=== PATIENT | female | born 1965 | race Caucasian/White ===

== ENCOUNTER → 2023-10-13 | Emergency (ER) | payer OTHER ==
[~2023-10-13] MED LIST: CEFTRIAXONE 2000 MG/VIAL ONE; FENTANYL CITR 100 MCG/2 ML ONE; KETOROLAC 30 MG/ML INJ ONE; LIDOCAINE 2% W/EPI 1:200,000 MPF 20 ML VIAL IM ONE; SMZ./TMP. 800/160 MG TABLET ONE
--- OUTSIDE RECORDS SUMMARY | 2023-10-13 13:58 | XMS REPORT | Continuity of Care Document ---
Author Name Unknown Address [address] [facility] [address] [place] [address] [facility] thconnect Address [address] [facility] [address] [place] [address] Care Team Providers Care Deli Cutter Slicer Name Role Phone Rios Cueto Primary Care Physician [phone] Doctor Unassigned, [place] Attending Clinician U José Miguel Hendricks Attending Clinician Unavailable CAROLA MEYERS Attending Clinician Unavailable Carola Meyers MD Attending Clinician [phone] Lisa Croft NP Attending Clinician + [phone] LISA CROFT Attending Clinician Unavaila ble GC_TFCLLC_Giles_M Attending Clinician UnavailAria Garcia Attending Clinician [phone] FANI HILLIARD Attending Clinician Unavailable SHAHLA COLON Attending Clinician Unavail able YESSENIA CARTWRIGHT Attending Clinician Unavailable SHAHLA COLON Attending Clinician Unavail able José Miguel Padilla Admitting Clinician Unavailable CAROLA MEYERS Admitting Clinician Unavailable Aria Olson Admitting Clinician Unavailabl e GC_TFCLLC_Giles_M Admitting Clinician UnavailFANI Lowery Admitting Clinician Unavailable SHAHLA COLON Admitting Clinician Unavail YESSENIA Elizondo Admitting Clinician Unavailable Payers Payer Name Policy Type Policy Number Effective Date Expirati on Date Source [facility] [place] [place]MED[place]PLAC[place] - [place]) [id number] 1959 00:00:00 Problems Condition Name Condition Details Condition Category Status Onset Date Resolution Date Last Treatment Date Treating Clinician Comments Source Severe obesity Severe Obesity Problem Active 4-18 00:00: 00 [facility] Lymphocyto sis Lymphocyto sis Problem Active 418 00:00: 00 [facility] Allergic rhinitis Allergic Rhinitis Problem Active 4-18 00:00: 00 [facility] Acute dermatitis Acute Dermatitis Problem Active 418 00:00: 00 [facility] Medication monitoring Medication Monitoring Problem Active 18 00:00: 00 [facility] Screening for cardiovasc ular system disease Screening for Cardiovasc ular System Disease Problem Active 18 00:00: 00 [facility] 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 angelita Problem Active 418 00:00: 00 [facility] Closed fracture of left wrist Closed fracture of left wrist Problem Active 3-12 00:00: [address] [facility] (LUF/LI V/SA) Systemic lupus erythemato angelita Systemic lupus erythemato angelita Problem Active [facility] (LUF/LI V/SA) No known active problems No known active problems Disease [facility] History of Past Illness Condition Name Condition Details Condition Category Status Onset Date Resolution Date Last Treatment Date Treating Clinician Comments Source Low back pain Low back pain Problem Active 02-19 00:00: 00 2019-02-19 00:00:[address] [facility] (LUF/LI V/SA) Allergies, Adverse Reactions, Alerts Allergy Name Allergy Type Status Severity Reaction(s) Onset Date Inactive Date Treating Clinician Comments Source No Known Allergie s DA Active U 12-20 00:00: 00 [facility] No Known Drug Allergie s DA Active [facility] (LUF/LI V/SA) NO KNOWN ALLERGIE S Drug Class Active [facility] Social History Social Habit Start Date Stop Date Quantity Comments Source Gender identity [facility] of tobacco use Cigarette Smoker [facility] History SDOH Alcohol Frequency [facility] History SDOH Alcohol Std Drinks [facility] History SDOH Alcohol Binge [facility] Exposure to SARS-CoV-2 (event) 2022-04-10 00:00:00 2022-04-20 11:51:00 Not sure [facility] History of Social function 2022-04-20 00:00:00 2022-04-20 00:00:00 [facility] Cigarettes smoked current (pack per day) - Reported 2022-04-20 00:00:00 2022-04-20 00:00:00 [facility] Cigarette pack-years 2022-04-20 00:00:00 2022-04-20 00:00:00 [facility] Tobacco use and exposure 2022-04-20 00:00:00 2022-04-20 00:00:00 Smokeless tobacco non-user [facility] Alcohol intake 2022-04-20 00:00:00 2022-04-20 00:00:00 Current drinker of alcohol (finding) [facility] Alcohol Comment 2022-04-20 00:00:00 2022-04-20 00:00:00 occasionally [facility] Sex Assigned At 1965 00:00:00 1965 00:00:00 [facility] Smoking Status Start Date Stop Date Source Smokes tobacco daily 2022-04-20 00:00:00 [facility] Medications Ordered Medication Name Filled Medication Name Start Date Stop Date Current Medication? Ordering Clinician Indication Dosage Frequency Signature (SIG) Comments Components Source POTASSIUM-9 9 ORAL 04-21 12:01: 50 Yes Take by mouth. [facility] POTASSIUM-9 9 ORAL 04-21 12:01: 50 Yes Take by mouth. [facility] POTASSIUM-9 9 ORAL 04-21 12:01: 50 Yes Take by mouth. [facility] furosemide 20 mg tablet 04-19 00:00: 00 Yes [facility] furosemide 20 mg tablet 04-19 00:00: 00 Yes [facility] furosemide 20 mg tablet 04-19 00:00: 00 Yes [facility] furosemide 20 mg tablet 04-19 00:00: 00 Yes [facility] PROAIR HFA 90 mcg/actuati on inhaler 04-01 00:00: 00 Yes 2{puff} Inhale 2 Puffs every 4 (four) hours. [facility] ergocalcife rol, vitamin d2, 1,250 mcg (50,000 unit) capsule 04-01 00:00: 00 Yes TAKE 1 CAPSULE BY MOUTH EVERY WEEK [facility] gabapentin 800 mg tablet 04-01 00:00: 00 Yes 800mg Take 800 mg by mouth in the morning and 800 mg at noon and 800 mg in the evening. [facility] methocarbam oL 500 mg tablet 04-01 00:00: 00 Yes 500mg Take 500 mg by mouth in the morning and 500 mg at noon and 500 mg in the evening. [facility] levothyroxi ne 200 mcg tablet 04-01 00:00: 00 Yes 200ug Take 200 mcg by mouth. [facility] DULoxetine 60 mg capsule 04-01 00:00: 00 Yes 60mg Take 60 mg by mouth in the morning. [facility] PROAIR HFA 90 mcg/actuati on inhaler 04-01 00:00: 00 Yes 2{puff} Inhale 2 Puffs every 4 (four) hours. [facility] ergocalcife rol, vitamin d2, 1,250 mcg (50,000 unit) capsule 04-01 00:00: 00 Yes TAKE 1 CAPSULE BY MOUTH EVERY WEEK [facility] gabapentin 800 mg tablet 04-01 00:00: 00 Yes 800mg Take 800 mg by mouth in the morning and 800 mg at noon and 800 mg in the evening. [facility] methocarbam oL 500 mg tablet 04-01 00:00: 00 Yes 500mg Take 500 mg by mouth in the morning and 500 mg at noon and 500 mg in the evening. [facility] levothyroxi ne 200 mcg tablet 04-01 00:00: 00 Yes 200ug Take 200 mcg by mouth. [facility] DULoxetine 60 mg capsule 04-01 00:00: 00 Yes 60mg Take 60 mg by mouth in the morning. [facility] PROAIR HFA 90 mcg/actuati on inhaler 04-01 00:00: 00 Yes 2{puff} Inhale 2 Puffs every 4 (four) hours. [facility] ergocalcife rol, vitamin d2, 1,250 mcg (50,000 unit) capsule 04-01 00:00: 00 Yes TAKE 1 CAPSULE BY MOUTH EVERY WEEK [facility] gabapentin 800 mg tablet 04-01 00:00: 00 Yes 800mg Take 800 mg by mouth in the morning and 800 mg at noon and 800 mg in the evening. [facility] methocarbam oL 500 mg tablet 04-01 00:00: 00 Yes 500mg Take 500 mg by mouth in the morning and 500 mg at noon and 500 mg in the evening. [facility] levothyroxi ne 200 mcg tablet 04-01 00:00: 00 Yes 200ug Take 200 mcg by mouth. [facility] DULoxetine 60 mg capsule 04-01 00:00: 00 Yes 60mg Take 60 mg by mouth in the morning. [facility] PROAIR HFA 90 mcg/actuati on inhaler 04-01 00:00: 00 Yes 2{puff} Inhale 2 Puffs every 4 (four) hours. [facility] ergocalcife rol, vitamin d2, 1,250 mcg (50,000 unit) capsule 04-01 00:00: 00 Yes TAKE 1 CAPSULE BY MOUTH EVERY WEEK [facility] gabapentin 800 mg tablet 04-01 00:00: 00 Yes 800mg Take 800 mg by mouth in the morning and 800 mg at noon and 800 mg in the evening. [facility] methocarbam oL 500 mg tablet 04-01 00:00: 00 Yes 500mg Take 500 mg by mouth in the morning and 500 mg at noon and 500 mg in the evening. [facility] levothyroxi ne 200 mcg tablet 04-01 00:00: 00 Yes 200ug Take 200 mcg by mouth. [facility] DULoxetine 60 mg capsule 04-01 00:00: 00 Yes 60mg Take 60 mg by mouth in the morning. [facility] triamcinolo ne acetonide 0.1 % cream 03-22 00:00: 00 Yes APPLY THIN LAYER TOPICALLY TO THE AFFECTED AREA TWICE DAILY [facility] triamcinolo ne acetonide 0.1 % cream 03-22 00:00: 00 Yes APPLY THIN LAYER TOPICALLY TO THE AFFECTED AREA TWICE DAILY [facility] triamcinolo ne acetonide 0.1 % cream 03-22 00:00: 00 Yes APPLY THIN LAYER TOPICALLY TO THE AFFECTED AREA TWICE DAILY [facility] triamcinolo ne acetonide 0.1 % cream 03-22 00:00: 00 Yes APPLY THIN LAYER TOPICALLY TO THE AFFECTED AREA TWICE DAILY [facility] Saxenda 3 mg/0.5 mL (18 mg/3 mL) subcutaneou s pen injector 0.6 mg everyday for the first week, 1.2 mg everyday for the second week, 1.8 mg everyday for the third week, and 2.4 mg everyday for the fourth week Saxenda 3 mg/0.5 mL (18 mg/3 mL) subcutaneou s pen injector 0.6 mg everyday for the first week, 1.2 mg everyday for the second week, 1.8 mg everyday for the third week, and 2.4 mg everyday for the fourth week No Saxenda 3 mg/0.5 mL (18 mg/3 mL) subcutaneo us pen injector 0.6 mg everyday for the first week, 1.2 mg everyday for the second week, 1.8 mg everyday for the third week, and 2.4 mg everyday for the fourth week [facility] Ibuprofen 800 MG Oral Tablet Ibuprofen 800 MG Oral Tablet Yes 800mg Q7.00H orally 3 to 4 times per day as needed. (as needed for pain) [facility] (LUF/LI V/SA) triamcinolo ne acetonide 0.1 % topical cream APPLY THIN LAYER TOPICALLY TO THE AFFECTED AREA TWICE DAILY triamcinolo ne acetonide 0.1 % topical cream APPLY THIN LAYER TOPICALLY TO THE AFFECTED AREA TWICE DAILY No triamcinol one acetonide 0.1 % topical cream APPLY THIN LAYER TOPICALLY TO THE AFFECTED AREA TWICE DAILY [facility] Vital Signs Vital Name Observation Time Observation Value Comments S atul Systolic blood pressure 2022-04-20 16:52:00 108 mm[Hg] [facility] Diastolic blood pressure 2022-04-20 16:52:00 75 mm[Hg] [facility] Heart rate 2022-04-20 16:52:00 59 /min [facility] Body temperature 2022-04-20 16:52:00 36.56 April [facility] Respiratory rate 2022-04-20 16:52:00 18 /min [facility] Body height 2022-04-20 16:52:00 157.5 cm [facility] Oxygen saturation in Arterial blood by Pulse oximetry 2022-04-20 16:52:00 95 /min [facility] BP Diastolic 2021-11-29 00:00:00 70 mm[Hg] [facility] Height 2021-11-29 00:00:00 64 [in_i] [facility] BMI (Body Mass Index) 2021-11-29 00:00:00 53.9 kg/m2 [facility] BP Systolic 2021-11-29 00:00:00 112 mm[Hg] [facility] Body Weight 2021-11-29 00:00:00 5024 [oz_av] [facility] Height 2019-10-31 18:26:00 154.94 CM Weight 2019-10-31 18:26:00 137.8 KG Weight 2019-10-27 07:29:00 134 KG Body Temperature 2019-10-31 18:26:00 98.4 [degF] [facility] (LUF/ROSEMARIE/SA) Pulse Rate 2019-10-31 18:26:00 84 /min [facility] (LUF/[facility]/SA) Respiratory Rate 2019-10-31 18:26:00 18 /min [facility] (LUF/ROSEMARIE/SA) O2% BldC Oximetry 2019-10-31 18:26:00 95 % [facility] (LUF/ROSEMARIE/SA) BP Systolic 2019-10-31 18:26:00 175 mm[Hg] [facility] (LUF/ROSEMARIE/SA) BP Diastolic 2019-10-31 18:26:00 101 mm[Hg] [facility] (LUF/ROSEMARIE/SA) Height 2019-10-31 18:26:00 61 [in_i] [facility] (LUF/ROSEMARIE/SA) Weight 2019-10-31 18:26:00 137.8 kg [facility] (LUF/ROSEMARIE/SA) BMI (Body Mass Index) 2019-10-31 18:26:00 58.1 kg/m2 [facility] (LUF/ROSEMARIE/SA) Body Temperature 2019-02-19 21:35:00 98.9 F [facility] (LUF/ROSEMARIE/SA) Pulse Rate 2019-02-19 21:35:00 86 /min [facility] (LUF/ROSEMARIE/SA) Respiratory Rate 2019-02-19 21:35:00 18 /min [facility] (LUF/ROSEMARIE/SA) O2% BldC Oximetry 2019-02-19 21:35:00 97 % [facility] (LUF/ROSEMARIE/SA) BP Systolic 2019-02-19 21:35:00 125 mm[Hg] [facility] (LUF/ROSEMARIE/SA) BP Diastolic 2019-02-19 21:35:00 80 mm[Hg] [facility] (LUF/ROSEMARIE/SA) Height 2019-02-19 21:31:00 62 in [facility] (LUF/ROSEMARIE/SA) Weight Measured 2019-02-19 21:31:00 288.14 lbs [facility] (LUF/ROSEMARIE/SA) BMI (Body Mass Index) 2019-02-19 21:31:00 53 kg/m2 [facility] (LUF/ROSEMARIE/SA) Procedures Procedure Date / Time Performed Performing Clinician Source REFERRAL- REQUEST/RESPONSE 2023-02-28 05:01:00 D filemonor Unassigned, [place] [facility] [id number] 2022-09-19 00:00:00 [facility] [id number] 2022-09-16 00:00:00 [facility] [id number] 2022-09-16 00:00:00 [facility] [id number] 2022-09-16 00:00:00 [facility] US PELVIS COMPLETE WITH TRANSVAGINAL 2022-05-09 20:36:00 AdumCarola [facility] POCT URINALYSIS 2022-04-20 17:07:00 [facility] Encounters Start Date/Time End Date/Time Encounter Type Admission Type Attending Clinicians Care Facility Care Department Encounter ID Source 2023-02-28 00:00:00 2023-02-28 00:00:00 Orders Only Doctor Unassigned, [place] [facility] [id number] [facility] 2022-10-24 08:49:00 2022-10-24 08:49:00 Outpatient José Miguel Grove RADI [id number] [facility] 2022-09-29 11:28:00 2022-09-29 11:28:00 Outpatient José Miguel Grove CPUL [id number] [facility] 2022-09-16 16:26:00 2022-09-22 16:57:00 Inpatient José Miguel Grove MED [id number] [facility] 2022-07-18 10:28:00 2022-07-18 10:28:00 Outpatient José Miguel Grove DIAB [id number] [facility] 2022-07-18 09:16:00 2022-07-18 09:16:00 Outpatient VALENTINA Padilla José Miguel [facility] RADI [id number] [facility] 2022-06-17 12:44:00 2022-06-17 12:44:00 Outpatient VALENTINA Padilla José Miguel [facility] DIAB [id number] [facility] 2022-05-09 14:10:44 2022-05-09 23:59:00 Outpatient R CAROLA MEYERS [facility] [id number] [facility] 2022-05-09 14:10:44 2022-05-09 23:59:00 Hospital Encounter Carola Meyers [facility] [id number] [id number] [facility] 2022-04-20 11:00:00 2022-04-20 12:24:36 Office Visit Carola Meyers [facility] [id number] [id number] [id number] [id number] [facility] 2022-04-20 11:00:00 2022-04-20 12:24:36 Outpatient R LISA CROFT [facility] [id number] [facility] 2022-04-20 11:00:00 2022-04-20 12:24:36 Outpatient R LISA CROFT [facility] [id number] [facility] 2022-04-20 00:00:00 2022-04-20 00:00:00 Orders Only Doctor Unassigned, [place] [facility] [id number] [id number] [id number] [id number] [facility] 2022-04-20 00:00:00 2022-04-20 00:00:00 Telephone AdCarola hung [facility] [id number] [id number] [id number] [facility] 2021-12-24 06:43:00 2021-12-24 06:43:00 Outpatient José Miguel Grove [facility] DAYS [id number] [facility] 2021-11-30 03:38:00 2021-11-30 03:38:00 Outpatient GC_TFCLLC_G iles_M [facility] PRIV [id number] [facility] 2021-11-29 04:52:00 2021-11-29 04:52:00 Outpatient GC_TFCLLC_G iles_M [facility] [id number] [facility] 2021-11-29 00:00:00 2021-11-29 00:00:00 Aria Olson MD: [address] [place], [place] [address]y, [facility] [address], [place] [address] , Ph. Critical access hospital - GC_TFCLLC_P [facility] Office* [id number] [facility] 2021-11-29 00:00:00 2021-11-29 00:00:00 Outpatient Aria Olson [facility] [id number] 2021-11-22 04:08:00 2021-11-22 04:08:00 Outpatient GC_TFCLLC_G iles_M [facility] [id number] [facility] 2019-10-31 18:20:00 2019-10-31 20:06:00 UNS PHYSL FX LOW RAD LT SUB FX RTN [address] EMD [id number] [facility] (LUF/LI V/SA) 2019-02-19 21:24:00 2019-02-19 23:06:00 LOW BACK PAIN SHAHLA SULTANA [facility], [address] [place] [address] [facility] [id number] [facility] (LUF/LI V/SA) Results Test Description Test Time Test Comments Results Resul t Comments Source - XR UGI DBL CONTRAST 2022-10-24 10:31:00 [facility]Name: BUTCH ROCHA : 1965 Sex: F FAX: José Miguel Smith MD [phone] [place]: B St: REG Name: BUTCH ROCHA [facility] : 1965 Age/S: 57/F [address] [facility] Unit #: [id number] Loc: [place] [address] Phys: José Miguel Padilla MD Acct: [id number] Dis Date: Status: REG CLI PHONE #: [phone] Exam Date: 10/24/202257 FAX #: [phone] Reason: POST SLEEVE GASTRECTOMY DYSPHAGIA EXAMS: CPT CODE: [id number] XR UGI DBL CONTRAST [id number] HISTORY: Post gastric sleeve and dysphasia. COMPARISON: Upper GI series from September 19, 2022 and June 20182021. Upper GI series: Esophagus distended well. Free passage of contrast through the esophagus. No constricting or obstructing lesions. Moderate reflux is noted. Free passage through the GE junction. Gastric sleeve is unremarkable without evidence for leakage. Free passage into the small bowel. Barium pill was administered with free passage through the GE junction. IMPRESSION: Moderate reflux. No esophagitis obstructing or constricting lesions. Gastric sleeve is unremarkable without leakage or obstruction. Fluoroscopy time 0.7 minutes with total dose of 400 mGy. 24 images were obtained. at 1031 Reported and signed by: Kodi Aguilar M.D. CC: José Miguel Padilla MD Technologist: RT ROSA ELENA(R) Trnscrd Date/Time/By: 10/24/2022 (1031) : By: [email or web address] Orig Print D/T: S: 10/24/2022 (2017) PAGE 1 Signed Report CBC W/AUTO [id number] 05:44:00* Test Item Value Reference Range Interpretation Comme nts WHITE BLOOD CELL (test code = WBC) 7.8 K/mm3 4.5-12.5 N RED BLOOD CELL (test code = RBC) 3.97 mill/mm3 3.7-5.2 N HEMOGLOBIN (test code = HGB) 12.8 gram/dL 11.5-15.5 N HEMATOCRIT (test code = HCT) 38.7 % 36.0-46.0 N MEAN CELL VOLUME (test code = MCV) 97.5 fL 80-98 N MEAN CELL HGB (test code = MCH) 32.2 picogram 27.0-33.0 N MEAN CELL HGB CONCETRATION (test code = MCHC) 33.1 gram/dL 33.0-36.0 N RED CELL DISTRIBUTION WIDTH (test code = RDW) 15.2 % 11.6-16.2 N RED CELL DISTRIBUTION WIDTH SD (test code = RDW-SD) 55.3 fL 37.0-51.0 H PLATELET COUNT (test code = PLT) 202 K/mm3 150-450 N MEAN PLATELET VOLUME (test c ode = MPV) 9.6 fL 6.7-11.0 N NEUTROPHIL % (test code = NT%) 70.7 % 39.0-69.0 H IMMATURE GRANULOCYTE % (test code = IG%) 0.3 % 0.0-5.0 N LYMPHOCYTE % (test code = LY%) 17.5 % 25.0-55.0 L MONOCYTE % (test code = MO%) 8.6 % 0.0-10.0 N EOSINOPHIL % (test code = EO%) 2.4 % 0.0-5.0 N BASOPHIL % (test code = BA%) 0.5 % 0.0-1.0 N NUCLEATED RBC % (test code = NRBC%) 0.0 % 0-0 N NEUTROPHIL # (test code = NT#) 5.48 K/mm3 1.8-7.7 N IMMATURE GRANULOCYTE # (test code = IG#) 0.02 x10 3/uL 0-0.03 N LYMPHOCYTE # (test code = LY#) 1.36 K/mm3 1.0-5.0 N MONOCYTE # (test code = MO#) 0.67 K/mm3 0-0.8 N EOSINOPHIL # (test code = EO#) 0.19 K/mm3 0.0-0.5 N BASOPHIL # (test code = BA#) 0.04 K/mm3 0.0-0.2 N NUCLEATED RBC # (test code = NRBC#) 0.00 K/mm3 0.0-0.1 N MANUAL DIFF REQUIRED (test c ode = MDIFF) NO BASIC METABOLIC [id number] 05:37:00* Test Item Value Reference Range Interpretation Comme nts SODIUM (test code = NA) 139 mmol/L 136-145 N POTASSIUM (test code = K) 3.8 mmol/L 3.5-5.1 N CHLORIDE (test code = CL) 106.0 mmol/L 98-107 N CARBON DIOXIDE (test code = CO2) 31.0 mmol/L 21-32 N ANION GAP (test code = GAP) 5.8 10-20 L GLUCOSE (test code = GLU) 85 mg/dL 74-106 N BLOOD UREA NITROGEN (test code = BUN) 9 mg/dL 7-18 N GLOMERULAR FILTRATION RATE (test code = GFR) > 60 mL/min See_Comment The Glomerular Filtration Rate is a calculated parameterbased on serum Creatinine, patient age and sex. GFR valuesless than 60 mL/min/1.73 square meters are indicative ofChronic Kidney Disease. Values less than 15 mL/min/1.73square meters indicate Kidney failure. The calculation forGFR is based on the CKD-EPI (2020) calculation. This formulais race indifferent and is the recommended formula for GFRby the National Kidney Foundation for Adults.The GFR will not calculate if the sex is unknown or if thepatient's age is <18 years. [Automated message] The system which generated this result transmitted reference range: >=60. The reference range was not used to interpret this result as normal/abnormal. CREATININE (test code = CREAT) 0.60 mg/dL 0.55-1.02 N Note change in reference range due to change in reagent. BUN/CREATININE RATIO (test code = BUN/CREA) 13.8 10-20 N CALCIUM (test code = CA) 7.9 mg/dL 8.5-10.1 L CBC W/AUTO [id number] 05:33:00* Test Item Value Reference Range Interpretation Comme nts WHITE BLOOD CELL (test code = WBC) 7.7 K/mm3 4.5-12.5 N RED BLOOD CELL (test code = RBC) 3.88 mill/mm3 3.7-5.2 N HEMOGLOBIN (test code = HGB) 12.4 gram/dL 11.5-15.5 N HEMATOCRIT (test code = HCT) 38.1 % 36.0-46.0 N MEAN CELL VOLUME (test code = MCV) 98.2 fL 80-98 H MEAN CELL HGB (test code = MCH) 32.0 picogram 27.0-33.0 N MEAN CELL HGB CONCETRATION (test code = MCHC) 32.5 gram/dL 33.0-36.0 L RED CELL DISTRIBUTION WIDTH (test code = RDW) 15.5 % 11.6-16.2 N RED CELL DISTRIBUTION WIDTH SD (test code = RDW-SD) 55.8 fL 37.0-51.0 H PLATELET COUNT (test code = PLT) 178 K/mm3 150-450 N MEAN PLATELET VOLUME (test c ode = MPV) 9.5 fL 6.7-11.0 N NEUTROPHIL % (test code = NT%) 72.5 % 39.0-69.0 H IMMATURE GRANULOCYTE % (test code = IG%) 0.3 % 0.0-5.0 N LYMPHOCYTE % (test code = LY%) 15.8 % 25.0-55.0 L MONOCYTE % (test code = MO%) 9.1 % 0.0-10.0 N EOSINOPHIL % (test code = EO%) 1.9 % 0.0-5.0 N BASOPHIL % (test code = BA%) 0.4 % 0.0-1.0 N NUCLEATED RBC % (test code = NRBC%) 0.0 % 0-0 N NEUTROPHIL # (test code = NT#) 5.58 K/mm3 1.8-7.7 N IMMATURE GRANULOCYTE # (test code = IG#) 0.02 x10 3/uL 0-0.03 N LYMPHOCYTE # (test code = LY#) 1.22 K/mm3 1.0-5.0 N MONOCYTE # (test code = MO#) 0.70 K/mm3 0-0.8 N EOSINOPHIL # (test code = EO#) 0.15 K/mm3 0.0-0.5 N BASOPHIL # (test code = BA#) 0.03 K/mm3 0.0-0.2 N NUCLEATED RBC # (test code = NRBC#) 0.00 K/mm3 0.0-0.1 N [id number] 15:35:00* Test Item Value Reference Range Interpretation Comme nts SURGICAL (test code = SR) Justice UN DATE: 09/19/22 [facility] PAGE 1 RUN TIME: 1536 Specimen Inquiry RUN USER: INTERFACE Ciro ATIENT: BUTCH ROCHA #: [id number] LOC: VICTOR MANUEL [place] #: [id number] AGE/SX: 57/F ROOM: [facility]9 RE09/16/22REG DR: José Miguel Padilla MD : 65 BED: A DIS: STATUS: ADM IN TLOC: SPEC #: [id number] RECD: 09/16/22 STATUS: MARY ANN RE #: [id number] GEORGE: 09/16/22- SUBM DR: José Miguel Padilla MD ENTERED: 09/16/22 SP TYPE: SURGICAL OTHR DR: Marco Anthony MD ORDERED: [id number], ANATOMIC SPEC COPIES TO: José Miguel Padilla MD [address] [place] [address] Marco Anthony MD [address] [address] [place], [place] [id number] PROCEDURES: [id number] (09/16/22) TISSUES: STOMACH SUBTOTAL / TOTAL RESECTION NOT TUMOR/SLEEVE - PORTION OF STOMACH FINAL DIAGNOSIS PORTION OF STOMACH, SLEEVE GASTRECTOMY: - Mild chronic gastritis. - Negatives for ulcer, polyp, and malignancy. GROSS DESCRIPTION Specimen A is received in formalin, labeled with the patient's name, medical record number,"portion of stomach" and consists of an intact partial gastrectomy specimen (12.0 cm inlength x 3.0 cm in diameter) with a stapled resection margin on one aspect (12.0 cm inlength). The serosa is delarosa-pink smooth with focal areas of adhesions. The stapledresesection margin is removed and the specimen is opened to reveal delarosa-pink mucosa. Nomasses or perforations are grossly identified. Unemployment Examiner sections are submitted in A1to include the stapled resection margin en face and sales representative publications of the mucosa in A2. Technical component excluding immunohistochemistry is performed at [facility], [address] [place] [address] Technical component of all immunohistochemistry is performed at [facility], [address] [place] [address], [address], [place] [address] Immunohistochemistry: This test was developed and its performance characteristicsdetermined by this laboratory. It has not been approved nor does it need approval by the USFDA. Appropriate positive and negative controls are reviewed and judged to be acceptable.This laboratory is certified under the Clinical Laboratory Improvement Amendments (CLIA-88) CONTINUED ON NEXT PAGE R AMPARO DATE: 09/19/22 [facility] Lab PAGE 2 RUN TIME: 1536 Specimen Inquiry RUN USER: INTERFACE S LULY #: [id number] PATIENT: BUTCH ROCHA #[id number] (Continued) GROSS DESCRIPTION (Continued) as qualified to perform high complexity clinical laboratory testing. Unless gross only, the diagnosis is based upon microscopic examination. CLINICAL INFORMATION COLLECTION DATE: 09/16/2022 --------- Signed SIGNATURE ON FILE Pebbles Kearns 09/19/22 1535 END OF REPORT Alessandro KHANNA SNGL [id number] 09:34:00 [facility] MARY ANN ROCHAN ZACH : 1965 Sex: F FAX: José Miguel Smith MD [phone] [place]: B St: ADM Name: JADIELBUTCH ZACH [facility] : 1965 Age/S: 57/F [address] [facility] Unit #: [id number] Loc: V.3039 [place]IE Hines [address] Phys: José Miguel Padilla MD Acct: [id number] Dis Date: Status: ADM IN PHONE #: [phone] Exam Date: 09/19/2022835 FAX #: [phone] Reason: post sleeve gastrectomy dysphagia EXAMS: CPT CODE: [id number] XR UGI SNGL CONTRAST [id number] EXAMINATION: - XR UGI SNGL CONTRAST. HISTORY: post sleeve gastrectomy dysphagia. COMPARISON: None. TECHNIQUE: Upper GI examination was performed with the oral administration of barium. Fluoroscopy Time: 1.3 minutes Number of Images: 3 FINDINGS: Views of the esophagus demonstrated no evidence of obstruction, perforation, or stricture. There is delayed passage of contrast through the gastroesophageal junction. Additionally there was spasming as well as tertiary contractions of the esophagus. The stomach had a contour consistent with sleep gastrectomy. There was prompt gastric emptying with a normal appearance and configuration of the duodenum. No gastroesophageal reflux was identified during the examination. The caliber and appearance of the visualized small bowel appears normal. IMPRESSION: Delayed passage of contrast through the gastroesophageal junction with spasming of the esophagus and tertiary esophageal contractions. Location: [facility] at 0934 Reported and signed by: Eliud Baptiste MD CC: José Miguel Padilla MD Technologist: RT ROSA ELENA(R) Trnscrd Date/Time/By: 09/19/2022 (0934) : By: [email or web address] Orig Print D/T: S: 09/19/2022 (2429) PAGE 1 Signed ReportBASIC METABOLIC [id number] 07:13:00* Test Item Value Reference Range Interpretation Comme nts SODIUM (test code = NA) 138 mmol/L 136-145 N POTASSIUM (test code = K) 3.1 mmol/L 3.5-5.1 L CHLORIDE (test code = CL) 105.0 mmol/L 98-107 N CARBON DIOXIDE (test code = CO2) 31.0 mmol/L 21-32 N ANION GAP (test code = GAP) 5.1 10-20 L GLUCOSE (test code = GLU) 96 mg/dL 74-106 N BLOOD UREA NITROGEN (test code = BUN) 7 mg/dL 7-18 N GLOMERULAR FILTRATION RATE (test code = GFR) > 60 mL/min See_Comment The Glomerular Filtration Rate is a calculated parameterbased on serum Creatinine, patient age and sex. GFR valuesless than 60 mL/min/1.73 square meters are indicative ofChronic Kidney Disease. Values less than 15 mL/min/1.73square meters indicate Kidney failure. The calculation forGFR is based on the CKD-EPI (2020) calculation. This formulais race indifferent and is the recommended formula for GFRby the National Kidney Foundation for Adults.The GFR will not calculate if the sex is unknown or if thepatient's age is <18 years. [Automated message] The system which generated this result transmitted reference range: >=60. The reference range was not used to interpret this result as normal/abnormal. CREATININE (test code = CREAT) 0.60 mg/dL 0.55-1.02 N Note change in reference range due to change in reagent. BUN/CREATININE RATIO (test code = BUN/CREA) 10.9 10-20 N CALCIUM (test code = CA) 7.9 mg/dL 8.5-10.1 L BASIC METABOLIC [id number] 07:53:00* Test Item Value Reference Range Interpretation Comme nts SODIUM (test code = NA) 139 mmol/L 136-145 N POTASSIUM (test code = K) 2.7 mmol/L 3.5-5.1 LL Results called t o [id number] by [id number] 09/18/22 0753Critical results verified and read back by Nurse? Y FOR ALL ICU PATIENT EXCLUDING HOLD PLEASE CALL [phone] * CHLORIDE (test code = CL) 104.0 mmol/L 98-107 N CARBON DIOXIDE (test code = CO2) 30.0 mmol/L 21-32 N ANION GAP (test code = GAP) 7.7 10-20 L GLUCOSE (test code = GLU) 88 mg/dL 74-106 N BLOOD UREA NITROGEN (test code = BUN) 9 mg/dL 7-18 N GLOMERULAR FILTRATION RATE (test code = GFR) > 60 mL/min See_Comment The Glomerular Filtration Rate is a calculated parameterbased on serum Creatinine, patient age and sex. GFR valuesless than 60 mL/min/1.73 square meters are indicative ofChronic Kidney Disease. Values less than 15 mL/min/1.73square meters indicate Kidney failure. The calculation forGFR is based on the CKD-EPI (2021) calculation. This formulais race indifferent and is the recommended formula for GFRby the National Kidney Foundation for Adults.The GFR will not calculate if the sex is unknown or if thepatient's age is <18 years. [Automated message] The system which generated this result transmitted reference range: >=60. The reference range was not used to interpret this result as normal/abnormal. CREATININE (test code = CREAT) 0.70 mg/dL 0.55-1.02 N Note change in reference range due to change in reagent. BUN/CREATININE RATIO (test code = BUN/CREA) 12.5 10-20 N CALCIUM (test code = CA) 8.2 mg/dL 8.5-10.1 L CBC W/AUTO [id number] 07:45:00* Test Item Value Reference Range Interpretation Comme nts WHITE BLOOD CELL (test code = WBC) 10.3 K/mm3 4.5-12.5 N RED BLOOD CELL (test code = RBC) 4.15 mill/mm3 3.7-5.2 N HEMOGLOBIN (test code = HGB) 13.2 gram/dL 11.5-15.5 N HEMATOCRIT (test code = HCT) 39.6 % 36.0-46.0 N MEAN CELL VOLUME (test code = MCV) 95.4 fL 80-98 N MEAN CELL HGB (test code = MCH) 31.8 picogram 27.0-33.0 N MEAN CELL HGB CONCETRATION (test code = MCHC) 33.3 gram/dL 33.0-36.0 N RED CELL DISTRIBUTION WIDTH (test code = RDW) 15.7 % 11.6-16.2 N RED CELL DISTRIBUTION WIDTH SD (test code = RDW-SD) 55.1 fL 37.0-51.0 H PLATELET COUNT (test code = PLT) 189 K/mm3 150-450 RESULT VERIFIED BY REPEAT ANALYSIS MEAN PLATELET VOLUME (test code = MPV) 9.6 fL 6.7-11.0 N NEUTROPHIL % (test code = NT%) 73.6 % 39.0-69.0 H IMMATURE GRANULOCYTE % (test code = IG%) 0.4 % 0.0-5.0 N LYMPHOCYTE % (test code = LY%) 16.2 % 25.0-55.0 L MONOCYTE % (test code = MO%) 8.0 % 0.0-10.0 N EOSINOPHIL % (test code = EO%) 1.4 % 0.0-5.0 N BASOPHIL % (test code = BA%) 0.4 % 0.0-1.0 N NUCLEATED RBC % (test code = NRBC%) 0.0 % 0-0 N NEUTROPHIL # (test code = NT#) 7.60 K/mm3 1.8-7.7 N IMMATURE GRANULOCYTE # (test code = IG#) 0.04 x10 3/uL 0-0.03 H LYMPHOCYTE # (test code = LY#) 1.67 K/mm3 1.0-5.0 N MONOCYTE # (test code = MO#) 0.83 K/mm3 0-0.8 H EOSINOPHIL # (test code = EO#) 0.14 K/mm3 0.0-0.5 N BASOPHIL # (test code = BA#) 0.04 K/mm3 0.0-0.2 N NUCLEATED RBC # (test code = NRBC#) 0.00 K/mm3 0.0-0.1 N [id number] 15:21:00* Test Item Value Reference Range Interpretation Comme nts POTASSIUM (test code = K) 3.3 mmol/L 3.5-5.1 L [id number] 10:04:00* Test Item Value Reference Range Interpretation Comme nts MAGNESIUM (test code = MAG) 1.9 mg/dL 1.8-2.4 N SPECIMEN COMMENTS: add onCOMMENTS TO SANDING LINE OPERATOR: add onBASIC METABOLIC PANEL 2022-09-17 06:09:00* Test Item Value Reference Range Interpretation Comme nts SODIUM (test code = NA) 139 mmol/L 136-145 N POTASSIUM (test code = K) 2.7 mmol/L 3.5-5.1 LL Results called t o [id number] by LUCY 09/17/22 0609Critical results verified and read back by Nurse? YRESULT VERIFIED BY REPEAT ANALYSISFOR ALL ICU PATIENT EXCLUDING HOLD PLEASE CALL [phone] * CHLORIDE (test code = CL) 103.0 mmol/L 98-107 N CARBON DIOXIDE (test code = CO2) 31.0 mmol/L 21-32 N ANION GAP (test code = GAP) 7.7 10-20 L GLUCOSE (test code = GLU) 140 mg/dL 74-106 H BLOOD UREA NITROGEN (test code = BUN) 21 mg/dL 7-18 H GLOMERULAR FILTRATION RATE (test code = GFR) > 60 mL/min See_Comment The Glomerular Filtration Rate is a calculated parameterbased on serum Creatinine, patient age and sex. GFR valuesless than 60 mL/min/1.73 square meters are indicative ofChronic Kidney Disease. Values less than 15 mL/min/1.73square meters indicate Kidney failure. The calculation forGFR is based on the CKD-EPI (202) calculation. This formulais race indifferent and is the recommended formula for GFRby the National Kidney Foundation for Adults.The GFR will not calculate if the sex is unknown or if thepatient's age is <18 years. [Automated message] The system which generated this result transmitted reference range: >=60. The reference range was not used to interpret this result as normal/abnormal. CREATININE (test code = CREAT) 1.00 mg/dL 0.55-1.02 N Note change in reference range due to change in reagent. BUN/CREATININE RATIO (test code = BUN/CREA) 20.4 10-20 H CALCIUM (test code = CA) 7.8 mg/dL 8.5-10.1 L CBC W/AUTO [id number] 05:53:00* Test Item Value Reference Range Interpretation Comme nts WHITE BLOOD CELL (test code = WBC) 16.9 K/mm3 4.5-12.5 H RED BLOOD CELL (test code = RBC) 4.53 mill/mm3 3.7-5.2 N HEMOGLOBIN (test code = HGB) 14.5 gram/dL 11.5-15.5 N HEMATOCRIT (test code = HCT) 42.6 % 36.0-46.0 N MEAN CELL VOLUME (test code = MCV) 94.0 fL 80-98 N MEAN CELL HGB (test code = MCH) 32.0 picogram 27.0-33.0 N MEAN CELL HGB CONCETRATION (test code = MCHC) 34.0 gram/dL 33.0-36.0 N RED CELL DISTRIBUTION WIDTH (test code = RDW) 15.4 % 11.6-16.2 N RED CELL DISTRIBUTION WIDTH SD (test code = RDW-SD) 53.4 fL 37.0-51.0 H PLATELET COUNT (test code = PLT) 259 K/mm3 150-450 N MEAN PLATELET VOLUME (test c ode = MPV) 9.3 fL 6.7-11.0 N NEUTROPHIL % (test code = NT%) 86.2 % 39.0-69.0 H IMMATURE GRANULOCYTE % (test code = IG%) 0.5 % 0.0-5.0 N LYMPHOCYTE % (test code = LY%) 4.5 % 25.0-55.0 L MONOCYTE % (test code = MO%) 8.7 % 0.0-10.0 N EOSINOPHIL % (test code = EO%) 0.0 % 0.0-5.0 N BASOPHIL % (test code = BA%) 0.1 % 0.0-1.0 N NUCLEATED RBC % (test code = NRBC%) 0.0 % 0-0 N NEUTROPHIL # (test code = NT#) 14.54 K/mm3 1.8-7.7 H IMMATURE GRANULOCYTE # (test code = IG#) 0.08 x10 3/uL 0-0.03 H LYMPHOCYTE # (test code = LY#) 0.76 K/mm3 1.0-5.0 L MONOCYTE # (test code = MO#) 1.47 K/mm3 0-0.8 H EOSINOPHIL # (test code = EO#) 0.00 K/mm3 0.0-0.5 N BASOPHIL # (test code = BA#) 0.02 K/mm3 0.0-0.2 N NUCLEATED RBC # (test code = NRBC#) 0.00 K/mm3 0.0-0.1 N [id number] 06:57:00* Test Item Value Reference Range Interpretation Comme nts GLUBED (test code = GLUBED) 148 mg/dL 74-106 H Performed by cer redd knockout machine operator at [facility] COMPREHENSIVE METABOLIC [id number] 11:55:00* Test Item Value Reference Range Interpretation Comme nts SODIUM (test code = NA) 137 mmol/L 136-145 N POTASSIUM (test code = K) 3.7 mmol/L 3.5-5.1 N CHLORIDE (test code = CL) 98.0 mmol/L 98-107 N CARBON DIOXIDE (test code = CO2) 30.0 mmol/L 21-32 N ANION GAP (test code = GAP) 12.7 10-20 N GLUCOSE (test code = GLU) 111 mg/dL 74-106 H BLOOD UREA NITROGEN (test code = BUN) 17 mg/dL 7-18 N GLOMERULAR FILTRATION RATE (test code = GFR) > 60 mL/min See_Comment The Glomerular Filtration Rate is a calculated parameterbased on serum Creatinine, patient age and sex. GFR valuesless than 60 mL/min/1.73 square meters are indicative ofChronic Kidney Disease. Values less than 15 mL/min/1.73square meters indicate Kidney failure. The calculation forGFR is based on the CKD-EPI (202) calculation. This formulais race indifferent and is the recommended formula for GFRby the National Kidney Foundation for Adults.The GFR will not calculate if the sex is unknown or if thepatient's age is <18 years. [Automated message] The system which generated this result transmitted reference range: >=60. The reference range was not used to interpret this result as normal/abnormal. CREATININE (test code = CREAT) 1.00 mg/dL 0.55-1.02 N Note change in reference range due to change in reagent. BUN/CREATININE RATIO (test code = BUN/CREA) 16.7 10-20 N TOTAL PROTEIN (test code = PROT) 7.6 gram/dL 6.4-8.2 N ALBUMIN (test code = ALB) 4.2 g/dL 3.4-5.0 N GLOBULIN (test code = GLOB) 3.4 gram/dL 2.7-4.2 N ALBUMIN/GLOBULIN RATIO (test code = A/G) 1.2 0.75-1.50 N CALCIUM (test code = CA) 9.4 mg/dL 8.5-10.1 N BILIRUBIN TOTAL (test code = BILT) 0.70 mg/dL 0.0-1.0 N SGOT/AST (test code = AST) 22 IUnit/L 15-37 N SGPT/ALT (test code = ALT) 36 IUnit/L 12-78 N ALKALINE PHOSPHATASE TOTAL (test code = ALKP) 72 IUnit/L 45-117 N Note change in reference range due to change in reagent. CBC W/AUTO [id number] 11:38:00* Test Item Value Reference Range Interpretation Comme nts WHITE BLOOD CELL (test code = WBC) 13.2 K/mm3 4.5-12.5 H RED BLOOD CELL (test code = RBC) 5.01 mill/mm3 3.7-5.2 N HEMOGLOBIN (test code = HGB) 15.9 gram/dL 11.5-15.5 H HEMATOCRIT (test code = HCT) 47.1 % 36.0-46.0 H MEAN CELL VOLUME (test code = MCV) 94.0 fL 80-98 N MEAN CELL HGB (test code = MCH) 31.7 picogram 27.0-33.0 N MEAN CELL HGB CONCETRATION (test code = MCHC) 33.8 gram/dL 33.0-36.0 N RED CELL DISTRIBUTION WIDTH (test code = RDW) 15.5 % 11.6-16.2 N RED CELL DISTRIBUTION WIDTH SD (test code = RDW-SD) 53.1 fL 37.0-51.0 H PLATELET COUNT (test code = PLT) 288 K/mm3 150-450 N MEAN PLATELET VOLUME (test c ode = MPV) 9.2 fL 6.7-11.0 N NEUTROPHIL % (test code = NT%) 84.7 % 39.0-69.0 H IMMATURE GRANULOCYTE % (test code = IG%) 0.5 % 0.0-5.0 N LYMPHOCYTE % (test code = LY%) 8.8 % 25.0-55.0 L MONOCYTE % (test code = MO%) 4.6 % 0.0-10.0 N EOSINOPHIL % (test code = EO%) 1.0 % 0.0-5.0 N BASOPHIL % (test code = BA%) 0.4 % 0.0-1.0 N NUCLEATED RBC % (test code = NRBC%) 0.0 % 0-0 N NEUTROPHIL # (test code = NT#) 11.17 K/mm3 1.8-7.7 H IMMATURE GRANULOCYTE # (test code = IG#) 0.06 x10 3/uL 0-0.03 H LYMPHOCYTE # (test code = LY#) 1.16 K/mm3 1.0-5.0 N MONOCYTE # (test code = MO#) 0.61 K/mm3 0-0.8 N EOSINOPHIL # (test code = EO#) 0.13 K/mm3 0.0-0.5 N BASOPHIL # (test code = BA#) 0.05 K/mm3 0.0-0.2 N NUCLEATED RBC # (test code = NRBC#) 0.00 K/mm3 0.0-0.1 N MANUAL DIFF REQUIRED (test c ode = MDIFF) NO - XR UGI DBL [id number] 11:38:00 [facility] MARY ANN ROCHAOrlin SERRANO : 1965 Sex: F FAX: José Miguel Smith MD [phone] [place]: B St: REG Name: [facility]IDAMICHABUTCH [facility] : 1965 Age/S: 56/F [address] Unit #: [id number] Loc: [place] [address] Phys: José Miguel Padilla MD Acct: [id number] Dis Date: Status: REG CLI PHONE #: [phone] Exam Date: 07/18/2022 1020 FAX #: [phone] Reason: DYSPHAGIA EXAMS: CPT CODE: [id number] XR UGI DBL CONTRAST [id number] HISTORY: Dysphagia. COMPARISON: None available Location: [facility]. Esophagus distended well. Free passage of contrast through the esophagus without constricting or constricting lesions. Motility is normal. Free passage through the GE junction. No esophagitis is noted. Mild reflux. The stomach is distended well. There is no rugal fold thickening. No ulceration is noted. Small hiatal hernia is noted. Duodenal bulband sweep are normal. IMPRESSION: Small hiatal hernia. Mild reflux. No obstructing or constrictinglesions. No esophagitis, duodenitis or gastritis. Fluoroscopy time utilized was 1 minute. Total dose of 320 mGy. 32 images were obtained. at 1138 Reported and signed by: Kodi Aguilar M.D. CC: José Miguel Padilla MD Technologist: Melanie Pearce RT(R) Trnscrd Date/Time/By: 07/18/2022 (1137) : By: [email or web address] Orig Print D/T: S: 07/18/2022 (0243) PAGE 1 Signed ReportPOCT URINALYSIS W SPECIFIC [id number] 17:08:00* Test Item Value Reference Range Interpretation Comme nts POCT U SP GRAV (test code = 3255) N/A 1.005-1.025 POCT PH U (test code = 3254) 5 mg/dl 5-8 POCT U LEUK EST (test code = 3263) Negative Negative - Negative POCT U NIT (test code = 3262) Negative Negative - Negati ve POCT U PROT (test code = 3259) Negative Negative - Negat ruthie POCT U GLU (test code = 3256) N/A Negative - Negati ve POCT U KETONE (test code = 3258) Negative Negative - Neg ative POCT U UROBILI (test code = 3260) Negative 0.2-1 POCT U BILI (test code = 3261) N/A Negative - Negat ruthie POCT U BLD (test code = 3257) Negative Negative - Negati ve POCT U COLOR (test code = 3266) yellow POCT U APPEAR (test code = 3267) clear [facility] 13:08:00* Test Item Value Reference Range Interpretation Comme nts SURGICAL (test code = SR) --RUN DATE: 12/27/21 [facility] PAGE 1 RUN TIME: 1309 Specimen Inquiry RUN USER: INTERFACE --PATIENT: BUTCH ROCHA LOC: MohitTRISH U #: [id number] AGE/SX: 56/F ROOM: RE12/24/21REG DR: José Miguel Padilla MD : 65 BED: DIS: STATUS: [facility] TLOC: -- SPEC #: [id number] RECD: 12/24/21 STATUS: MARY ANN CHERY #: [id number] GEORGE: 12/24/[address] [facility] [address]: José Miguel Padilla MD ENTERED: 12/24/21 SP TYPE: SURGICAL OTHR DR: Aria Olson MD ORDERED: 70953, 14837/2, ANATOMIC SPEC COPIES TO: Aria Olson MD [address] [place] [address] José Miguel Padilla MD [address] [place] [address] PROCEDURES: [id number] (12/24/21) 31083 (12/27/21-1305) TISSUES: A. LIPOMA B. BACK, NOS - LARGE MOLE C. BACK, NOS - SMALL MOLE FINAL DIAGNOSIS A) SOFT TISSUE, NECK MASS, EXCISION: -Benign lipoma. B) SKIN, LARGE BACK MOLE, EXCISION: -Pigmented seborrheic keratosis. -Negative for malignancy. C) SKIN, SMALL BACK MOLE, EXCISION: -Pigmented seborrheic keratosis: -Negative for malignancy. GROSS DESCRIPTION A). The specimen is received in formalin labeled, "lipoma" and consists of a wellencapsulated uymzjz-fvi-bjpgfhblxk fatty tissue mass measuring 5.5 x 4.5 x 3.2 cm andweighing 43.3 g. The specimen is sectioned to reveal a homogeneous yellow-delarosa glisteningfatty cut surface with no apparent the fibrotic areas. The specimen is representativelysampled in cassette A1 B). The specimen received in formalin labeled, "large back mole" and consists of a single CONTINUED ON NEXT PAGE --RUN DATE: 12/27/21 [facility] PAGE 2 RUN TIME: 1309 Specimen Inquiry RUN USER: INTERFACE --SPEC #: [id number] PATIENT: BUTCH ROCHA #[id number] (Continued) GROSS DESCRIPTION (Continued) unoriented segment pink-delarosa wrinkled skin measuring 1.9 x 0.9 x 0.1 cm. The deep margin isinked black. The specimen is sectioned to reveal a pink-delarosa fibrofatty cut surface. Specimen is entirely submitted in cassette b1 C). the specimen is received in formalin labeled, "small back mole" and consists of an unoriented to pink-delarosa wrinkled to new segment of brown-delarosa skin measuring 0.8 x 0.4 x 0.4cm. The margin is inked black. The specimen is sectioned to reveal a pink-tanfibromembranous cut surface. The specimen is entirely submitted in cassette C1 KK Technical component excluding immunohistochemistry is performed at [facility], [address] [facility] [place] [address] Technical component of all immunohistochemistry is performed at [facility], [address] [place] [address], [address], [place] [address] Immunohistochemistry: This test was developed and its performance characteristicsdetermined by this laboratory. It has not been approved nor does it need approval by the USFDA. Appropriate positive and negative controls are reviewed and judged to be acceptable.This laboratory is certified under the Clinical Laboratory Improvement Amendments (CLIA-88)as qualified to perform high complexity clinical laboratory testing. Unless gross only, the diagnosis is based upon microscopic examination. MICROSCOPIC DESCRIPTION A-C)Microscopic examination supports the pathologic diagnosis. CLINICAL INFORMATION COLLECTION DATE: 12/24/2021RE-OP DIAGNOSIS: NECK MASS / BACK MOLE ------ Signed SIGNATURE ON FILE [place] 12/27/21 1308 -- END OF REPORT COMPREHENSIVE METABOLIC [id number] 15:35:00* Test Item Value Reference Range Interpretation Comme nts SODIUM (test code = NA) 140 mmol/L 136-145 N POTASSIUM (test code = K) 4.2 mmol/L 3.5-5.1 N CHLORIDE (test code = CL) 110.0 mmol/L 98-107 H CARBON DIOXIDE (test code = CO2) 25.0 mmol/L 21-32 N ANION GAP (test code = GAP) 9.2 10-20 L GLUCOSE (test code = GLU) 94 mg/dL 74-106 N BLOOD UREA NITROGEN (test code = BUN) 16 mg/dL 7-18 N GLOMERULAR FILTRATION RATE (test code = GFR) > 60 mL/min See_Comment Estimated GFR by using Modified MDRD formula.Chronic kidney disease is defined as either kidney damageor GFR <60 mL/min/1.73 m2 for >3 months. [Automated message] The system which generated this result transmitted reference range: >=60. The reference range was not used to interpret this result as normal/abnormal. CREATININE (test code = CREAT) 0.80 mg/dL 0.55-1.02 N Note change in reference range due to change in reagent. BUN/CREATININE RATIO (test code = BUN/CREA) 20.5 10-20 H TOTAL PROTEIN (test code = PROT) 6.8 gram/dL 6.4-8.2 N ALBUMIN (test code = ALB) 3.9 g/dL 3.4-5.0 N GLOBULIN (test code = GLOB) 2.9 gram/dL 2.7-4.2 N ALBUMIN/GLOBULIN RATIO (test code = A/G) 1.3 0.75-1.50 N CALCIUM (test code = CA) 9.0 mg/dL 8.5-10.1 N BILIRUBIN TOTAL (test code = BILT) 0.60 mg/dL 0.0-1.0 N SGOT/AST (test code = AST) 24 IUnit/L 15-37 N SGPT/ALT (test code = ALT) 19 IUnit/L 12-78 N ALKALINE PHOSPHATASE TOTAL (test code = ALKP) 74 IUnit/L 45-117 N Note change in reference range due to change in reagent. CBC W/AUTO [id number] 15:15:00* Test Item Value Reference Range Interpretation Comme nts WHITE BLOOD CELL (test code = WBC) 8.1 K/mm3 4.5-12.5 N RED BLOOD CELL (test code = RBC) 4.44 mill/mm3 3.7-5.2 N HEMOGLOBIN (test code = HGB) 13.6 gram/dL 11.5-15.5 N HEMATOCRIT (test code = HCT) 42.0 % 36.0-46.0 N MEAN CELL VOLUME (test code = MCV) 94.6 fL 80-98 N MEAN CELL HGB (test code = MCH) 30.6 picogram 27.0-33.0 N MEAN CELL HGB CONCETRATION (test code = MCHC) 32.4 gram/dL 33.0-36.0 L RED CELL DISTRIBUTION WIDTH (test code = RDW) 15.0 % 11.6-16.2 N RED CELL DISTRIBUTION WIDTH SD (test code = RDW-SD) 52.4 fL 37.0-51.0 H PLATELET COUNT (test code = PLT) 281 K/mm3 150-450 N MEAN PLATELET VOLUME (test c ode = MPV) 9.4 fL 6.7-11.0 N NEUTROPHIL % (test code = NT%) 62.6 % 39.0-69.0 N IMMATURE GRANULOCYTE % (test code = IG%) 0.1 % 0.0-5.0 N LYMPHOCYTE % (test code = LY%) 26.9 % 25.0-55.0 N MONOCYTE % (test code = MO%) 7.1 % 0.0-10.0 N EOSINOPHIL % (test code = EO%) 2.6 % 0.0-5.0 N BASOPHIL % (test code = BA%) 0.7 % 0.0-1.0 N NUCLEATED RBC % (test code = NRBC%) 0.0 % 0-0 N NEUTROPHIL # (test code = NT#) 5.04 K/mm3 1.8-7.7 N IMMATURE GRANULOCYTE # (test code = IG#) 0.01 x10 3/uL 0-0.03 N LYMPHOCYTE # (test code = LY#) 2.17 K/mm3 1.0-5.0 N MONOCYTE # (test code = MO#) 0.57 K/mm3 0-0.8 N EOSINOPHIL # (test code = EO#) 0.21 K/mm3 0.0-0.5 N BASOPHIL # (test code = BA#) 0.06 K/mm3 0.0-0.2 N NUCLEATED RBC # (test code = NRBC#) 0.00 K/mm3 0.0-0.1 N XR WRIST COMP MIN 3 [id number] 19:05:20PROCEDURE INFORMATION:Exam: XR Left WristExam date and time: 10/31/2019 6:43 PMAge: 54 years oldClinical indication: Pain and injury or trauma; Fall; Late effect from previousinjury; Patient fell out of the shower on 10-28-2019. ; Wrist; Left; Injury date:10/28/2019; Additional info: Patient fell out of the shower and injured leftwrist on 10-28-2019.TECHNIQUE:Imaging protocol: XR Left wrist.Views: 3 or more views.COMPARISON:No relevant prior studies available.FINDINGS:Bones/joints: Impacted transverse fracture through the distal left radialmetaphysis 13 mm proximal to the distal articular surface,not intra-articular.The impaction is primarily along the dorsal cortex. There is some earlyperiosteal new bone formation. The ulna appears intact. Carpal bones appearintact.Soft tissues: Unremarkable.IMPRESSION:Very early healing of a distal left radial metaphyseal fracture, apparently notintra-articular.This Final report was electronically signed by Misael Lynn MD on 7:05 PM CDT.Dictated By: MISAEL LYNNDate: 10/31/2019 19:05[facility] OF FLUSHINGXR WRIST COMP MIN 3 [id number] 09:06:29Procedure: XR WRIST COMP MIN 3 VWSOrder Date: 10/27/2019 7:52 AMOrdering Provider: SHAHLA Callejasinical Indication: Left wrist pain after fallComparison: NoneFINDINGS:Distal ulna is cortically intact. Hairline fracture of the distal radialmetaphysis compatible with a nondisplaced Colles' type f racture.The carpal bones have a normal appearance.The articular surfaces in the wrist and visualized portions of the hand arenormal.No lytic or sclerotic lesions.IMPRESSION:1. Nondisplaced Colles' type fracture of the distal left radial metaphysis. Nodefinite extension to the articular surface. No s ubluxation.This final report was electronically signed by Dr Saturnino Mcnair MD 10/27/20199:00 AMDictated By: SATURNINO MCNAIRDate: 10/27/2019 09:00[facility]CULT[facility] [place] [id number] 06:26:00ER 18Specimen: BloodCollected: 03/17/2019 23:32 Status: Final Last Updated: 03/23/2019 06:26 (1) ER 18 Culture Result (Final) (Final) No [facility], [id number] 06:26:00ER 18Specimen: BloodCollected: 03/17/2019 23:32 Status: Final Last Updated: 03/23/2019 06:26 (1) ER 18 Culture Result (Final) (Final) No [facility]LOOD 2019-03-23 06:26:00ER 18Specimen: BloodCollected: 03/17/2019 23:30 Status: Final Last Updated: 03/23/2019 06:26 (1) ER 18 Culture Result (Final) (Final) No Growth [facility] BLOOD 2019-03-23 06:26:00ER 18Specimen: BloodCollected: 03/17/2019 23:30 Status: Final Last Updated: 03/23/2019 06:26 (1) ER 18 Culture Result (Final) (Final) No Growth After [facility]Psych[facility] CHEST AP/PA 1 [id number] 06:54:31ER 18Procedure: XR CHEST AP/PA 1 VIEWOrder Date: 03/17/2019 11:09 PMOrdering Provider: YESSENIA Savageinical Indication: [id number]: FeverComparison: NoneFindings:Neurostimulator leads are present.Lungs are clear. Heart size is within normal limits. No acute osseousabnormality.Impression:No acute pulmonary process.This final report was electronically signed by Dr Ros Connor MD 03/18/20196:48 AMDictated By: LUKE CONNORKDate: 03/18/2019 06:48[facility] OF FLUSHINGCT ABDOMEN/PELVIS W/[id number] 02:40:48NPO 4 hours. Do not withhold medsEXAM:CT Abdomen and Pelvis With ContrastEXAM DATE/TIME:03/18/2019 12:20 AMCLINICAL HISTORY:53 years old, female; Fever and nausea and other: Diarrhea; Abdominal pain;Epigastric; Patient HX: Cholecystectomy, neurostimulator, back surg, biopsy ofuterusTECHNIQUE:Imaging protocol: Axial computed tomography images of the abdomen and pelviswith intravenous contrast. Coronal and sagittal reformatted images were createdand reviewed.Radiation optimization: All CT scans at this facility use at least one of thesedose optimization techniques: automated exposure control; mA and/or kVadjustment per patient size (includes targeted exams where dose is matched toclinical indication); or iterative reconstruction.Contrast material: ISOVUE 300;Contrast volume: 80 ml;Contrast route: IV;COMPARISON:No relevant prior studies available.FINDINGS:Tubes, catheters and devices: Left buttock generator for intrathecalneuralstimulator.Lungs: No consolidations in the lung bases.Liver: No liver masses.Gallbladder and bile ducts: Surgical changes of cholecystectomy. No ductaldilation.Pancreas: No pancreatic mass or ductal dilation.Spleen: No splenic masses.Adrenals: Right adrenal gland round 2.8 cm hypodense mass. No left adrenalgland mass.Kidneys and ureters: No enhancing mass or hydronephrosis.Stomach and bowel: No evidence of obstruction or bowel wall thickening.Appendix: Normal appendix.Intraperitoneal space: No free air or free fluid.Vasculature: No abdominal aortic aneurysm.Lymph nodes: No lymphadenopath y.Bladder: Normal bladder.Reproductive: Normal appearance of the uterus and adnexa.Bones/joints: Degenerative changes of the lumbar spine. Grade 1 anterolisthesisof L4 with respect to L5. No suspicious bone lesions.Soft tissues: No acute findings.IMPRESSION:1. No acute findings in the abdomen or pel vis.2. Right adrenal gland 2.8 cm round hypodense mass. If no prior images areavailable for comparison, a CT or MRI of the adrenal glands with and without IVcontrast is recommended for further characterization. (Humphrey Ball, ACR HarvinderPamaximilian, 2017)This Final report was electronically signed by Austyn Michele MD on 2:40 AM CDT.Dictated By: AUSTYN MICHELE: 03/18/2019 02:40[facility] OF FLUSHINGHEPATIC FUNCTION PANEL (LIVER)2019-03-18 00:16:00* Test Item Value Reference Range Interpretation Comme nts T Protein (test code = TP) 7.5 gm/dl 6.4-8.2 Albumin (test code = ALB) 3.6 gm/dl 3.4-5.0 AST (SGOT) (test code = AST) 15 U/L 15-37 ALT (SGPT) (test code = ALT) 19 U/L 13-61 Alkaline Phos (test code = ALKP) 96 U/L 45-117 Total Bilirubin (test code = TBIL) 0.6 mg/dl 0.2-1.0 Direct Bilirubin (test code = DBIL) 0.2 mg/dl 0.0-0.3 Indirect Bilirubin (test cod e = IBIL) 0.4 mg/dl 0.0-1.1 [facility] WITH [id number] 23:57:00* Test Item Value Reference Range Interpretation Comme nts Color (test code = UCOLR) YELLOW Clarity (test code = UCLAR) SL CLOUDY Glucose (test code = UGLUC) NEGATIVE NEGATIVE N Bilirubin (test code = UBILI) NEGATIVE NEGATIVE N Ketones (test code = UKET) NEGATIVE NEGATIVE N Specific Franklin (test code = USPGR) 1.025 1.005-1.030 A Blood (test code = UBLD) NEGATIVE NEGATIVE N PH (test code = UPH) 6.0 4.5-8.0 A Protein (test code = UPROT) TRACE NEGATIVE A Urobilinogen (test code = U UROB) 0.2 >0.2 N Nitrite (test code = UNITR) NEGATIVE NEGATIVE N Leukocyte Esterase (test cod e = ULEUK) NEGATIVE NEGATIVE N WBC (test code = WBCUR) 0-5 0-5 N RBC (test code = RBCUR) 0-1 0-5 A Epithial Cells (test code = U EPI) 60-75 0-10 A Mucous (test code = UMUC) Moderate None Seen A Bacteria (test code = UBACT) 1+ None Seen,Trace A ER [address] [place] [address] LAB CHEM [id number] 23:46:00* Test Item Value Reference Range Interpretation Comme nts Sodium (test code = NA) 138 mmol/l 138-146 Potassium (test code = K) 3.5 mmol/l 3.5-4.9 Chloride (test code = CL) 104 mmol/l 98-109 IONIZED CALCIUM (test code = ICA) 1.12 CO2 (test code = CO2) 25 mmol/l 24-29 Glucose (test code = GLU) 95 mg/dl 70-105 BUN (test code = BUN) 14 mg/dl 6-17 Creatinine (test code = CREA) 0.8 mg/dl 0.6-1.[address] LAB LACTIC [id number] 23:44:00* Test Item Value Reference Range Interpretation Comme nts LACTATE (test code = LAC) 0.90 mmol/l 0.90-1.70 [address]LufkinSTAT LAB CBC WITH AUTO [id number] 23:42:00* Test Item Value Reference Range Interpretation Comme nts WBC (test code = WBC) 9.72 10\\S\\3/ul 4.80-10.80 RBC (test code = RBC) 4.65 10\\S\\6/ul 4.20-5.40 Hemoglobin (test code = HGB) 13.4 gm/dl 12.0-14.0 Hematocrit (test code = HCT) 41.3 % 37.0-47.0 MCV (test code = MCV) 88.8 fL 81.0-99.0 MCH (test code = MCH) 28.8 pg 27.0-31.0 MCHC (test code = MCHC) 32.4 gm/dl 33.0-37.0 L Platelet (test code = PLT) 249 10\\S\\3/ul 130-400 RDW (test code = RDWVC) 14.7 % 11.5-14.5 H MPV (test code = MPV) 9.4 fL 7.4-10.4 A NE% (test code = NE) 84.1 % 42.0-75.0 H LY% (test code = LY) 8.1 % 13.0-42.0 L MO% (test code = MO) 6.4 % 4.0-14.0 EO% (test code = EO) 0.8 % 1.0-3.0 L BA% (test code = BA) 0.2 % 1.0-3.0 L IG% (test code = IG%) 0.4 % 0.0-0.[address]-[place]URINALYS[place] WITH [id number] 22:55:00* Test Item Value Reference Range Interpretation Comme nts Color (test code = UCOLR) YELLOW Clarity (test code = UCLAR) SL CLOUDY Glucose (test code = UGLUC) NEGATIVE NEGATIVE N Bilirubin (test code = UBILI) SMALL NEGATIVE A Ketones (test code = UKET) TRACE NEGATIVE A Specific Franklin (test code = USPGR) >=1.030 1.005-1.030 A Blood (test code = UBLD) NEGATIVE NEGATIVE N PH (test code = UPH) 5.5 4.5-8.0 A Protein (test code = UPROT) TRACE NEGATIVE A Urobilinogen (test code = U UROB) 1.0 >0.2 A Nitrite (test code = UNITR) NEGATIVE NEGATIVE N Leukocyte Esterase (test code = ULEUK) NEGATIVE NEGATIVE N WBC (test code = WBCUR) 0-5 0-5 N RBC (test code = RBCUR) None Seen 0-5 A Epithial Cells (test code = U EPI) TNTC 0-10 A Mucous (test code = UMUC) Large None Seen A Bacteria (test code = UBACT) Trace None Seen,Trace N Urine Casts (test code = UR CAST) Rare Hyaline Cast None Seen A [facility] Notes Date/Time Note Provider Source 2022-09-29 17:18:00 [id number]+qjSN DyEqIZvJFqleRYTbge8TWo61o6z5856-17-98J52:18:23477 9-0017 [facility] PATIENT NAME: BUTCH ROCHA ADMIT DATE: 09/29/22ACCOUNT NO: [id number] ROOM NO: AGE: 57 REPORT TYPE: eNVL VENOUS ULTRASOUND SEX: F DATE OF : 65ADMITTING PHYSICIAN: ATTENDING PHYSICIAN:José Miguel Padilla MD *[facility]*[address] [place] [address] Lower Extremity Venous Duplex Evaluation Patient: Butch Rochaudmyesha Date: 09/29/2022 BP: [id number] 1965 Age: 57 Height: / Gender: F Weight: /BMI/BSA: / *Ordering Physician: * José Miguel PadillaInterpreting Physician: * Izaiah Marcum MD*Style Advisor: * Darline Reyes RVT Indications: Swelling of limb. Pain. Study data: Lower extremity venous duplex evaluation. Bilateralevaluation with grayscale 2D imaging, color Doppler imaging, andspectral Doppler analysis. Location: Vascular laboratory. Patientstatus: Outpatient. Study status: Stat. Venous flow and imaging: + + +------- ---+ +*Location *Properties *Thrombus *Comments *+ + +------ ----+ +*R CFV *Phasic; spontaneous; normal * * *augmentation; compressible * * *+ + +------ ----+ +*R GSV *Spontaneous; compressible * * *+ +----- + + ----+*R DFV *Phasic; spontaneous; normal * * *augmentation; compressible * * *+ + +------ ----+ + PATIENT NAME: BUTCH ROCHA *R FV *Phasic; spontaneous; normal * * *augmentation; compressible * * *+ + +------ ----+ +*R popliteal*Phasic; spontaneous; normal * * *augmentation; compressible * * *+ + +------ ----+ +*R PTV/PEROV*Phasic; spontaneous; normal * * *augmentation; compressible * * *+ + +------ ----+ +*L CFV *Phasic; spontaneous; normal * * *augmentation; compressible * * *+ + +------ ----+ +*L GSV *Phasic; spontaneous; normal * * *augmentation; compressible * * *+ + +------ ----+ +*L DFV *Phasic; spontaneous; normal * * *augmentation; compressible * * *+ + +------ ----+ +*L FV *Phasic; spontaneous; normal * * *augmentation; compressible * * *+ + +------ ----+ +*L popliteal*Phasic; spontaneous; no *Visualized* *augmentation; partially * * *compressible * * *+ + +------ ----+ +*L PTV/PEROV*Phasic; spontaneous; normal * *POORLY VISUALIZED. *augmentation; compressible * * *+ + +------ ----+ + Conclusions 1. There is no evidence of acute deep or superficial venous thrombosis noted in the right lower extremity.2. Study suggests acute deep vein thrombosis noted in the left popliteal vein. Prepared and electronically signed by Izaiah Marcum MD09/29/2022 17:18 at 1718 PATIENT NAME: BUTCH ROCHA [id number]:18:00V.[id number] ilable for patient hxosASSEEFNNNTKTAH6289-92-13Q51:19:13 [facility] 2022-09-29 15:47:00 [id number] ob7WkIYK53uHxLMlQCL3thlXgubhx 8sVZjaQOmNRBlw/cIVSdmUKlXE87479-94-02G07:47:36826 0-0005 [facility] PATIENT NAME: BUTCH ROCHA ADMIT DATE: 09/16/22ACCOUNT NO: [id number] ROOM NO: V.3039 AGE: 57 REPORT TYPE: DISCHARGE SUMMARY REPORT SEX: F DATE OF : 65ADMITTING PHYSICIAN:José Miguel Padilla MD ATTENDING PHYSICIAN:José Miguel Padilla MD ADMISSION DATE: 09/16/2022 16:26:00DISCHARGE DATE: 09/22/2022 16:57:00 FINAL DIAGNOSES: Morbid obesity with gastroesophageal reflux disease. HOSPITAL COURSE: This patient is a 57-year-old female with history of morbid obesity with BMI of 60 and severe reflux with hiatal hernia. She underwent robotic repair of hiatal hernia with gastropexy and sleeve gastrectomy. Postoperative recovery was significant for dysphagia. The patient underwent upper GI endoscopy, which showed no obstruction, but there was some small oozingfrom the mid gastric staple line, which was controlled by endoscopic laser cauterization. Postoperatively, the patient was placed on Protonix and Carafate. She is able to tolerate liquid diet, ambulated well prior to being discharged home with followup instruction in 1 week. Dictated By: José Miguel Padilla MD Date Dictated: 09/29/2022 15:47:34Date Transcribed: 09/29/2022 21:05:15DIONICIO/ELOISE/JANNA/Sigifredo #: [id number] ID: [id number] by José Miguel Padilla MD On 10/04/2022 09:26:21 AM at 0926 PATIENT NAME: BUTCH ROCHA [id number]:05:00V.[id number] ilable for patient ysreHLVPOIOUZUJUHQ9478-92-05D35:27:04 [facility] 2022-09-22 12:09:00 [id number] amgl8/14QGVoBHd6oeyz7YUY3FYA3 f1vl9aM62NT9pv97cALpqvhIM6/9891-05-01M77:09:00 [facility] CenterHospitalist Progress NoteREPORT#:[id number] REPORT STATUS: SignedDATE:09/22/22 TIME: 1209 PATIENT: BUTCH ROCHA UNIT #: [id number]#: [id number] [address] [birth year] AGE: 57 SEX: F ATTEND: José Miguel Padilla MDA AUTHOR: Mayda Vo [employer] WORKER * ALL edits or amendments must be made on the electronic/computer document * Mayda Vo 09/22/22 1209:SubjectiveChief complaint:abd pain improving some, tolerating clears. Review of SystemsAll systems rev neg: except as marked Objective GeneralVS/I O:Vital Signs: Date Time Temp Pulse Resp B/P B/P Pulse O2 O2 Flow FiO2 Mean Ox Delivery Rate 09/22 1036 98.4 79 16 120/66 83.8 95 Nasal cannula 09/22 0900 Nasal 2 cannula 09/22 0836 95 Nasal 2 28 cannula 09/22 0735 98.1 82 16 117/78 91.2 94 Nasal cannula 09/22 0624 98.2 84 16 120/76 91.1 92 Room air 09/218 98.2 84 15 94/56 68.5 93 Nasal cannula 09/21 2002 98.2 72 15 102/65 77.7 89 Room air 02/01 1949 94 Nasal 2 28 cannula 09/21 1556 97.9 76 18 106/70 81.8 94 Nasal cannula 24 hour I O ending at 0700: 09/22 0700 09/21 1900 Intake Total 30 Output Total Balance 30 Intake, Oral 30 PATIENT WEIGHT: Weight (lb): 134Weight (oz): 10.93Weight (kg): 61.403208 Physical ExamGeneral appearance: alert, awake, oriented, conversational, no respiratory distressHead/Eyes: atraumatic, normocephalic, PERRLACardiovascular: normal capillary refill, regular rate rhythmRespiratory: aerating well, symmetric expansionAbdomen: tenderness, softExtremities: moves all, normal capillary refillNeuro/FUEL TANK SEALER AND TESTER: alert, oriented X 3Skin: dry, intact Diagnosis, Assessment PlanCode status: full codePlan discussed with: patient, collaborating MD, nurse Free Text DxA P NotesFree text DxA P notes:1. hypothyroidism- resume levothyroxine. 2. hypokalmia- replaced.3. mo4. s/p lap sleeve gastrectomy and hernia repair POD#6- improving spasms with clears, pain mgt as needed, hg stable, encouarged to ambulate as tolerated. s/p EGD which showed gastritis and cauterization. continue on ppi/sucralfate. 5. mild leukocytosis- resolved. likely reactive. afebrile.6. gi/dvt ppx- ppi/lovenox. full code. tolerating clears, pain improving. will continue to follow. Marco Anthony 09/22/22 2106:Attestations Physician AttestationAgree w/findings plan:Agree with the findings and plan as documented by NAINA Vo. at 1303 at 5249 RPT #:[id number] OF REPORTPRProgress [id number]:09:00V.[id number] able for patient wxziRIJFPKNOVBCUAT1033-42-69R48:03:31 [facility] 2022-09-21 18:09:00 [id number] DQiYBdGerqw8zv1J0QENCB3NY8+vQ jdg3SQOANDBmVlCnkP6FwtrCwHa7797-73-11F01:09:00 [facility] CenterGeneral Surgery Progress NoteREPORT#:[id number] REPORT STATUS: SignedDATE:09/21/22 TIME: 1808 PATIENT: BUTCH ROCHA UNIT #: [id number]#: [id number] ROOM[facility]BED[facility]ADOB: [birth year] AGE: 57 SEX: F ATTEND: José Miguel Padilla AUTHOR: José Miguel Padilla MD * ALL edits or amendments must be made on the electronic/computer document * SubjectivePatient reports:Yes: complaints (mild dysphagia), tolerating diet. Objective Physical ExamGeneral appearance: awakeAbdomen: soft ResultsFindings/Data:Laboratory Tests 09/21/22 0345:[Embedded Image Not Available]Laboratory Tests 09/21 034 Chemistry Sodium (136 - 145 mmol/L) 138 Potassium (3.5 - 5.1 mmol/L) 3.7 Chloride (98 - 107 mmol/L) 104.0 Carbon Dioxide (21 - 32 mmol/L) 29.0 Anion Gap (10 - 20) 8.7 L BUN (7 - 18 mg/dL) 8 Creatinine (0.55 - 1.02 mg/dL) 0.70 Glomerular Filtr Rate (>=60 mL/min) > 60 BUN/Creatinine Ratio (10 - 20) 11.4 Glucose (74 - 106 mg/dL) 86 Calcium (8.5 - 10.1 mg/dL) 8.1 L Laboratory Tests 09/21 034 Hematology WBC (4.5 - 12.5 K/mm3) 7.8 RBC (3.7 - 5.2 mill/mm3) 3.97 Hgb (11.5 - 15.5 gram/dL) 12.8 Hct (36.0 - 46.0 %) 38.7 MCV (80 - 98 fL) 97.5 MCH (27.0 - 33.0 picogram) 32.2 MCHC (33.0 - 36.0 gram/dL) 33.1 RDW (11.6 - 16.2 %) 15.2 RDW Std Deviation (37.0 - 51.0 fL) 55.3 H Plt Count (150 - 450 K/mm3) 202 MPV (6.7 - 11.0 fL) 9.6 Neut % (Auto) (39.0 - 69.0 %) 70.7 H Lymph % (Auto) (25.0 - 55.0 %) 17.5 L Geary % (Auto) (0.0 - 10.0 %) 8.6 Eos % (Auto) (0.0 - 5.0 %) 2.4 Baso % (Auto) (0.0 - 1.0 %) 0.5 Neut # (Auto) (1.8 - 7.7 K/mm3) 5.48 Lymph # (Auto) (1.0 - 5.0 K/mm3) 1.36 Geary # (Auto) (0 - 0.8 K/mm3) 0.67 Eos # (Auto) (0.0 - 0.5 K/mm3) 0.19 Baso # (Auto) (0.0 - 0.2 K/mm3) 0.04 Add Manual Diff NO Nucleated RBC % (0 - 0 %) 0.0 Nucleated RBCs # (Man) (0.0 - 0.1 K/mm3) 0.00 Diagnosis, Assessment PlanFree Text A P:Post sleeve gastritis on carafate and protonix at 1810 RPT #:[id number] OF REPORTPRProgress [id number]:09:00V.[id number] able for patient visgRRWQPFNQNQTVBG4231-22-42B20:11:11 [facility] 2022-09-21 13:16:00 [id number] I9JO/iS1CH59Inhrse5Y7y5E9nuDx gyK9Tw9C5rdacvnVedh4Ibr1RKp8545-96-79I80:16:00 [facility] ([facility])Hospitalist Progress NoteREPORT#:[id number] REPORT STATUS: SignedDATE:09/21/22 TIME: 1316 PATIENT: MOWLES,BUTCH ZACH UNIT #: [id number]#: [id number] [address] AGE: 57 SEX: F ATTEND: José Miguel Padilla [facility]DM AUTHOR: Mayda Vo HOME HE[employer] CARE SOCIAL WORKER * ALL edits or amendments must be made on the electronic/computer document * Mayda Vo 09/21/22 1316:SubjectiveChief complaint:reports abd pain is improving some. Review of SystemsAll systems rev neg: except as marked Objective GeneralVS/I O:Vital Signs: Date Time Temp Pulse Resp B/P B/P Pulse O2 O2 Flow FiO2 Mean Ox Delivery Rate 09/21 1057 98.4 74 18 113/75 87.8 90 Nasal cannula 09/21 0817 94 Nasal 2 28 cannula 09/21 0746 Nasal 2 86 cannula 09/21 0743 98.4 75 18 106/69 81.0 94 Room air 09/21 0536 98.7 86 18 111/75 87 96 Nasal 3 cannula 09/21 0447 98.2 78 15 82/57 65.6 91 Nasal cannula 09/20 2357 98.1 82 15 92/55 67.1 94 Nasal cannula 09/20 2038 99.3 89 15 100/67 77.9 95 Nasal cannula 09/20 2000 Nasal 2 cannula 09/20 1958 88 Nasal 2 28 cannula 09/20 1544 98.4 78 18 93/64 73.5 90 Room air 24 hour I O ending at 0700: 09/21 0700 09/20 1900 Intake Total 600 Output Total Balance 600 Intake, Oral 600 Patient 61.091 kg Weight PATIENT WEIGHT: Weight (lb): 134Weight (oz): 10.93Weight (kg): 61.130689 Physical ExamGeneral appearance: alert, awake, oriented, conversational, no respiratory distressHead/Eyes: atraumatic, normocephalic, PERRLACardiovascular: normal capillary refill, regular rate rhythmRespiratory: aerating well, symmetric expansionAbdomen: tenderness, softExtremities: moves all, normal capillary refillNeuro/FUEL TANK SEALER AND TESTER: alert, oriented X 3Skin: dry, intact ResultsFindings/Data:Laboratory Tests 02/01 0345 Chemistry Sodium (136 - 145 mmol/L) 138 Potassium (3.5 - 5.1 mmol/L) 3.7 Chloride (98 - 107 mmol/L) 104.0 Carbon Dioxide (21 - 32 mmol/L) 29.0 Anion Gap (10 - 20) 8.7 L BUN (7 - 18 mg/dL) 8 Creatinine (0.55 - 1.02 mg/dL) 0.70 Glomerular Filtr Rate (>=60 mL/min) > 60 BUN/Creatinine Ratio (10 - 20) 11.4 Glucose (74 - 106 mg/dL) 86 Calcium (8.5 - 10.1 mg/dL) 8.1 L Laboratory Tests 09/21 344 Hematology WBC (4.5 - 12.5 K/mm3) 7.8 RBC (3.7 - 5.2 mill/mm3) 3.97 Hgb (11.5 - 15.5 gram/dL) 12.8 Hct (36.0 - 46.0 %) 38.7 MCV (80 - 98 fL) 97.5 MCH (27.0 - 33.0 picogram) 32.2 MCHC (33.0 - 36.0 gram/dL) 33.1 RDW (11.6 - 16.2 %) 15.2 RDW Std Deviation (37.0 - 51.0 fL) 55.3 H Plt Count (150 - 450 K/mm3) 202 MPV (6.7 - 11.0 fL) 9.6 Neut % (Auto) (39.0 - 69.0 %) 70.7 H Lymph % (Auto) (25.0 - 55.0 %) 17.5 L Geary % (Auto) (0.0 - 10.0 %) 8.6 Eos % (Auto) (0.0 - 5.0 %) 2.4 Baso % (Auto) (0.0 - 1.0 %) 0.5 Neut # (Auto) (1.8 - 7.7 K/mm3) 5.48 Lymph # (Auto) (1.0 - 5.0 K/mm3) 1.36 Geary # (Auto) (0 - 0.8 K/mm3) 0.67 Eos # (Auto) (0.0 - 0.5 K/mm3) 0.19 Baso # (Auto) (0.0 - 0.2 K/mm3) 0.04 Add Manual Diff NO Nucleated RBC % (0 - 0 %) 0.0 Nucleated RBCs # (Man) (0.0 - 0.1 K/mm3) 0.00 Diagnosis, Assessment PlanCode status: full codePlan discussed with: patient, collaborating MD, nurse Free Text DxA P NotesFree text DxA P notes:1. hypothyroidism- resume levothyroxine. 2. hypokalmia- replaced.3. mo4. s/p lap sleeve gastrectomy and hernia repair POD#5- improving spasms with clears, pain mgt as needed, hg stable, encouarged to ambulate as tolerated. s/p EGD which showed gastritis and cauterization.5. mild leukocytosis- resolved. likely reactive. afebrile.6. gi/dvt ppx- ppi/lovenox. full code. plan- continue on clears, ppi/sucralfate, pain improving some. Marco Anthony 09/21/22 1855:Attestations Physician AttestationAgree w/findings plan:Agree with the findings and plan as documented by NAINA Vo. at 1742 at 1858 RPT #:[id number] OF REPORTPRProgress [id number]:16:00V.[id number] able for patient [id number]:42:46 [facility] 2022-09-20 12:34:00 [id number] qql5ZojT4TA2wPT1wHvtS6ZldkDgl 1j58BZdfyI9iFHZIS0zgLL4eZ9a6042-62-83D59:34:00 [facility] Progress NoteREPORT#:[id number] REPORT STATUS: SignedDATE:09/20/22 TIME: 1234 PATIENT: BUTCH RCOHA UNIT #: [id number]#: [id number] ROOM/BED: [address]: [address] AGE: 57 SEX: F ATTEND: José Miguel Padilla MDADM AUTHOR: José Miguel Padilla MD * ALL edits or amendments must be made on the electronic/computer document * SubjectivePatient reports:Yes: tolerating diet (mild dysphagia improving). Objective GeneralVS/I O:Last Documented: Result Date Time Pulse Ox 96 09/20 1215 FiO2 28 09/20 1215 O2 Delivery Nasal cannula 09/20 1215 O2 Flow Rate 2 09/20 1215 B/P 106/67 09/20 1107 B/P Mean 80.3 09/20 1107 Temp 98.2 09/20 1107 Pulse 75 09/20 1107 Resp 18 09/20 1107 Vital Signs Date Temp Pulse Resp B/P B/P Mean Pulse Ox FiO2 09/19-09/20 97.4-99.0 75-94 16-28 99-106/53-67 0.0-80.3 90-99 28 24 hour I O ending at 0700: 09/20 0700 09/19 1900 Intake Total 600 50.00 Output Total Balance 600 50.00 Intake, IV 50.00 Intake, Oral 600 PATIENT WEIGHT: Weight (lb): 134Weight (oz): 10.93Weight (kg): 61.903235 Physical ExamGeneral appearance: awakeAbdomen: soft ResultsFindings/Data:Laboratory Tests 09/20/22438:[Embedded Image Not Available]Laboratory Tests 09/20 438 Chemistry Sodium (136 - 145 mmol/L) 139 Potassium (3.5 - 5.1 mmol/L) 3.8 Chloride (98 - 107 mmol/L) 106.0 Carbon Dioxide (21 - 32 mmol/L) 31.0 Anion Gap (10 - 20) 5.8 L BUN (7 - 18 mg/dL) 9 Creatinine (0.55 - 1.02 mg/dL) 0.60 Glomerular Filtr Rate (>=60 mL/min) > 60 BUN/Creatinine Ratio (10 - 20) 13.8 Glucose (74 - 106 mg/dL) 85 Calcium (8.5 - 10.1 mg/dL) 7.9 L Laboratory Tests 09/20 438 Hematology WBC (4.5 - 12.5 K/mm3) 7.7 RBC (3.7 - 5.2 mill/mm3) 3.88 Hgb (11.5 - 15.5 gram/dL) 12.4 Hct (36.0 - 46.0 %) 38.1 MCV (80 - 98 fL) 98.2 H MCH (27.0 - 33.0 picogram) 32.0 MCHC (33.0 - 36.0 gram/dL) 32.5 L RDW (11.6 - 16.2 %) 15.5 RDW Std Deviation (37.0 - 51.0 fL) 55.8 H Plt Count (150 - 450 K/mm3) 178 MPV (6.7 - 11.0 fL) 9.5 Neut % (Auto) (39.0 - 69.0 %) 72.5 H Lymph % (Auto) (25.0 - 55.0 %) 15.8 L Geary % (Auto) (0.0 - 10.0 %) 9.1 Eos % (Auto) (0.0 - 5.0 %) 1.9 Baso % (Auto) (0.0 - 1.0 %) 0.4 Neut # (Auto) (1.8 - 7.7 K/mm3) 5.58 Lymph # (Auto) (1.0 - 5.0 K/mm3) 1.22 Geary # (Auto) (0 - 0.8 K/mm3) 0.70 Eos # (Auto) (0.0 - 0.5 K/mm3) 0.15 Baso # (Auto) (0.0 - 0.2 K/mm3) 0.03 Nucleated RBC % (0 - 0 %) 0.0 Nucleated RBCs # (Man) (0.0 - 0.1 K/mm3) 0.00 Diagnosis, Assessment PlanFree Text A P:Diet as tolerated; PPI and carafate for gastritis seen on EGD at 1235 RPT #:[id number] OF REPORTPRProgress jrbl2546-15-12P75:34:00V.UWVL00323527-3814SSVhmpj able for patient bcrpNSMOPKCKFKFHZR3808-10-43D67:35:44 [facility] 2022-09-20 12:29:00 [id number] aI9mr786llNOEKwMW3JZLUCA/spgW pZDVJlfYhhKCQDsgT4nDZtj7Hfl9667-73-46F07:29:00 [facility] CenterHospitalist Progress NoteREPORT#:[id number] REPORT STATUS: SignedDATE:09/20/22 TIME: 1229 PATIENT: BUTCH ROCHA UNIT #: [id number]#: [id number] ROOM/BED: [facility]-ADOB: [birth year] AGE: 57 SEX: F ATTEND: José Miguel Padilla [facility] AUTHOR: Mayda Vo [employer] SOCIAL WORKER * ALL edits or amendments must be made on the electronic/computer document * Mayda Vo 09/20/22 1229:SubjectiveChief complaint:s/p EGD yesterday Review of SystemsAll systems rev neg: except as marked Objective GeneralVS/I O:Vital Signs: Date Time Temp Pulse Resp B/P B/P Pulse O2 O2 Flow FiO2 Mean Ox Delivery Rate 09/20 1215 96 Nasal 2 28 cannula 09/20 1107 98.2 75 18 106/67 80.3 95 Nasal cannula 09/20 0757 98.1 87 18 101/62 74.8 90 Room air 09/20 0423 98.2 76 16 100/62 0.0 93 Room air 09/19 2323 99.0 83 16 101/64 76.2 96 Nasal cannula 09/19 2300 Nasal 2 cannula 09/194 97 Nasal 2 28 cannula 09/19 2010 97.9 80 17 103/62 75.7 95 Nasal cannula 09/19 1759 97.4 87 20 102/60 95 Nasal 2 cannula 09/19 1747 Simple 8 mask 09/19 1745 90 28 105/64 95 Nasal 2 cannula 09/19 1737 97.4 94 24 100/53 99 Simple 8 mask 09/19 1530 98.4 91 18 99/65 76.4 92 Room air 24 hour I O ending at 0700: 09/20 0700 09/19 1900 Intake Total 600 50.00 Output Total Balance 600 50.00 Intake, IV 50.00 Intake, Oral 600 PATIENT WEIGHT: Weight (lb): 134Weight (oz): 10.93Weight (kg): 61.410789 Physical ExamGeneral appearance: alert, awake, oriented, conversational, no respiratory distressHead/Eyes: atraumatic, normocephalic, PERRLACardiovascular: normal capillary refill, regular rate rhythmRespiratory: aerating well, symmetric expansionAbdomen: tenderness, softExtremities: moves all, normal capillary refillNeuro/FUEL TANK SEALER AND TESTER: alert, oriented X 3Skin: dry, intact ResultsFindings/Data:Laboratory Tests 09/20 438 Chemistry Sodium (136 - 145 mmol/L) 139 Potassium (3.5 - 5.1 mmol/L) 3.8 Chloride (98 - 107 mmol/L) 106.0 Carbon Dioxide (21 - 32 mmol/L) 31.0 Anion Gap (10 - 20) 5.8 L BUN (7 - 18 mg/dL) 9 Creatinine (0.55 - 1.02 mg/dL) 0.60 Glomerular Filtr Rate (>=60 mL/min) > 60 BUN/Creatinine Ratio (10 - 20) 13.8 Glucose (74 - 106 mg/dL) 85 Calcium (8.5 - 10.1 mg/dL) 7.9 L Laboratory Tests 09/20 438 Hematology WBC (4.5 - 12.5 K/mm3) 7.7 RBC (3.7 - 5.2 mill/mm3) 3.88 Hgb (11.5 - 15.5 gram/dL) 12.4 Hct (36.0 - 46.0 %) 38.1 MCV (80 - 98 fL) 98.2 H MCH (27.0 - 33.0 picogram) 32.0 MCHC (33.0 - 36.0 gram/dL) 32.5 L RDW (11.6 - 16.2 %) 15.5 RDW Std Deviation (37.0 - 51.0 fL) 55.8 H Plt Count (150 - 450 K/mm3) 178 MPV (6.7 - 11.0 fL) 9.5 Neut % (Auto) (39.0 - 69.0 %) 72.5 H Lymph % (Auto) (25.0 - 55.0 %) 15.8 L Geary % (Auto) (0.0 - 10.0 %) 9.1 Eos % (Auto) (0.0 - 5.0 %) 1.9 Baso % (Auto) (0.0 - 1.0 %) 0.4 Neut # (Auto) (1.8 - 7.7 K/mm3) 5.58 Lymph # (Auto) (1.0 - 5.0 K/mm3) 1.22 Geary # (Auto) (0 - 0.8 K/mm3) 0.70 Eos # (Auto) (0.0 - 0.5 K/mm3) 0.15 Baso # (Auto) (0.0 - 0.2 K/mm3) 0.03 Nucleated RBC % (0 - 0 %) 0.0 Nucleated RBCs # (Man) (0.0 - 0.1 K/mm3) 0.00 Diagnosis, Assessment PlanCode status: full codePlan discussed with: patient, collaborating MD, nurse Free Text DxA P NotesFree text DxA P notes:1. hypothyroidism- resume levothyroxine. 2. hypokalmia- improved, 3.7 today.3. mo4. s/p lap sleeve gastrectomy and hernia repair POD#4- improving spasms with clears, pain mgt as needed, hg stable, encouarged to ambulate as tolerated. s/p EGD yestreday with cauterization.5. mild leukocytosis- resolved. likely reactive. afebrile.6. gi/dvt ppx- ppi/lovenox. full code. plan- continue clears, added sucralfate and protonix post EGD with cauterizationyesterday. Marco Anthony 09/21/22 0915:Attestations Physician AttestationAgree w/findings plan:Agree with the findings and plan as documented by NAINA Vo. at 1438 at 0923 RPT #:[id number] OF REPORTPRProgress rhfa3037-59-40V05:29:00V.VWVM15861194-1912FDMqxdk able for patient qmfuZXTMSQUFPSQYTH9490-84-12Y07:50:40 [facility] 2022-09-19 18:00:00 [id number] r13upZxoC26ggss67X2lKfSnOZwVQ Ob/F0cftdLoP6Ijy00FrpekurfO6177-12-99Z99:00:00 [facility] CenterPost Anesthesia EvaluationREPORT#:[id number] REPORT STATUS: SignedDATE:09/19/22 TIME: 1800 PATIENT: BUTCH ROCHA UNIT #: [id number]#: [id number] ROOM/BED: [facility]-ADOB: [birth year] AGE: 57 SEX: F ATTEND: José Miguel Padilla [facility] AUTHOR: Issac Swanson MD * ALL edits or amendments must be made on the electronic/computer document * Post Anesthesia Evaluation Anes. changes from pre-op evalORM Surgeries: Surgery Date and Time: 09/19/2022 1630 Primary Procedure: ESOPHAGOGASTRODUODENOSCOPY WITH BLEED Anesthetic: TIVADate: 09/19/22Level of consciousness: patient awake, able to answer questions, participate in this eval.Vital signs:Last Documented: Result Date Time O2 Delivery Simple mask 09/19 174 O2 Flow Rate 8 09/19 1747 Pulse Ox 95 09/19 1745 B/P 105/64 09/19 1745 Pulse 90 09/19 1745 Resp 28 09/19 1745 Temp 36.3 09/19 1737 B/P Mean 76.4 09/19 1530 FiO2 28 09/19 0952 Cardiovascular: CV system stable, vital signs stableRespiratory/Airway: respiratory system stable, maintains without supportPain: adequately controlledHydration: adequateTemp status: greater than 96.8F, normothermicPresence of N/V: noAnesthesia complications: noOther changes requiring f/u: noneConclusions: no apparent anes. issues at 1800 RPT #:[id number] OF REPORTPRProgress vcbw0913-47-55T64:00:00V.HVIQ85738545-8631SCKzejx able for patient waiuTGPXKVQPJPKUPE1464-20-44B34:01:46 [facility] 2022-09-19 17:53:00 [id number] axPg0hWMqXEcj85H/pCvJVIjmRv+y 1+7ZeLGONmn6W3u9srZCjb+ZaNE5632-53-16S71:53:96992 0-0240 [facility] PATIENT NAME: BUTCH ROCHA ADMIT DATE: 09/16/22ACCOUNT NO: [id number] ROOM NO: [facility] AGE: 57 REPORT TYPE: OPERATIVE REPORT SEX: F DATE OF : 65ADMITTING PHYSICIAN:José Miguel Padilla MD ATTENDING PHYSICIAN:José Miguel Padilla MD OPERATION DATE: 09/19/2022 PREOPERATIVE DIAGNOSIS: Dysphagia. POSTOPERATIVE DIAGNOSIS: Dysphagia with staple line bleeder. OPERATIVE PROCEDURE: EGD and cauterization of gastric staple line bleeder. PRIMARY SURGEON: Dr. Vasquez. SUPERVISOR CONDITIONING YARD: ____. ANESTHESIA: Monitored sedation. ANESTHESIOLOGIST: ____. INDICATIONS: A 57-year-old female 3 days status post sleeve gastrectomy, whowas intolerance of oral intake with upper GI study revealed delayed passage ofcontrast at the GE junction. The patient consented for EGD. Attendant riskdiscussed. PROCEDURE FINDINGS: Gastritis, diffuse, slow oozing at mid gastric staple line. PROCEDURE IN DETAIL: The patient was brought to endoscopy and placed in leftlateral decubitus. She was given IV conscious sedation. The endoscope ispassed through the patient's mouth into the esophagus without difficulty. Scopeis advanced under direct vision to GE junction approximately 35 cm. Noesophagitis encountered. No stricture at the GE junction. The scope passedeasily into the staple sleeve, the stomach has diffused gastritis. The scopeadvanced through the pylorus into the duodenum easily. In the mid gastricregion, there is an oozing at the staple line. At this point, I consulted to control the gastric staple line bleeder. He proceeded to performcauterization with the laser beam and he will dictate that portion. The patienttolerated the procedure well and transported to recovery room. Dictated By: José Miguel Padilla MD Date Dictated: 09/19/2022 17:53:53Date Transcribed: 09/19/2022 19:35:51DL/DOROTA/Ana #: [id number] PATIENT NAME: BUTCH ROCHA Receipt ID: [id number] and Edited by José Miguel Padilla MD On 09/29/22 3:29:43 PM at 0333 PATIENT NAME: BUTCH ROCHA cigsfg3005-72-28K12:35:00V.[id number] lable for patient yvgmDQDSVZIXEZLSJN5301-13-71D09:33:58 [facility] 2022-09-19 17:47:00 [id number]+PT0K D7c03KeF68jGXzdsn2VscjtQeTES0 Uybrybo/ihbEZNSA9B3InnFNmAB5568-40-95P06:47:00 [facility] ([facility])Brief Op NoeREPORT#:[id number] REPORT STATUS: SignedDATE:09/19/22 TIME: 1746 PATIENT: BUTCH ROCHA UNIT #: [id number]#: [id number] [address] AGE: 57 SEX: F ATTEND: José Miguel Padilla AUTHOR: José Miguel Padilla MD * ALL edits or amendments must be made on the electronic/computer document * Op/Inv Proc Note - BriefPre-procedure diagnosis:dysphagiaPost-procedure diagnosis: same as pre procedure dxProcedures performed:EGD and cauterization of gastric bleederPrimary Surgeon:DarmadiAssistant(s): LamFindings:gastric stapled line bleeder; gastritisComplications: noneEstimated blood loss in ml's: 3 ccSpecimens removed/altered: none at 1749 RPT #:[id number] OF REPORTOPOperative fhffln2254-99-01J97:47:00V.FXXO83848710-4442OFSdd ilable for patient fpsfZVOWCOXKIXZAJI2206-13-99W64:49:24 [facility] 2022-09-19 13:02:00 [id number] c0O9RqkbOnGG7JwB+ytvLgX4w8tcP FLddz4o+OH6QMW5N4mitxZXpEfy3778-42-93E90:02:00 [facility] ([facility])Hospitalist Progress NoteREPORT#:[id number] REPORT STATUS: SignedDATE:09/19/22 TIME: 1302 PATIENT: BUTCH ROCHA UNIT #: [id number]#: [id number] [address] AGE: 57 SEX: F ATTEND: José Miguel Padilla AUTHOR: Mayda Vo [employer] SOCIAL WORKER * ALL edits or amendments must be made on the electronic/computer document * Mayda Vo 09/19/22 1302:SubjectiveChief complaint:pt still with spasm when taking po. upper gi series done shows delay. Review of SystemsAll systems rev neg: except as marked Objective GeneralVS/I O:Vital Signs: Date Time Temp Pulse Resp B/P B/P Pulse O2 O2 Flow FiO2 Mean Ox Delivery Rate 09/19 1120 98.6 77 18 105/66 78.9 93 Room air 09/19 0952 96 Nasal 2 28 cannula 09/19 0447 97.5 79 17 97/61 72.6 93 09/19 0053 96 Nasal 2 28 cannula 09/19 0000 98.6 81 17 105/67 79.7 91 09/18 2334 Nasal 2 cannula 09/18 2045 98.2 92 17 109/65 79.8 92 09/18 1953 96 Nasal 2 cannula 09/18 1535 98.6 75 18 101/67 78.5 94 Nasal cannula PATIENT WEIGHT: Weight (lb): 295Weight (oz): 6.71Weight (kg): 134.000 Physical ExamGeneral appearance: obese, alert, awake, oriented, conversational, no respiratory distressHead/Eyes: atraumatic, normocephalic, PERRLACardiovascular: normal capillary refill, regular rate rhythmRespiratory: aerating well, symmetric expansionAbdomen: tenderness, softExtremities: moves all, normal capillary refillNeuro/FUEL TANK SEALER AND TESTER: alert, oriented X 3Skin: dry, intact ResultsFindings/Data:Laboratory Tests 09/19 0614 Chemistry Sodium (136 - 145 mmol/L) 138 Potassium (3.5 - 5.1 mmol/L) 3.1 L Chloride (98 - 107 mmol/L) 105.0 Carbon Dioxide (21 - 32 mmol/L) 31.0 Anion Gap (10 - 20) 5.1 L BUN (7 - 18 mg/dL) 7 Creatinine (0.55 - 1.02 mg/dL) 0.60 Glomerular Filtr Rate (>=60 mL/min) > 60 BUN/Creatinine Ratio (10 - 20) 10.9 Glucose (74 - 106 mg/dL) 96 Calcium (8.5 - 10.1 mg/dL) 7.9 L Radiology data:Recent Impressions:RADIOLOGY - XR UGI SNGL CONTRAST 09/19 0800 Report Impression - Status: SIGNED Entered: 09/19/2022 0937 IMPRESSION: Delayed passage of contrast through the gastroesophageal junction withspasming of the esophagus and tertiary esophageal contractions. Location: HCAImpression By: [email or web address] - Eliud Baptiste MD Diagnosis, Assessment PlanCode status: full codePlan discussed with: patient, collaborating MD, nurse Free Text DxA P NotesFree text DxA P notes:1. hypothyroidism- resume levothyroxine. 2. hypokalmia- k 3.1 today, replace and recheck. 3. mo4. s/p lap sleeve gastrectomy and hernia repair POD#3- spasming with clears, npo, pain mgt as needed, hg stable, encouarged to ambulate as tolerated. will give phenergan x1 now. UGI5. mild leukocytosis- improved. likely reactive. afebrile.6. gi/dvt ppx- ppi/lovenox. full code. plan- continue current tx, npo for EGD later today. Marco Anthony 09/19/22 2226:Attestations Physician AttestationAgree w/findings plan:Agree with the findings and plan as documented by ANP Mayda Vo. at 1306 at 2227 RPT #:[id number] OF REPORTPRProgress vgil6809-75-70M27:02:00V.HOVJ92267429-5414WBXsbeg able for patient fojzDAWNYMMKMXRMSR8733-12-42K78:06:28 [facility] 2022-09-19 11:02:00 [id number] +SlVDZezRdNF9qm+w9VaZqDNDhyJP 1XIrXlcBvevTmT4ww0TSpJA5D9F5654-22-92F53:02:00 [facility] CenterGeneral Surgery Progress NoteREPORT#:[id number] REPORT STATUS: SignedDATE:09/19/22 TIME: 1102 PATIENT: BUTCH ROCHA UNIT #: [id number]#: [id number] ROOM/BED: [facility]-ADOB: [birth year] AGE: 57 SEX: F ATTEND: José Miguel Padilla AUTHOR: José Miguel Padilla MD * ALL edits or amendments must be made on the electronic/computer document * SubjectivePatient reports:Yes: complaints (difficulty swallowing). Objective Physical ExamGeneral appearance: awakeAbdomen: soft ResultsFindings/Data:Laboratory Tests 09/19/22 0614:[Embedded Image Not Available]Laboratory Tests 09/19 613 Chemistry Sodium (136 - 145 mmol/L) 138 Potassium (3.5 - 5.1 mmol/L) 3.1 L Chloride (98 - 107 mmol/L) 105.0 Carbon Dioxide (21 - 32 mmol/L) 31.0 Anion Gap (10 - 20) 5.1 L BUN (7 - 18 mg/dL) 7 Creatinine (0.55 - 1.02 mg/dL) 0.60 Glomerular Filtr Rate (>=60 mL/min) > 60 BUN/Creatinine Ratio (10 - 20) 10.9 Glucose (74 - 106 mg/dL) 96 Calcium (8.5 - 10.1 mg/dL) 7.9 L Radiology data:Recent Impressions:RADIOLOGY - XR UGI SNGL CONTRAST 09/19 0800 Report Impression - Status: SIGNED Entered: 09/19/2022 0937 IMPRESSION: Delayed passage of contrast through the gastroesophageal junction withspasming of the esophagus and tertiary esophageal contractions. Location: HCAImpression By: LoryRRYissel Baptiste MD Diagnosis, Assessment PlanFree Text A P:Dysphagia possible spasm versus tight hiatal repair; EGD at 1104 RPT #:[id number] OF REPORTPRProgress pjtu1469-92-59Q75:02:00V.ZUXT23471243-3184QXQjbhu able for patient gdhmPJCKXMFLAGMETG8476-02-03G40:05:34 [facility] 2022-09-18 12:45:00 [id number] 0DVVqJyJBdY00ZvEucB340h9NxyQt xyh2wzswbbJz2OH7ux/OEyY4aoG4428-95-07Z25:45:00 [facility] CenterGeneral Surgery Progress NoteREPORT#:[id number] REPORT STATUS: SignedDATE:09/18/22 TIME: 1245 PATIENT: BUTCH ROCHA UNIT #: [id number]#: [id number] ROOM/BED: [facility]-ADOB: [birth year] AGE: 57 SEX: F ATTEND: José Miguel Padilla [facility] AUTHOR: José Miguel Padilla MD * ALL edits or amendments must be made on the electronic/computer document * SubjectivePatient reports:Yes: complaints (dysphagia). Objective Physical ExamGeneral appearance: awakeAbdomen: soft ResultsFindings/Data:Laboratory Tests 09/18/22 0515:[Embedded Image Not Available] 09/17/22 1437:[Embedded Image Not Available]Laboratory Tests 09/18 09/17 0515 1437 Chemistry Sodium (136 - 145 mmol/L) 139 Potassium (3.5 - 5.1 mmol/L) 2.7 *L 3.3 L Chloride (98 - 107 mmol/L) 104.0 Carbon Dioxide (21 - 32 mmol/L) 30.0 Anion Gap (10 - 20) 7.7 L BUN (7 - 18 mg/dL) 9 Creatinine (0.55 - 1.02 mg/dL) 0.70 Glomerular Filtr Rate (>=60 mL/min) > 60 BUN/Creatinine Ratio (10 - 20) 12.5 Glucose (74 - 106 mg/dL) 88 Calcium (8.5 - 10.1 mg/dL) 8.2 L Laboratory Tests 09/18 0515 Hematology WBC (4.5 - 12.5 K/mm3) 10.3 RBC (3.7 - 5.2 mill/mm3) 4.15 Hgb (11.5 - 15.5 gram/dL) 13.2 Hct (36.0 - 46.0 %) 39.6 MCV (80 - 98 fL) 95.4 MCH (27.0 - 33.0 picogram) 31.8 MCHC (33.0 - 36.0 gram/dL) 33.3 RDW (11.6 - 16.2 %) 15.7 RDW Std Deviation (37.0 - 51.0 fL) 55.1 H Plt Count (150 - 450 K/mm3) 189 MPV (6.7 - 11.0 fL) 9.6 Neut % (Auto) (39.0 - 69.0 %) 73.6 H Lymph % (Auto) (25.0 - 55.0 %) 16.2 L Geary % (Auto) (0.0 - 10.0 %) 8.0 Eos % (Auto) (0.0 - 5.0 %) 1.4 Baso % (Auto) (0.0 - 1.0 %) 0.4 Neut # (Auto) (1.8 - 7.7 K/mm3) 7.60 Lymph # (Auto) (1.0 - 5.0 K/mm3) 1.67 Geary # (Auto) (0 - 0.8 K/mm3) 0.83 H Eos # (Auto) (0.0 - 0.5 K/mm3) 0.14 Baso # (Auto) (0.0 - 0.2 K/mm3) 0.04 Nucleated RBC % (0 - 0 %) 0.0 Nucleated RBCs # (Man) (0.0 - 0.1 K/mm3) 0.00 Diagnosis, Assessment PlanFree Text A P:UGI study; K+ replacement at 1246 RPT #:[id number] OF REPORTPRProgress iwzs3981-79-45Q27:45:00V.MCWM46635561-0273XBJyuys able for patient mrarRUISIHQGOKGMJJ2357-78-89B28:46:37 [facility] 2022-09-18 11:50:00 [id number] 1fgG8SnwQgKzdhfHQVr+LJbHf/qlq zAB5bCneOshnPOtN/xP4qImR+fm2708-18-37D93:50:00 [facility] CenterHospitalist Progress NoteREPORT#:[id number] REPORT STATUS: SignedDATE:09/18/22 TIME: 1150 PATIENT: BUTCH ROCHA UNIT #: [id number]#: [id number] [address] AGE: 57 SEX: F ATTEND: José Miguel Padilla [facility] AUTHOR: Mayda Vo HOME HE[employer] C[employer] SOCIAL WORKER * ALL edits or amendments must be made on the electronic/computer document * Mayda Vo 09/18/22 1150:SubjectiveChief complaint:reports still n/v and abd pain Review of SystemsGI:Reports: abdominal pain. All systems rev neg: except as marked Objective GeneralVS/I O:Vital Signs: Date Time Temp Pulse Resp B/P B/P Pulse O2 O2 Flow FiO2 Mean Ox Delivery Rate 09/18 1112 97.9 71 18 99/65 76.2 96 Room air 09/18 0833 96 Nasal 3 32 cannula 09/18 0825 Nasal 3 cannula 09/18 0739 98.4 95 18 92/61 70.9 96 Nasal cannula 09/18 0435 97.9 81 18 125/76 92.7 91 Room air 09/18 0251 Nasal 2 cannula 09/18 0155 96 Nasal 3 32 cannula 09/17 2359 98.2 84 18 128/74 92.3 93 Room air 09/17 2026 98.2 78 16 130/62 84.6 93 Nasal cannula 09/17 1949 95 Nasal 3 32 cannula 09/17 1604 98.4 88 16 131/85 100.6 95 Room air 09/17 1506 4 24 hour I O ending at 0700: 09/18 0700 09/17 1900 Intake Total Output Total Balance Number Voids 1 PATIENT WEIGHT: Weight (lb): 295Weight (oz): 6.71Weight (kg): 134.000 Physical ExamGeneral appearance: obese, alert, awake, oriented, conversational, no respiratory distressHead/Eyes: atraumatic, normocephalic, PERRLACardiovascular: normal capillary refill, regular rate rhythmRespiratory: aerating well, symmetric expansionAbdomen: tenderness, softExtremities: moves all, normal capillary refillNeuro/FUEL TANK SEALER AND TESTER: alert, oriented X 3Skin: dry, intact ResultsFindings/Data:Laboratory Tests 09/18 514 Chemistry Sodium (136 - 145 mmol/L) 139 Potassium (3.5 - 5.1 mmol/L) 2.7 *L Chloride (98 - 107 mmol/L) 104.0 Carbon Dioxide (21 - 32 mmol/L) 30.0 Anion Gap (10 - 20) 7.7 L BUN (7 - 18 mg/dL) 9 Creatinine (0.55 - 1.02 mg/dL) 0.70 Glomerular Filtr Rate (>=60 mL/min) > 60 BUN/Creatinine Ratio (10 - 20) 12.5 Glucose (74 - 106 mg/dL) 88 Calcium (8.5 - 10.1 mg/dL) 8.2 L Laboratory Tests 09/18 514 Hematology WBC (4.5 - 12.5 K/mm3) 10.3 RBC (3.7 - 5.2 mill/mm3) 4.15 Hgb (11.5 - 15.5 gram/dL) 13.2 Hct (36.0 - 46.0 %) 39.6 MCV (80 - 98 fL) 95.4 MCH (27.0 - 33.0 picogram) 31.8 MCHC (33.0 - 36.0 gram/dL) 33.3 RDW (11.6 - 16.2 %) 15.7 RDW Std Deviation (37.0 - 51.0 fL) 55.1 H Plt Count (150 - 450 K/mm3) 189 MPV (6.7 - 11.0 fL) 9.6 Neut % (Auto) (39.0 - 69.0 %) 73.6 H Lymph % (Auto) (25.0 - 55.0 %) 16.2 L Geary % (Auto) (0.0 - 10.0 %) 8.0 Eos % (Auto) (0.0 - 5.0 %) 1.4 Baso % (Auto) (0.0 - 1.0 %) 0.4 Neut # (Auto) (1.8 - 7.7 K/mm3) 7.60 Lymph # (Auto) (1.0 - 5.0 K/mm3) 1.67 Geary # (Auto) (0 - 0.8 K/mm3) 0.83 H Eos # (Auto) (0.0 - 0.5 K/mm3) 0.14 Baso # (Auto) (0.0 - 0.2 K/mm3) 0.04 Nucleated RBC % (0 - 0 %) 0.0 Nucleated RBCs # (Man) (0.0 - 0.1 K/mm3) 0.00 Diagnosis, Assessment PlanCode status: full codePlan discussed with: patient, collaborating MD, nurse Free Text DxA P NotesFree text DxA P notes:1. hypothyroidism- resume levothyroxine. 2. hypokalmia- k 2.7 again today, replace and recheck. 3. mo4. s/p lap sleeve gastrectomy and hernia repair POD#2- on clear liquids, pain mgt as needed, hg stable, encouarged to ambulate as tolerated. will give phenergan x1 now. 5. mild leukocytosis- improved. likely reactive. afebrile.6. gi/dvt ppx- ppi/lovenox. full code. still with n/v, replace k, will give phenergan x1. repeat bmp in am. updated family at bedside. Marco Anthony 09/18/22 3537:Attestations Physician AttestationAgree w/findings plan:Agree with the findings and plan as documented by NAINA Vo. at 1455 at 1841 RPT #:[id number] OF REPORTPRProgress [id number]:50:00V.[id number] able for patient [id number]:55:55 [facility] 2022-09-17 13:39:00 [id number]+bHZhoHhfwXEdtBM6722-08-60K05:39:00 [facility] Progress NoteREPORT#:[id number] REPORT STATUS: SignedDATE:09/17/22 TIME: 1339 PATIENT: BUTCH ROCHA UNIT #: [id number]#: [id number] ROOM/BED: [facility]-ADOB: [birth year] AGE: 57 SEX: F ATTEND: José Miguel Padilla AUTHOR: José Miguel Padilla MD * ALL edits or amendments must be made on the electronic/computer document * SubjectivePatient reports:Yes: ambulating, tolerating diet. Objective GeneralVS/I O:Last Documented: Result Date Time Pulse Ox 93 09/17 1056 B/P 123/80 09/17 1056 B/P Mean 94.5 09/17 1056 O2 Delivery Nasal cannula 09/17 1056 Temp 98.2 09/17 1056 Pulse 84 09/17 1056 Resp 16 09/17 1056 FiO2 32 09/17 0839 O2 Flow Rate 3 09/17 0839 Vital SignsDate Temp Pulse Resp B/P B/P Mean Pulse Ox HdO731/27-09/17 97.2-98.8 80-97 15-23 112-158/61-84 81.0-102.5 90-100 32 24 hour I O ending at 0700: 09/17 0700 09/16 1900 Intake Total Output Total 200 Balance -200 Output, Urine 200 PATIENT WEIGHT: Weight (lb): 295Weight (oz): 6.71Weight (kg): 134.000 Physical ExamGeneral appearance: awakeAbdomen: soft ResultsFindings/Data:Laboratory Tests 09/17/22425:[Embedded Image Not Available]Laboratory Tests 09/177 0426 Chemistry Sodium (136 - 145 mmol/L) 139 Potassium (3.5 - 5.1 mmol/L) 2.7 *L Chloride (98 - 107 mmol/L) 103.0 Carbon Dioxide (21 - 32 mmol/L) 31.0 Anion Gap (10 - 20) 7.7 L BUN (7 - 18 mg/dL) 21 H Creatinine (0.55 - 1.02 mg/dL) 1.00 Glomerular Filtr Rate (>=60 mL/min) > 60 BUN/Creatinine Ratio (10 - 20) 20.4 H Glucose (74 - 106 mg/dL) 140 H Calcium (8.5 - 10.1 mg/dL) 7.8 L Magnesium (1.8 - 2.4 mg/dL) 1.9 Laboratory Tests 09/17 425 Hematology WBC (4.5 - 12.5 K/mm3) 16.9 H RBC (3.7 - 5.2 mill/mm3) 4.53 Hgb (11.5 - 15.5 gram/dL) 14.5 Hct (36.0 - 46.0 %) 42.6 MCV (80 - 98 fL) 94.0 MCH (27.0 - 33.0 picogram) 32.0 MCHC (33.0 - 36.0 gram/dL) 34.0 RDW (11.6 - 16.2 %) 15.4 RDW Std Deviation (37.0 - 51.0 fL) 53.4 H Plt Count (150 - 450 K/mm3) 259 MPV (6.7 - 11.0 fL) 9.3 Neut % (Auto) (39.0 - 69.0 %) 86.2 H Lymph % (Auto) (25.0 - 55.0 %) 4.5 L Geary % (Auto) (0.0 - 10.0 %) 8.7 Eos % (Auto) (0.0 - 5.0 %) 0.0 Baso % (Auto) (0.0 - 1.0 %) 0.1 Neut # (Auto) (1.8 - 7.7 K/mm3) 14.54 H Lymph # (Auto) (1.0 - 5.0 K/mm3) 0.76 L Geary # (Auto) (0 - 0.8 K/mm3) 1.47 H Eos # (Auto) (0.0 - 0.5 K/mm3) 0.00 Baso # (Auto) (0.0 - 0.2 K/mm3) 0.02 Nucleated RBC % (0 - 0 %) 0.0 Nucleated RBCs # (Man) (0.0 - 0.1 K/mm3) 0.00 Diagnosis, Assessment PlanFree Text A P:Replace K+ at 1340 RPT #:[id number] OF REPORTPRProgress xlcw6457-06-69A28:39:00V.LGBE84316820-2619VIVirww able for patient tjmtKNLHOKSDEYSFYN1490-56-79H49:40:47 [facility] 2022-09-17 08:41:00 [id number] jkjfblb1wCgqkKOCDt4dY9WCoAUc6 fH07hfCrWpGt0Ctl6ANz38MkX4I0114-36-74V48:41:00 [facility] ([facility])Adult General ConsultationREPORT#:[id number] REPORT STATUS: SignedDATE:09/17/22 TIME: 0841 PATIENT: BUTCH ROCHA UNIT #: [id number]#: [id number] ROOM/BED: [facility]-ADOB: [birth year] AGE: 57 SEX: F ATTEND: José Miguel Padilla [facility] AUTHOR: Mayda Vo [employer] HE[employer] C[employer] SOCIAL WORKER * ALL edits or amendments must be made on the electronic/computer document * Mayda Vo 09/17/22 0841:History of Present IllnessRequesting Clinician: Surya Menezes for consult:medical mgtChief complaint:post op abd painPCP:PCP: José Miguel Padilla MD HPI:57 y/o female with pmh of hypothyrodisim, mood disorder, chronic pain, and MO admitted post lap sleeve gastrectomy and H hernia repair. She denies any chest pain or sob. She reports post op abd pain and spasm that started today, tolerating clears but reports pain and nausea with every intake. abd is soft, dressings intact. History - Adult longitudinalPast surgical history:Reports: Cholecystectomy, Spine surgery. Alcohol use: Denies EtOH useDrug use: Denies recreational drugsSmoking status for patients 13 years old or older: Current every day smokerDate last smoked: 09/08/22Packs per day: 1Years smoked: 49Pack years: 49Medications:Home Medications:Medication Dose/Rte/Freq Days Qty Entered Last Max Daily Dose Reviewed MULTIVITAMIN 1 TAB PO DAILY 12/20/21 (MULTIPLE VITAMIN) 1556Strength: 1 TAB TAB ASCORBIC ACID (VITAMIN C) 500 MG IV WEEKLY 09/08/22Strength: 500 MG/ML VIAL [address] (CYMBALTA) 60 MG PO DAILY 09/08/22Strength: 60 MG CAP.DR 1145 FERROUS GLUCONATE 480 MG PO WEEK 09/08/22 (FERATE) 1145Strength: 240 MG TAB FUROSEMIDE (LASIX) 20 MG PO DAILY 09/08/22Strength: 20 MG TAB 1146 GABAPENTIN (NEURONTIN) 800 MG PO TID 09/08/22Strength: 800 MG TAB 1146 LEVOTHYROXINE 200 MCG PO DAILY 09/08/22 (SYNTHROID) 1146Strength: 200 MCG TAB methocarbamoL (ROBAXIN) 1,500 MG PO TID 09/08/22Strength: 500 MG TAB 1147 HYDROcodone/APAP 1 TAB PO 09/08/22 (HYDROcodone/APAP 5/325) Q4H PRN PRN PAIN 1147Strength: 5 MG-325 MG TAB ALBUTEROL 2 PUFF INH 09/08/22 (PROAIR DIGIHALER 90 RTQ4H PRN PRN 1148 MCG/ACT 0.65 GM) ASTHMAStrength: 90 MCG INHALER CHOLECALCIFEROL 50,000 UNIT PO Q7D 09/08/22 (VITAMIN D3) 1148 (VITAMIN D3)Strength: 1,250 MCG (50,000UNIT) CAP CYANOCOBALAMIN 1,000 MCG IM WEEK 09/08/22 (VITAMIN B-12) 1149Strength: 1,000 MCG/ML VIAL predniSONE 20 MG PO DAILY 09/08/22Strength: 20 MG TAB 1149 POTASSIUM GLUCONATE (Unknown Dose) PO 09/08/22 (POTASSIUM) DAILY 1201Strength: (UnknownStrength) TAB Current Hospital Medications:Anti-Infective Agents Sig/Joseline Start time Last Medication Dose Route Stop Time Status Admin Cefazolin Sodium 2 GM Q8H 09/16 1750 DC 09/17 (Cefazolin Sodium) IV 09/17 0219 0111 Sodium Chloride 100 ML (SODIUM CHLORIDE 0.9%) Autonomic Drugs Sig/Joseline Start time Last Medication Dose Route Stop Time Status Admin Albuterol/Ipratropium 3 ML RTQ6H 09/16 1945 AC 09/17 (DUONEB) INH 10/16 1944 1417 Albuterol/Ipratropium 3 ML PACU ONCE ONE 09/16 1445 DC 09/17 (DUONEB) INH 09/16 1446 0837 Albuterol/Ipratropium 0 .STK-MED ONE 09/16 1444 DCr 09/16 (DUONEB) INH 1449 Blood Formation,Coagulation Sig/Jsoeline Start time Last Medication Dose Route Stop Time Status Admin Enoxaparin Sodium 40 MG 1700 09/17 1700 AC (LOVENOX 40MG SUBQ 10/17 1659 SYRINGE) Central Nervous System Agents Sig/Joseline Start time Last Medication Dose Route Stop Time Status Admin Hydrocodone Bitart/ 15 ML Q4H PRN PRN 09/17 1430 AC Acetaminophen PO 09/22 1429 (HYDROCODONE/ ACETAMINOPHEN) Duloxetine HCl 60 MG DAILY 09/17 0900 AC 09/17 (CYMBALTA) PO 10/17 0859 0808 Acetaminophen/ 5 ML Q4H PRN PRN 09/16 1430 AC Codeine Phosphate PO 09/21 1429 (TYLENOL W/CODEINE) Hydromorphone HCl 0.5 MG Q4H PRN PRN 09/16 1430 AC 09/17 (Hydromorphone HCl) IV 09/21 1429 1301 Ketorolac 15 MG Q6H PRN PRN 09/16 1430 AC 09/16 Tromethamine IV 09/21 1429 1755 (KETOROLAC TROMETHAMINE) Electrolytic, Caloric, And Alfonso Sig/Joseline Start time Last Medication Dose Route Stop Time Status Admin Potassium Chloride/ 100 ML Q2H 09/17 0700 DC 09/17 Water IV 09/17 1059 1027 (POTASSIUM CHLORIDE) Sodium Chloride 1,000 ML .Q24H 09/08 1130 AC 09/17 (SODIUM CHLORIDE IV 10/08 1129 1305 0.9%) Gastrointestinal Drugs Sig/Joseline Start time Last Medication Dose Route Stop Time Status Admin Ondansetron HCl 4 MG Q6H PRN PRN 09/16 1430 AC 09/17 (ondansetron HCL) IV 10/16 1429 1304 Hormones And Synthetic Substit Sig/Joseline Start time Last Medication Dose Route Stop Time Status Admin Levothyroxine Sodium 200 MCG DAILY 09/17 0900 AC 09/17 (Levothyroxine PO 10/17 0859 0809 Sodium) Allergies:Coded Allergies:No Known Allergies (12/20/21) Review of SystemsAll systems rev neg: except as marked ObjectiveVS/I O:Last Documented: Result Date Time Pulse Ox 94 09/17 07 B/P 140/84 09/17 716 B/P Mean 102.5 09/17 07 O2 Delivery Nasal cannula 09/17 07 Temp 98.2 09/17 0717 Pulse 87 09/17 0717 Resp 16 09/17 0717 FiO2 32 09/17 0132 O2 Flow Rate 3 09/17 0132 24 hour I O ending at 0700: 09/17 0700 09/16 1900 Intake Total Output Total 200 Balance -200 Output, Urine 200 PATIENT WEIGHT: Weight (lb): 295Weight (oz): 6.71Weight (kg): 134.000 General appearance: alert, awake, orientedHead/Eyes: atraumatic, normocephalicCardiovascular: normal capillary refill, regular rate rhythmRespiratory: aerating well, symmetric expansionAbdomen: tenderness, softExtremities: moves all, normal capillary refillNeuro/FUEL TANK SEALER AND TESTER: alert, oriented X 3Skin: dry ResultsFindings/Data:Laboratory Tests: 09/17 0426 Chemistry Sodium (136 - 145 mmol/L) 139 Potassium (3.5 - 5.1 mmol/L) 2.7 *L Chloride (98 - 107 mmol/L) 103.0 Carbon Dioxide (21 - 32 mmol/L) 31.0 Anion Gap (10 - 20) 7.7 L BUN (7 - 18 mg/dL) 21 H Creatinine (0.55 - 1.02 mg/dL) 1.00 Glomerular Filtr Rate (>=60 mL/min) > 60 BUN/Creatinine Ratio (10 - 20) 20.4 H Glucose (74 - 106 mg/dL) 140 H Calcium (8.5 - 10.1 mg/dL) 7.8 L Hematology WBC (4.5 - 12.5 K/mm3) 16.9 H RBC (3.7 - 5.2 mill/mm3) 4.53 Hgb (11.5 - 15.5 gram/dL) 14.5 Hct (36.0 - 46.0 %) 42.6 MCV (80 - 98 fL) 94.0 MCH (27.0 - 33.0 picogram) 32.0 MCHC (33.0 - 36.0 gram/dL) 34.0 RDW (11.6 - 16.2 %) 15.4 RDW Std Deviation (37.0 - 51.0 fL) 53.4 H Plt Count (150 - 450 K/mm3) 259 MPV (6.7 - 11.0 fL) 9.3 Neut % (Auto) (39.0 - 69.0 %) 86.2 H Lymph % (Auto) (25.0 - 55.0 %) 4.5 L Geary % (Auto) (0.0 - 10.0 %) 8.7 Eos % (Auto) (0.0 - 5.0 %) 0.0 Baso % (Auto) (0.0 - 1.0 %) 0.1 Neut # (Auto) (1.8 - 7.7 K/mm3) 14.54 H Lymph # (Auto) (1.0 - 5.0 K/mm3) 0.76 L Geary # (Auto) (0 - 0.8 K/mm3) 1.47 H Eos # (Auto) (0.0 - 0.5 K/mm3) 0.00 Baso # (Auto) (0.0 - 0.2 K/mm3) 0.02 Nucleated RBC % (0 - 0 %) 0.0 Nucleated RBCs # (Man) (0.0 - 0.1 K/mm3) 0.00 Diagnosis, Assessment PlanOrders: Procedure Date/time Status CBC WITH DIFF 09/18 0500 Active BASIC METABOLIC PANEL 09/18 0500 Active POTASSIUM 09/17 1334 Active MAGNESIUM 09/17 0843 Complete Plan discussed with: patient, family, collaborating MD, nurse Code Status/Resusc. DiscussionResuscitation discussion: Discussed with: patientCode status: full code Free Text DxA P NotesFree Text DxA P Notes:1. hypothyroidism- resume levothyroxine. 2. hypokalmia- replaced. check mag level3. mo4. s/p lap sleeve gastrectomy and hernia repair POD#1- started on clear liquids,pain mgt as needed, hg stable, encouarged to ambulate as tolerated. 5. gi/dvt ppx- ppi/lovenox. full code. THank you Dr Padilla for this consult, will continue to follow Marco Anthony 09/18/22 1040:Attestations Physician AttestationAgree w/findings plan:Agree with the findings and plan as documented by ANP Mayda Vo. at 1424 at 1042 RPT #:[id number] OF REPORTKFIpdpsygkppim9961-60-44M18:41:00V.PDOC2 [id number] for patient dzttSYDWEPHDTJUWIO8471-29-21P85:24:33 [facility] 2022-09-16 17:30:00 [id number] DaQr2geFChS80F1Wob/E99Ex9vFJt N0pepiPixr0oaJf10FX9ajluymb9097-00-85A82:30:00 [facility] ([facility])Post Anesthesia EvaluationREPORT#:[id number] REPORT STATUS: SignedDATE:09/16/22 TIME: 1730 PATIENT: BUTCH ROCHA UNIT #: [id number]#: [id number] ROOM/BED: 3039-ADOB: [birth year] AGE: 57 SEX: F ATTEND: José Miguel Padilla [facility] AUTHOR: Jo Ho MD * ALL edits or amendments must be made on the electronic/computer document * Post Anesthesia Evaluation Anes. changes from pre-op evalAnesthetic: GETASurgery:robotic laparoscopic sleeve gastrectomyDate: 09/16/22Level of consciousness: patient awake, able to answer questions, participate in this eval.Neurological assessment: Neuromuscular block: resolved as expected Musculoskeletal: moves all extremities, sensation intact, returned to pre-statusVital signs:Last Documented: Result Date Time O2 Delivery Nasal cannula 09/16 1713 O2 Flow Rate 4 09/16 1713 Pulse Ox 90 09/16 1711 B/P 121/74 09/16 1711 B/P Mean 89.4 09/16 1711 Temp 36.4 09/16 1711 Pulse 80 09/16 1711 Resp 16 09/16 1711 Sats 92-92 % on NC in PACUCardiovascular: CV system stable, vital signs stableRespiratory/Airway: respiratory system stable, got Duoneb breathing treatment inPACU, sats still in low 90's, no respiratory distress, to floor on NC O2. Pt smoker with asthma and preop RA Sats 93%Pain: adequately controlledHydration: adequateTemp status: normothermicPresence of N/V: noAnesthesia complications: noOther changes requiring f/u: noneConclusions: no apparent anes. issues at 1733 [facility] #:[id number] OF REPORTPRProgress hfsu5291-82-64B17:30:00V.CUAV52565052-0516CUGcvys able for patient bbmvNSUTXXVASLIHIA3660-52-70Z09:34:17 [facility] 2022-09-16 15:00:00 [id number] whdNyq5jH4zFO0GrbokHHzb9HLDgd q56vTE77qa+vX260basReLSxmTX6361-38-40C19:00:90969 7-0163 [facility] PATIENT NAME: BUTCH ROCHA ADMIT DATE: 09/16/22ACCOUNT NO: [id number] ROOM NO: V.3039 AGE: 57 REPORT TYPE: OPERATIVE REPORT SEX: F DATE OF : 65ADMITTING PHYSICIAN:José Miguel Padilla MD ATTENDING PHYSICIAN:José Miguel Padilla MD OPERATION DATE: 09/16/2022 PREOPERATIVE DIAGNOSES: Morbid obesity and a hiatal hernia with gastroesophageal reflux disease. POSTOPERATIVE DIAGNOSIS: PROCEDURE: Robotic sleeve gastrectomy; hiatal hernia repair with gastropexy. SURGEON: José Miguel Padilla MD ANESTHESIA: General. ANESTHESIOLOGIST: Dr. Ho. SUPERVISOR CONDITIONING YARD: Juan Ramon. INDICATIONS: The patient is a 57-year-old female with history of morbid obesityand GERD with hiatal hernia with BMI of 50. The patient consented for robotic sleeve gastrectomy; hiatal hernia repair. Attendant risk discussed. PROCEDURE FINDINGS: Moderate-sized hiatal hernia. DESCRIPTION OF PROCEDURE: The patient was brought to the OR, intubated. The abdomen is prepped and draped in sterile fashion. An infraumbilical incision was made and a 5 mm port inserted and insufflation begun. Under direct vision, adhesions encountered in the periumbilical region. Additional ports were placedin the subxiphoid bilateral midclavicular line above the umbilicus and the left anterior axillary line ports were placed. Lysis of adhesions was carried out atthe umbilical area using a LigaSure. At this point, the robotic instruments were docked. We proceeded to lift the left lobe of the liver anteriorly exposing the hiatal hernia, which is moderate in size. Gastrohepatic ligament was taken down with the vessel sealer, exposing the right edilia, which was then pulled around the arch of the hiatus to the left side. A moderate sized hiatal hernia was completely reduced with blunt dissection. We then identified the pylorus and 6 cm, removed on the greater curvature. We proceeded to take down the gastrocolic ligament, flush to the stomach using the vessel sealer progressing toward the angle of His. A 40-[place]er bougie was then inserted with the tip near the pylorus serving as a template for longitudinal sleeve gastrectomy, which was initiated in the antrum with a green load of the stapler. Sequential firing of the stapler is carried out until we reached the area of the GE junction, staying two to three cm away from the GE junction and angle of His. Gastric staple line checked. Bleeding points cauterized. Hemostasis was PATIENT NAME: BUTCH ROCHA achieved. We then proceeded to repair the hiatal hernia anteriorly with a V-Locpermanent 2-0 stitch with a bougie in place and there is still a space to prevent undue tightness. Gastropexy stitch was then placed using 2-0 permanent V-Loc stitches taking bites into the anterior phrenoesophageal ligament as well as posterior phrenoesophageal ligament. Then, the crural tissue below the conjoined area of the right edilia, a second stitch was placed 1 cm caudad to first along the lesser curvature of the stomach and these gastropexy stitch was then tied down. We proceeded to test the repair using the balloon catheter to calibrate the tightness of the repair. At this point, the operative field was irrigated. Omentopexy stitch is placed with a running 2-0 V-Loc stitch along the greater curvature. At the end of procedure, gastric specimen removed from the peritoneal cavity. The operative field was irrigated, hemostasis achieved. Ports were removed under direct vision. Fascial closure with 0 Vicryl, skin closed with subcuticular stitch. The patient was extubated and transported to recovery room. BLOOD LOSS: 20 mL Dictated By: José Miguel Padilla MD Date Dictated: 09/16/2022 15:00:05Date Transcribed: 09/16/2022 19:33:22DIONICIO/Lj #: [id number] ID: [id number] by José Miguel Padilla MD On 09/29/2022 03:28:23 PM at 0328 PATIENT NAME: BUTCH ROCHA fjjhwr7168-87-51L99:33:00V.[id number] lable for patient dryrWLGPFOBDJQXFSA0730-64-30W20:28:56 [facility] 2022-09-16 14:14:00 [id number] piQsE/b8epVlVpIyeXFehgHLLDZ4E fbHpj7Mya2Ib7Y31hmyCg47bwh50853-76-00D71:14:00 [facility] ([facility]Brief Op NoeREPORT#:[id number] REPORT STATUS: SignedDATE:09/16/22 TIME: 1414 PATIENT: BUTCH ROCHA UNIT #: [id number]#: [id number] ROOM/BED:: 65 AGE: 57 SEX: F ATTEND: José Miguel Padilla AUTHOR: José Miguel Padilla MD * ALL edits or amendments must be made on the electronic/computer document * Op/Inv Proc Note - BriefPre-procedure diagnosis:morbid obesity with gerd/hiatal herniaPost-procedure diagnosis: same as pre procedure dxProcedures performed:robotic sleeve gastrectomy / hiatal hernia repair with gastropexyPrimary Surgeon:Thadistant(s): Juan RamonFindings:moderate sized hiatal herniaComplications: noneEstimated blood loss in ml's: 20 ccSpecimens removed/altered: stomach at 1416 RPT #:[id number] OF REPORTOPOperative obqqea2482-02-07H33:14:00V.EBLO95930639-5465DXWaq ilable for patient srzbMHEDUOXMSFRCWV6868-94-89Y84:16:56 [facility] 2021-12-24 12:29:00 [id number] +zfaTA3RMD8lEKEZaXKy3sBVzanuO kJHYENZoSE6XWn+SndBORz+A/+v5081-45-73R80:29:00 [facility] ([facility])Post Anesthesia EvaluationREPORT#:[id number] REPORT STATUS: SignedDATE:12/24/21 TIME: 1229 PATIENT: BUTCH ROCHA UNIT #: [id number]#: [id number] ROOM/BED:: 65 AGE: 56 SEX: F ATTEND: José [facility] AUTHOR: Theodore Gibson MD * ALL edits or amendments must be made on the electronic/computer document * Post Anesthesia Evaluation Anes. changes from pre-op evalORM Surgeries: Surgery Date and Time: 12/24/2021 0730 Primary Procedure: EXCISION OF NECK MASS BACK MOLE Anesthetic: GETASurgery:excision of back lipoma and skin neviDate: 12/24/21Level of consciousness: no change, patient awake, able to answer questions, participate in this eval.Neurological assessment: Neuromuscular block: resolved as expected Musculoskeletal: moves all extremities, sensation intact, returned to pre-statusVital signs:Last Documented: Result Date Time Pulse Ox 95 12/24 0945 B/P 101/57 12/24 0945 O2 Delivery Room air 12/24 0945 Temp 36.1 12/24 0945 Pulse 67 12/24 0945 Resp 14 12/24 0945 O2 Flow Rate 8 12/24 0843 Cardiovascular: no change, CV system stable, vital signs stableRespiratory/Airway: respiratory system stable, maintains without supportPain: adequately controlledHydration: adequateTemp status: greater than 96.8FPresence of N/V: noAnesthesia complications: noOther changes requiring f/u: noneConclusions: no apparent anes. issues, outpts eval prior DC home at 1230 RPT #:[id number] OF REPORTPRProgress udan5141-67-43S89:29:00V.OMON17382842-4931EDVxntv able for patient zwymFKEZULOBHMVOHR3571-64-07X21:30:59 [facility] 2021-12-24 09:03:00 [id number] f7szswm9SusasNjCmWgy7qaRh227Y m5+nSS6dM61RD21+gSRDoqO9xTS1639-30-62H29:03:23797 6-0103 [facility] PATIENT NAME: BUTCH ROCHA ADMIT DATE: 12/24/21ACCOUNT NO: [id number] ROOM NO: AGE: 56 REPORT TYPE: OPERATIVE REPORT SEX: F DATE OF : 65ADMITTING PHYSICIAN: ATTENDING PHYSICIAN:José Miguel Padilla MD OPERATION DATE: 12/24/2021 PREOPERATIVE DIAGNOSIS: Back lipoma and nevi. POSTOPERATIVE DIAGNOSIS: Back lipoma and nevi. OPERATIVE PROCEDURE: Excisional biopsy of lipoma and nevus in the upper back. OPERATING SURGEON: José Miguel Padilla MD SUPERVISOR CONDITIONING YARD: ANESTHESIA: General. INDICATIONS: A 56-year-old female with growing mass in the upper back andenlarging nevus on the left upper back. She consented for excision of theseunder anesthesia. Attendant risk discussed. DESCRIPTION OF PROCEDURE: The patient was brought to the OR and intubated. Shewas then repositioned to the left lateral with the right side up. The upperback and neck was prepped with alcohol and draped in sterile fashion. Thelipoma in the right upper back is palpated and the skin overlying the mass wasinjected with 0.5% Marcaine. A transverse 5 cm incision was made overlying thelipoma and dissection carried through subcutaneous tissue down to the capsule ofthe lipoma, which was then incised. The lipoma was enucleated withoutdifficulty. It measured approximately 5 cm in diameter. Wound was checked forbleeding. Hemostasis achieved with cauterization. Skin closure with a runningstitch of 4-0 Vicryl subcuticular. We then proceeded to approach the nevus inthe left upper back, doing elliptical incisions to remove the mid upper backnevus approximately 2.5 x 1.5 incisions removing the nevus in full thickness. The wound bleeding is cauterized. Hemostasis achieved. Similarly, the smallernevus more laterally in the left upper back was also excised with an ellipticalincision measuring 1.5 x 1 cm, removing the entire nevus full thickness. Hemostasis achieved. Skin closure with a subcuticular stitch of 3-0 Vicryl. Dermabond was applied. The patient tolerated the procedure, was extubated andtransported to the recovery room. BLOOD LOSS: 4 mL. Dictated By: José Miguel Padilla MD WT: OP:МАРИНА/JULITA/NTSDD: 12/24/2021 09:03:35 PATIENT NAME: BUTCH ROCHA Conf#: [id number]/DID#: [id number] Authenticated by José Miguel Padilla MD On 12/26/2021 10:56:28 AM at 1056 PATIENT NAME: BUTCH ROCHA nlepqt2365-84-16G55:15:00V.[id number] lable for patient mqgbDCHAWXASOWSDSB0216-54-41G68:57:13 [facility] 2021-12-24 08:57:00 [id number] wLdmHXTefPvOJOJNu2zGxkYBvXx+/ vex3MbfgEXguRhul7mXv7gR7mh+6546-92-57W91:57:00 [facility] ([facility]ANBrief Op NoeREPORT#:[id number] REPORT STATUS: SignedDATE:12/24/21 TIME: 0857 PATIENT: BUTCH ROCHA UNIT #: [id number]#: [id number] ROOM/BED:: 65 AGE: 56 SEX: F ATTEND: José Miguel Padilla AUTHOR: José Miguel Padilla MD * ALL edits or amendments must be made on the electronic/computer document * Op/Inv Proc Note - BriefPre-procedure diagnosis:back lipoma and skin molesPost-procedure diagnosis: same as pre procedure dxProcedures performed:excision of back lipoma and skin neviPrimary Surgeon:RandyAssistant(s): noneFindings:lipoma right upper back and skin moles in mid and left upper backComplications: noneEstimated blood loss in ml's: 5 ccSpecimens removed/altered: lipoma and nevi at 0859 RPT #:[id number] OF REPORTOPOperative pxekdl9717-01-43Y91:57:00V.IYGO45908913-3480EDVgp ilable for patient tgldMXEINNYXUSUWNA0570-68-86Q64:59:41 [facility]
[2023-10-13 15:16] LABS: Hematocrit 39.3 % (36.0-45.0); MCV 96.3 fL (80-100); MPV 7.2 fL (7.6-11.3); Platelets 344 thou/uL (152-406); RBC Red Blood Cell Count 4.08 M/uL (3.86-4.86)
[2023-10-13 15:30] LABS: Protime INR 1.34
[2023-10-13 15:33] LABS: Albumin 3.5 g/dL (3.4-5.0); Bilirubin Direct 0.2 mg/dL (0-0.2); Bilirubin Indirect, Calculated 0.4 mg/dL (0.2-0.8); Bilirubin Total 0.6 mg/dL (0.2-1.0); Magnesium 2.1 mg/dL (1.6-2.4); Potassium 3.7 mEq/L (3.5-5.1); Protein, Total 7.4 g/dL (6.4-8.2); Troponin High Sensitivity 5.8 pg/mL (<58.9)
--- NOTE | 2023-10-13 15:44 | RAD REPORT ---
EXAM DESCRIPTION: Tamara Single View10/13/2023 2:21 pm CLINICAL HISTORY: edema COMPARISON: No comparisons TECHNIQUE: Portable AP view of the chest. FINDINGS: The lungs are clear. No pneumothorax or effusion. The cardiomediastinal contours are unre markable. IMPRESSION: No acute cardiopulmonary process.
--- NOTE | 2023-10-13 15:45 | RAD REPORT ---
EXAM DESCRIPTION: US - Extremity Venous Uni Ltd - 10/13/2023 2:40 pm CLINICAL HISTORY: Pain, swelling COMPARISON: None. TECHNIQUE: Real-time sonographic evaluation of the right lower extremity deep venous system was perf ormed. FINDINGS: Normal compressibility, flow augmentation, phasic flow and spontaneous flow is identified in the right lower extremity deep venous system. No intraluminal filling defects seen. IMPRESSION: No DVT in the right lower extremity.
--- NOTE | 2023-10-13 15:50 | RAD REPORT ---
EXAM DESCRIPTION: US - Extremity Nonvascular Limited - 10/13/2023 2:40 pm CLINICAL HISTORY: Pain;Swelling COMPARISON: BREAST/AXILLA, COMPLETE dated 04/20/2023 TECHNIQUE: Sonographic grayscale and color flow images of the right lower leg were obtained. FINDINGS: Superficial subcutaneous heterogeneous collection of fluid and debris, measuring 3.9 x 3.6 x 1.8 cm, with adjacent fat hyperechogenicity and mild hypervascularity peripherally. IMPRESSION: Superficial subcutaneous heterogeneous collection, suggestive of hematoma, measuring 3.9 cm. Possibility of superimposed infection cannot be entirely excluded.
--- NOTE | 2023-10-13 17:53 | EDPHYS ---
Physician Documentation [facility] Name: Carmen Rocha Age: 58 yrs Sex: Female : 1965 Arrival Date: 10/13/2023 Time: 13:54 Bed 8 Private MD: Rios Cueto ED Physician Karthik Thomas HPI: 10/13 14:30 This 58 yrs old Female presents to ER via Ambulatory with complaints of Leg Pain. cp 14:30 The patient presents with pain, that is acute, swelling, tenderness. The complaints cp affect the right roy. Context: Patient reports bucket striking right lower leg about 3 weeks ago. C/o increased pain and now noticing redness and warmth. Concerned about possible DVT. Historical: - Allergies: 14:04 No Known Allergies; ll1 - PMHx: 14:04 blood clot leg; back problems; spinal stenosis; Hypothyroidism; ll1 - PSHx: 14:04 weight loss surgery; Cholecystectomy; L ankle SX repair; ll1 - Immunization history:: Adult Immunizations up to date. - Social history:: Smoking status: Patient reports the use of cigarette tobacco products, smokes one pack cigarettes per day. ROS: 14:33 Constitutional: Negative for body aches, chills, fever, poor PO intake, cp 14:33 Eyes: Negative for injury, pain, redness, and discharge, cp 14:33 ENT: Negative for drainage from ear(s), ear pain, sore throat, difficulty swallowing, difficulty handling secretions, 14:33 Cardiovascular: Positive for edema, Negative for chest pain, palpitations, 14:33 Respiratory: Negative for cough, shortness of breath, wheezing, 14:33 Abdomen/GI: Negative for abdominal pain, nausea, vomiting, and diarrhea, 14:33 Back: Negative for pain at rest, pain with movement, 14:33 MS/extremity: Positive for erythema, pain, swelling, tenderness, of the right roy, 14:33 Neuro: Negative for altered mental status, dizziness, headache, syncope, weakness, 14:33 All other systems are negative, Exam: 14:35 Constitutional: The patient appears in no acute distress, alert, awake, non-toxic, well cp developed, well nourished, obese, uncomfortable, 14:35 Head/Face: Normocephalic, atraumatic. cp 14:35 Eyes: Periorbital structures: appear normal, Conjunctiva: normal, no exudate, no injection, Sclera: no appreciated abnormality, Lids and lashes: appear normal, bilaterally, 14:35 ENT: External ear(s): are unremarkable, Nose: is normal, Mouth: Lips: moist, Oral mucosa: moist, Posterior pharynx: Airway: no evidence of obstruction, patent, 14:35 Chest/axilla: Inspection: normal, 14:35 Cardiovascular: Rate: normal, Rhythm: regular, 14:35 Respiratory: the patient does not display signs of respiratory distress, Respirations: normal, no use of accessory muscles, no retractions, labored breathing, is not present, Breath sounds: are clear throughout, no decreased breath sounds, no stridor, no wheezing, 14:35 Abdomen/GI: Exam negative for discomfort, distension, guarding, Inspection: obese 14:35 Back: pain, is absent, ROM is normal, 14:35 Musculoskeletal/extremity: Extremities: grossly normal except: noted in the right lower leg: increased swelling, moderate anterior erythema, area of induration and marked tenderness to palpation, Pulses: noted to be 2+ in the right dorsalis pedis artery, 14:35 Neuro: Orientation: to person, place \T\ time. Mentation: is normal, 14:52 ECG was reviewed by the Attending Physician. cp Vital Signs: 14:02 BP 124 / 83; Pulse 81; Resp 18; Temp 98.7; Pulse Ox 100% ; Pain 10/10; ll1 14:58 BP 117 / 65; Pulse 62; Resp 18; Pulse Ox 99% on R/A; Pain 9/10; ld1 15:50 BP 117 / 67; Pulse 65; Resp 18; Pulse Ox 92% ; ld1 14:02 Pain Scale: Adult ll1 14:58 Pain Scale: Adult ld1 Procedures: 17:55 I \T\ D: Incision and drainage was performed for an abscess of the right roy Prepped cp with Betadine, Anesthetized with ml's 2% Lidocaine with epinephrine. 8 ml's 2% Lidocaine with epinephrine. Incised with #11 blade. Drained moderate amount bloody fluid. Packed with iodoform gauze, Dressing: sterile 4x4 gauze, the patient tolerated the procedure well. MDM: 14:02 Patient medically screened. cp 15:00 Differential diagnosis: contusion, hematoma, abscess, cellulitis. cp 17:52 Data reviewed: vital signs, nurses notes, lab test result(s), EKG, radiologic studies, cp plain films, ultrasound. 17:52 Consideration of Admission/Observation Escalation of care including cp admission/observation considered. I considered the following discharge prescriptions or medication management in the emergency department Medications were administered in the Emergency Department. See MAR. Counseling: I had a detailed discussion with the patient and/or guardian regarding the historical points, exam findings, and any diagnostic results supporting the discharge/admit diagnosis, lab results, radiology results, the need for outpatient follow up, a general surgeon, to return to the emergency department if symptoms worsen or persist or if there are any questions or concerns that arise at home. Response to treatment: the patient's symptoms have mildly improved after treatment, and as a result, I will discharge patient. 10/13 14:09 Order name: Basic Metabolic Panel; Complete Time: 15:42 10/13 15:42 Interpretation: Normal except: GFR 69. 10/13 14:09 Order name: CBC with Diff; Complete Time: 15:30 10/13 14:09 Order name: LFT's; Complete Time: 15:42 10/13 14:09 Order name: Magnesium; Complete Time: 15:42 10/13 14:09 Order name: NT PRO-BNP; Complete Time: 15:42 10/13 14:09 Order name: PT-INR; Complete Time: 15:30 10/13 14:09 Order name: Troponin HS; Complete Time: 15:42 10/13 14:09 Order name: XRAY Chest (1 view); Complete Time: 16:02 10/13 16:02 Interpretation: Report review. 10/13 14:09 Order name: US Extremity Venous Unilateral Ltd; Complete Time: 16:02 10/13 16:02 Interpretation: Report reviewed. 10/13 14:09 Order name: US Extrmty Nonvasular Limited: anterior right lower leg for possible cp abscess; Complete Time: 16:02 10/13 16:03 Interpretation: Report reviewed. 10/13 14:09 Order name: EKG; Complete Time: 14:09 10/13 14:09 Order name: Cardiac monitoring; Complete Time: 14:57 10/13 14:09 Order name: EKG - Nurse/Tech; Complete Time: 14:57 cp 10/13 14:09 Order name: IV Saline Lock; Complete Time: 14:57 cp 10/13 14:09 Order name: Labs collected and sent; Complete Time: 14:57 cp 10/13 14:09 Order name: O2 Per Protocol; Complete Time: 14:17 cp 10/13 14:09 Order name: O2 Sat Monitoring; Complete Time: 14:17 cp 10/13 16:19 Order name: I\T\D Setup; Complete Time: 16:28 cp EC:52 Rate is 59 beats/min. Rhythm is regular. [place] interval is normal. QRS interval is normal. cp QT interval is normal. T waves are Inverted in lead aVR. Interpreted by me. Reviewed by me. Administered Medications: 15:45 Drug: fentaNYL (PF) IVP 25 mcg IVP once Route: IVP; Site: right antecubital; ld1 15:45 Drug: Ketorolac IVP 15 mg IVP once Route: IVP; Site: right antecubital; ld1 16:01 Drug: Trimethoprim-Sulfamethoxazole PO (160 mg-800 mg (DS) 2 tablet PO once Route: PO; ld1 16:01 Drug: Rocephin IV 2 grams IV at calculated rate once; Given slow IV push per pharmarcy ld1 instructions Route: IV; Rate: calculated rate; Site: right antecubital; 17:00 Drug: Lidocaine Infiltration (2 %) 10 ml 5 ml Infiltration once; to bedside with ld1 epinephrine {Note: administered by TYLER Melvin 170.} Volume: 5 ml; Route: Infiltration; 17:21 Drug: fentaNYL (PF) IVP 50 mcg IVP once Route: IVP; Site: right antecubital; rs5 Disposition Summary: 10/13/23 17:52 Discharge Ordered Notes: Location: Home cp Problem: new cp Symptoms: have improved cp Condition: Stable cp Diagnosis - Cellulitis of right lower limb cp - Hematoma of Right Lower Leg cp Followup: cp - With: Arian Boston MD - When: 2 - 3 days - Reason: Wound Recheck Discharge Instructions: - Discharge Summary Sheet cp - Cellulitis, Adult cp - Hematoma cp Forms: - Medication Reconciliation Form cp - Thank You Letter cp - Antibiotic Education cp - Prescription Opioid Use cp - Patient Portal Instructions cp - Leadership Thank You Letter cp Prescriptions: - Cephalexin 500 mg Oral Capsule - take 1 capsule ORAL route every 6 hours for 10 days; 40 capsule; Refills: 0, cp Product Selection Permitted - Bactrim DS 800-160 mg Oral Tablet - take 1 tablet ORAL route every 12 hours for 10 days; 20 tablet; Refills: 0, cp Product Selection Permitted Signatures: Dispatcher [employer] EDSamy Bray PA PA cp Lewis, Lynsay, RN RN ll1 Leisa Aggarwal RN RN ld1 Jeremy Mello RN RN rs5
--- NOTE | 2023-10-13 17:53 | ER ---
Nurse's Notes [facility] Name: Carmen Rocha Age: 58 yrs Sex: Female : 1965 Arrival Date: 10/13/2023 Time: 13:54 Bed 8 Private MD: Rios Cueto Diagnosis: Cellulitis of right lower limb;Hematoma of Right Lower Leg Presentation: 10/13 14:02 Chief complaint: Patient states: Fell with a bucket 3 weeks ago. Abrasion to R leg. ll1 Site is now, red swollen, infected getting worse since. On antibiotics, not getting better. Coronavirus screen: Client denies travel out of the [place] in the last 14 days. At this time, the client does not indicate any symptoms associated with coronavirus-19. Ebola Screen: Patient denies travel to an Ebola-affected area in the 21 days before illness onset. Initial Sepsis Screen: Does the patient meet any 2 criteria? No. Patient's initial sepsis screen is negative. Does the patient have a suspected source of infection? Yes: Skin breakdown/wound. Risk Assessment: Do you want to hurt yourself or someone else? Patient reports no desire to harm self or others. Onset of symptoms was September 22, 2023. 14:02 Method Of Arrival: Ambulatory ll1 14:02 Acuity: NIKKI 3 ll1 Triage Assessment: 14:05 General: Appears uncomfortable, Behavior is calm, cooperative, appropriate for age. ll1 Pain: Complains of pain in right leg Pain currently is 10 out of 10 on a pain scale. Quality of pain is described as aching, throbbing. Derm: Abscess located on right leg is hot to touch, is red. Musculoskeletal: Circulation, motion, and sensation intact. Capillary refill < 3 seconds, Swelling present in right leg. Historical: - Allergies: 14:04 No Known Allergies; ll1 - PMHx: 14:04 blood clot leg; back problems; spinal stenosis; Hypothyroidism; ll1 - PSHx: 14:04 weight loss surgery; Cholecystectomy; L ankle SX repair; ll1 - Immunization history:: Adult Immunizations up to date. - Social history:: Smoking status: Patient reports the use of cigarette tobacco products, smokes one pack cigarettes per day. Screenin:58 [facility] ED Fall Risk Assessment (Adult) History of falling in the last 3 months, ld1 including since admission No falls in past 3 months (0 pts). Abuse screen: Denies threats or abuse. Denies injuries from another. Nutritional screening: No deficits noted. Tuberculosis screening: No symptoms or risk factors identified. Assessment: 14:58 General: Appears in no apparent distress. comfortable, Behavior is calm, cooperative, ld1 appropriate for age. Pain: Complains of pain in right leg Pain does not radiate. Pain currently is 8 out of 10 on a pain scale. Quality of pain is described as throbbing, Pain began 2-3 days ago. Is continuous. Neuro: Level of Consciousness is awake, alert, obeys commands, Oriented to person, place, time, situation. Cardiovascular: Capillary refill < 3 seconds Patient's skin is warm and dry. Respiratory: Airway is patent Respiratory effort is even, unlabored. GI: Abdomen is round obese. : No signs and/or symptoms were reported regarding the genitourinary system. EENT: No signs and/or symptoms were reported regarding the EENT system. Derm: No signs and/or symptoms reported regarding the dermatologic system. Musculoskeletal: No signs and/or symptoms reported regarding the musculoskeletal system. 16:54 Reassessment: ERP at bedside providing care to right lower leg. ld1 17:35 Reassessment: Patient appears in no apparent distress at this time. No changes from ld1 previously documented assessment. Patient and/or family updated on plan of care and expected duration. Pain level reassessed. Patient is alert, oriented x 3, equal unlabored respirations, skin warm/dry/pink. Derm: No deficits noted. Vital Signs: 14:02 BP 124 / 83; Pulse 81; Resp 18; Temp 98.7; Pulse Ox 100% ; Pain 10/10; ll1 14:58 BP 117 / 65; Pulse 62; Resp 18; Pulse Ox 99% on R/A; Pain 9/10; ld1 15:50 BP 117 / 67; Pulse 65; Resp 18; Pulse Ox 92% ; ld1 14:02 Pain Scale: Adult ll1 14:58 Pain Scale: Adult ld1 ED Course: 13:57 Patient arrived in ED. mr 13:57 Rios Cueto MD is Private Physician. mr 14:02 [facility]. cp 14:02 Karthik Thomas MD is Attending Physician. cp 14:04 Triage completed. ll1 14:08 Arm band placed on. ll1 14:17 Leisa Aggarwal, NOREEN is Primary Nurse. ld1 14:21 XRAY Chest (1 view) In Process Unspecified. EDMS 14:42 US Extremity Venous Unilateral Ltd In Process Unspecified. EDMS 14:42 US Extrmty Nonvasular Limited: anterior right lower leg for possible abscess In Process EDMS Unspecified. 14:57 Inserted saline lock: 20 gauge in right antecubital area, using aseptic technique. ld1 Blood collected. 14:58 Patient has correct armband on for positive identification. Placed in gown. Bed in low ld1 position. Call light in reach. Side rails up X2. quality assurance monitor on. Pulse ox on. NIBP on. Door closed. Noise minimized. Warm blanket given. 14:58 No provider procedures requiring assistance completed. ld1 17:51 Arian Boston MD is Referral Physician. cp 17:58 IV discontinued, intact, bleeding controlled, No redness/swelling at site. ld1 Administered Medications: 15:45 Drug: fentaNYL (PF) IVP 25 mcg IVP once Route: IVP; Site: right antecubital; ld1 15:45 Drug: Ketorolac IVP 15 mg IVP once Route: IVP; Site: right antecubital; ld1 16:01 Drug: Trimethoprim-Sulfamethoxazole PO (160 mg-800 mg (DS) 2 tablet PO once Route: PO; ld1 16:01 Drug: Rocephin IV 2 grams IV at calculated rate once; Given slow IV push per pharmarcy ld1 instructions Route: IV; Rate: calculated rate; Site: right antecubital; 17:00 Drug: Lidocaine Infiltration (2 %) 10 ml 5 ml Infiltration once; to bedside with ld1 epinephrine {Note: administered by TYLER Melvin 170.} Volume: 5 ml; Route: Infiltration; 17:21 Drug: fentaNYL (PF) IVP 50 mcg IVP once Route: IVP; Site: right antecubital; rs5 Medication: 14:58 VIS not applicable for this client. ld1 Outcome: 17:52 Discharge ordered by . cp 17:58 Discharged to home ambulatory, ld1 17:58 Condition: stable 17:58 Discharge instructions given to patient, Instructed on discharge instructions, follow up and referral plans. medication usage, Demonstrated understanding of instructions, follow-up care, medications, Prescriptions given X 2, 17:58 Patient left the ED. ld1 Signatures: Dispatcher [employer] EDMS Janie Cerna, Syd Velarde mr Saym Jamison PA PA cp Lewis, Lynsay RN RN ll1 Leisa Aggarwal RN RN ld1 Jeremy Mello RN RN rs5
[2023-10-13 18:12] VITALS: BP 117/67; TEMP 98.7; O2SAT 92
--- NOTE | 2023-10-16 14:38 | EKG ---
Test Date: 2023-10-13 Test Time: 14:45:30 Measuring Clerk: Evelyn SI MEASUREMENT RESULTS: Intervals: Rate: 59 AK: 138 QRSD: 88 QT: 408 QTc: 403 [place]: P: 79 AK: 138 QRS: 97 T: 51 INTERPRETIVE STATEMENTS: Sinus bradycardia Low voltage QRS Borderline ECG No previous ECG available for comparison Electronically Signed On 10-16-23 14:29:39 MANAGER COSTING by Sarwat Marsh
== END ==
LOC: ER 13:54
PROC: 0H9KXZZ Drainage of Right Lower Leg Skin, External Approach (ICD-10-PCS; principal; 2023-10-13)
DX: L03.115 Cellulitis of right lower limb (principal); F17.210 Nicotine dependence, cigarettes, uncomplicated
CPT/HCPCS: 85025; 80048; 36415; 83735; 85610; 80076; 84484; 83880; 71045; 93971; 76882; 10060; J3010 ×2; J0696; 93005

== ENCOUNTER 2023-12-09 00:25 | Emergency (ER) | payer OTHER ==
--- OUTSIDE RECORDS SUMMARY | 2023-12-09 00:29 | XMS REPORT | Continuity of Care Document ---
Author Name Unknown Address [address] [place] [address] [facility] thconnect Address [address] [place] [address] Care Team Providers Care Senior Recruitment Consultant Name Role Phone Rios Cueto Fern Primary Care Physician [phone] Doctor Unassigned, [place] Attending Clinician U José Miguel Hendricks Attending Clinician Unavailable CAROLA MEYERS Attending Clinician Unavailable Carola Meyers MD Attending Clinician [phone] Lisa Croft NP Attending Clinician + [phone] LISA CROFT Attending Clinician Unavaila ble GC_TFCLLC_Giles_M Attending Clinician UnavailAria Garcia Attending Clinician [phone] FANI HILLIARD Attending Clinician Unavailable SHAHLA COLON Attending Clinician Unavail able YESSENIA CARTWRIGHT Attending Clinician Unavailable SHAHLA COLON Attending Clinician Unavail José Miguel Grace Admitting Clinician Unavailable CAROLA MEYERS Admitting Clinician Unavailable Aria Olson Admitting Clinician Unavailabl e GC_TFCLLC_Giles_M Admitting Clinician UnavailFANI Lowery Admitting Clinician Unavailable SHAHLA COLON Admitting Clinician Unavail able YESESNIA CARTWRIGHT Admitting Clinician Unavailable Payers Payer Name Policy Type Policy Number Effective Date Expirati on Date Source [facility] [place]MED[place]PLAC[place] - [place]) [id number] 1959 00:00:00 Problems Condition Name Condition Details Condition Category Status Onset Date Resolution Date Last Treatment Date Treating Clinician Comments Source Severe obesity Severe Obesity Problem Active 418 00:00: 00 [facility] Lymphocyto sis Lymphocyto sis Problem Active 418 00:00: 00 [facility] Allergic rhinitis Allergic Rhinitis Problem Active 418 00:00: 00 [facility] Acute dermatitis Acute [...] active problems No known active problems Disease [facility] History of Past Illness Condition Name [...] s DA Active U 12-20 00:00: 00 [facility] NO KNOWN ALLERGIE S Drug Class Active [facility] No Known Drug Allergie s DA Active [facility] (LUF/[facility] V/SA[facility] Social History Social Habit Start Date Stop Date Quantity Comments Source Gender identity [facility] of tobacco use Cigarette Smoker [facility] History SDOH Alcohol Frequency [facility] History SDOH Alcohol Std Drinks [facility] History SDOH Alcohol Binge [facility] Exposure to SARS-CoV-2 (event) 2022-04-10 00:00:00 2022-04-20 11:51:00 Not sure [facility] History of Social function 2022-04-20 00:00:00 2022-04-20 00:00:00 [facility] Cigarettes smoked current (pack per day) - Reported 2022-04-20 00:00:00 2022-04-20 00:00:00 [facility] Cigarette pack-years 2022-04-20 00:00:00 2022-04-20 00:00:00 [facility] Tobacco use and exposure 2022-04-20 00:00:00 2022-04-20 00:00:00 Smokeless tobacco non-user [facility] Alcohol intake 2022-04-20 00:00:00 2022-04-20 00:00:00 Current drinker of alcohol (finding) [facility] Alcohol Comment 2022-04-20 00:00:00 2022-04-20 00:00:00 occasionally [facility] Sex Assigned At 1965 00:00:00 1965 00:00:00 [facility] Smoking Status Start Date Stop Date Source Smokes tobacco daily 2022-04-20 00:00:00 [facility] Medications Ordered Medication Name Filled Medication Name Start Date Stop Date Current Medication? Ordering Clinician Indication Dosage Frequency Signature (SIG) Comments Components Source POTASSIUM-9 9 ORAL 04-21 12:01: 50 Yes Take by mouth. [facility] furosemide 20 mg tablet 04-19 00:00: 00 Yes [facility] PROAIR HFA 90 mcg/actuati on inhaler 04-01 00:00: 00 Yes 2{puff} Inhale 2 Puffs every 4 (four) hours. [facility] ergocalcife rol, vitamin d2, 1,250 mcg (50,000 unit) capsule 04-01 00:00: 00 Yes TAKE 1 CAPSULE BY MOUTH EVERY WEEK [facility] gabapentin 800 mg tablet 04-01 00:00: 00 Yes 800mg Take 800 mg by mouth in the morning and 800 mg at noon and 800 mg in the evening. [facility] methocarbam oL 500 mg tablet 04-01 00:00: 00 Yes 500mg Take 500 mg by mouth in the morning and 500 mg at noon and 500 mg in the evening. [facility] levothyroxi ne 200 mcg tablet 04-01 00:00: 00 Yes 200ug Take 200 mcg by mouth. [facility] DULoxetine 60 mg capsule 04-01 00:00: 00 Yes 60mg Take 60 mg by mouth in the morning. [facility] Ibuprofen 800 MG Oral Tablet Ibuprofen 800 MG Oral Tablet Yes 800mg Q7.00H orally 3 to 4 times per day as needed. (as needed for pain) [facility] (LUF/LI V/SA) Saxenda 3 mg/0.5 mL (18 mg/3 mL) [...] 2.4 mg everyday for the fourth week [facility] triamcinolo ne acetonide 0.1 % topical cream [...] Name Observation Time Observation Value Comments S ource Systolic blood pressure 2022-04-20 16:52:00 108 mm[Hg] [facility] Diastolic blood pressure 2022-04-20 16:52:00 75 mm[Hg] [facility] Heart rate 2022-04-20 16:52:00 59 /min [facility] Body temperature 2022-04-20 16:52:00 36.56 Paril [facility] Respiratory rate 2022-04-20 16:52:00 18 /min [facility] Body height 2022-04-20 16:52:00 157.5 cm [facility] Oxygen saturation in Arterial blood by Pulse oximetry 2022-04-20 16:52:00 95 /min [facility] BP Diastolic 2021-11-29 00:00:00 70 [...] KG Body Temperature 2019-10-31 18:26:00 98.4 [degF] [facility] (LUF/ROSEMARIE/SA) Pulse Rate 2019-10-31 18:26:00 84 /min [facility] Respiratory Rate 2019-10-31 18:26:00 18 /min [facility] (LUF/ROSEMARIE/SA) O2% BldC Oximetry 2019-10-31 18:26:00 95 % [facility] (LUF/ROSEMARIE/SA) BP Systolic 2019-10-31 18:26:00 175 mm[Hg] [facility] (LUF/ROSEMARIE/SA) BP Diastolic 2019-10-31 18:26:00 101 mm[Hg] [facility] (LUF/ROSEMARIE/SA) Height 2019-10-31 18:26:00 61 [in_i] [facility] (LUF/ROSEMARIE/SA) Weight 2019-10-31 18:26:00 137.8 kg [facility] (LUF/ROSEMARIE/SA) BMI (Body Mass Index) 2019-10-31 18:26:00 58.1 kg/m2 [facility] (LUF/ROSEMARIE/SA) Body Temperature 2019-02-19 21:35:00 98.9 F [facility] (LUF/ROSEMARIE/SA) Pulse Rate 2019-02-19 21:35:00 86 /min [facility] (LUF/ROSEMARIE/SA) Respiratory Rate 2019-02-19 21:35:00 18 /min [facility] (F/ROSEMARIE/SA) O2% BldC Oximetry 2019-02-19 21:35:00 97 % [facility] (LUF/ROSEMARIE/SA) BP Systolic 2019-02-19 21:35:00 125 mm[Hg] [facility] (LUF/ROSEMARIE/SA) BP Diastolic 2019-02-19 21:35:00 80 mm[Hg] [facility] (LUF/ROSEMARIE/SA) Height 2019-02-19 21:31:00 62 in [facility] (LUF/ROSEMARIE/SA) Weight Measured 2019-02-19 21:31:00 288.14 lbs [facility] (LUF/ROSEMARIE/SA) BMI (Body Mass Index) 2019-02-19 21:31:00 53 kg/m2 [facility] (LUF/ROSEMARIE/SA) Procedures Procedure Date / Time Performed Performing Clinician Source REFERRAL- REQUEST/RESPONSE 2023-02-28 05:01:00 Brain wilson Unassigned, [place] [facility] [id number] 2022-09-19 00:00:00 [facility] [id number] 2022-09-16 00:00:00 [facility] [id number] 2022-09-16 00:00:00 LAMDA [facility] [id number] 2022-09-16 00:00:00 LAMDA [facility] US PELVIS COMPLETE WITH TRANSVAGINAL 2022-05-09 20:36:00 Carola Meyers [facility] POCT URINALYSIS 2022-04-20 17:07:00 Carola Meyers [facility] Neuro[facility] Sp[facility] Cord Tissue [facility] Medical Encounters Start Date/Time End Date/Time Encounter Type Admission Type Attending Clinicians Care Facility Care Department Encounter ID Source 2023-02-28 00:00:00 2023-02-28 00:00:00 Orders Only Doctor Unassigned, [place] [facility] [id number] [id number] [id number] [id number] [facility] 2022-10-24 08:49:00 2022-10-24 08:49:00 Outpatient José Miguel Grove [facility] RADI [id number] [facility] 2022-09-29 11:28:00 2022-09-29 11:28:00 Outpatient José Miguel Grove [facility] CPUL [id number] [facility] 2022-09-16 16:26:00 2022-09-22 16:57:00 Inpatient José Miguel [place] MED [id number] [facility] 2022-07-18 10:28:00 2022-07-18 10:28:00 Outpatient José Miguel Grove [facility] DIAB [id number] [facility] 2022-07-18 09:16:00 2022-07-18 09:16:00 Outpatient José Miguel Grove [facility] RADI [id number] [facility] 2022-06-17 12:44:00 2022-06-17 12:44:00 Outpatient José Miguel Grove [facility] DIAB [id number] [facility] 2022-05-09 14:10:44 2022-05-09 23:59:00 Outpatient CAROLA [facility] [id number] [facility] 2022-05-09 14:10:44 2022-05-09 23:59:00 Hospital Encounter AdCarola hung [facility] [id number] [id number] [id number] [id number] [facility] 2022-04-20 11:00:00 2022-04-20 12:24:36 Office Visit Carola Meyers Cheryal [facility] 1.20.114 [id number] 4.2.7.2.686 [id number] [facility] 2022-04-20 11:00:00 2022-04-20 12:24:36 Outpatient R LISA CROFT [facility] [id number] [facility] 2022-04-20 11:00:00 2022-04-20 12:24:36 Outpatient R LISA CROFT [facility] [id number] [facility] 2022-04-20 00:00:00 2022-04-20 00:00:00 Orders Only Doctor Unassigned, [place] [facility] [id number] 350.1.13.10 4.2.7.2.686 [id number] [facility] 2022-04-20 00:00:00 2022-04-20 00:00:00 Telephone AdCarola hung [facility] 1.20.114 350.1.13.10 4.2.7.2.686 [id number] [facility] 2021-12-24 06:43:00 2021-12-24 06:43:00 Outpatient José Miguel Grove [facility] [id number] [facility] 2021-11-30 03:38:00 2021-11-30 03:38:00 Outpatient GC_TFCLLC_G iles_M PRIV PRIV [id number] [facility] 2021-11-29 04:52:00 2021-11-29 04:52:00 Outpatient GC_TFCLLC_G iles_M PRIV PRIV [id number] [facility] 2021-11-29 00:00:00 2021-11-29 00:00:00 Aria Olson MD: [address], [place] [address] , Ph. [facility] GC_TFCLLC_P [facility]* [id number] [facility] 2021-11-29 00:00:00 2021-11-29 00:00:00 Outpatient Aria Olson [facility] [id number] 2021-11-22 04:08:00 2021-11-22 04:08:00 Outpatient GC_TFCLLC_G iles_M [facility] PRIV [id number] [facility] 2019-10-31 18:20:00 2019-10-31 20:06:00 UNS PHYSL FX LOW RAD LT SUB FX RTN [address] [facility] [id number] [facility] (LUF/LI V/SA) 2019-02-19 21:24:00 2019-02-19 23:06:00 LOW BACK PAIN E SHAHLA COLON [facility], [address] [place] [address] [facility] [id number] [facility] (LUF/LI V/SA) Results Test Description Test Time Test Comments Results Resul t Comments Source - XR UGI DBL CONTRAST 2022-10-24 10:31:00 [facility])Name: BUTCH ROCHA : 1965 Sex: F FAX: José Miguel Smith MD [phone] [place]: St: REG Name: BUTCH ROCHA [facility] : 1965 Age/S: 57/F [address] [facility] Unit #: [id number] Loc: [place] [address] Phys: José Miguel Padilla MD Acct: [id number] Dis Date: Status: REG CLI PHONE #: [phone] Exam Date: 10/24/2022956 FAX #: [phone] Reason: POST SLEEVE GASTRECTOMY DYSPHAGIA EXAMS: CPT CODE: [id number] XR UGI DBL CONTRAST 92956 HISTORY: Post gastric sleeve and dysphasia. COMPARISON: [...] M.D. CC: José Miguel Padilla MD Technologist: ZULEIKA LOZANO RT(R) Trnscrd Date/Time/By: 10/24/2022 (6898) : By: [email or web address] Orig Print D/T: S: 10/24/2022 (8590) PAGE 1 Signed Report CBC W/AUTO [id number] 05:44:00* Test Item Value Reference Range Interpretation [...] c ode = MDIFF) NO BASIC METABOLIC [id number] 05:37:00* Test Item Value Reference Range Interpretation [...] CA) 7.9 mg/dL 8.5-10.1 L CBC W/AUTO [id number] 05:33:00* Test Item Value Reference Range Interpretation [...] code = NRBC#) 0.00 K/mm3 0.0-0.1 N [id number] 15:35:00* Test Item Value Reference Range Interpretation Comme nts SURGICAL (test code = SR) R UN DATE: 09/19/22 [facility] PAGE 1 RUN TIME: 1536 Specimen Inquiry RUN USER: INTERFACE P ATIENT: BUTCH ROCHA LOC: MohitNII U #: [id number] AGE/SX: 57/F ROOM: [facility] RE09/16/22REG DR: José Miguel Padilla MD : [birth year] BED: A DIS: STATUS: ADM IN TLOC: SPEC #: [id number] RECD: 09/16/22 STATUS: MARY ANN CHERY #: [id number] GEORGE: 09/16/22- SUBM DR: José Miguel Padilla MD ENTERED: 09/16/22 SP TYPE: SURGICAL OTHR DR: Marco Anthony MD ORDERED: [id number], ANATOMIC SPEC COPIES TO: José Miguel Padilla MD [address] [place], [place] [address] Marco Anthony MD [address] [address] [place], [place] [id number] PROCEDURES: [id number] (09/16/22) TISSUES: STOMACH SUBTOTAL / TOTAL RESECTION [...] mucosa. Nomasses or perforations are grossly identified. Wind Turbine Installer sections are submitted in A1to include the stapled resection margin en face and medical center representative of the mucosa in A2. Technical component excluding immunohistochemistry is performed at [facility], [address] [place] [address] Technical component of all immunohistochemistry is performed at [facility], [address] [place] [address], [address], [place] [address] Immunohistochemistry: This test was developed and its performance characteristicsdetermined by this laboratory. It has not been approved nor does it need approval by the USFDA. Appropriate positive and negative controls are reviewed and judged to be acceptable.This laboratory is certified under the Clinical Laboratory Improvement Amendments (CLIA-88) CONTINUED ON NEXT PAGE R AMPARO DATE: 09/19/22 [facility] PAGE 2 RUN TIME: 1536 Specimen Inquiry RUN USER: INTERFACE S LULY #: [id number] PATIENT: BUTCH ROCHA #[id number] (Continued) GROSS DESCRIPTION (Continued) as qualified to perform high complexity clinical laboratory testing. Unless gross only, the diagnosis is based upon microscopic examination. CLINICAL INFORMATION COLLECTION DATE: 09/16/2022 --------- Signed SIGNATURE ON FILE Pebbles Kearns 09/19/22 1535 END OF REPORT - XR UGI SNGL [id number] 09:34:00 [facility] 1965 Sex: F FAX: Y José Miguel Padilla MD [phone] [place]: B St: ADM Name: JADIELBUTCH SERRANO [facility] : 1965 Age/S: 57/F [address] [facility] Unit #: [id number] Loc: V.3039 [place] [address] Phys: Lucila Padilla MD Acct: [id number] Dis Date: Status: ADM IN PHONE #: [phone] Exam Date: 09/19/2022835 FAX #: [phone] Reason: post sleeve gastrectomy dysphagia EXAMS: CPT CODE: [id number] XR UGI SNGLCONTRAST 89813 EXAMINATION: - XR UGI SNGL CONTRAST. HISTORY: post sleeve gastrectomy dysphagia. COMPARISON: None. TECHNIQUE: Upper GI examination was performed with the oral administration of barium.Fluoroscopy Time: 1.3 minutes Number of Images: 3 FINDINGS: Views of the esophagus demonstrated no evidence of obstruction, perforation, or stricture. There is delayed passage of contrast through thegastroesophageal junction. Additionally there was spasming as well [...] the esophagus and tertiary esophageal contractions. Location: [facility] at 0934 Reported and signed by: Eliud Baptiste MD CC: José Miguel Padilla MD Technologist: RT ROSA ELENA(Justice) Trnscrd Date/Time/By: 09/19/2022 (1663) : By: [email or web address] Orig Print D/T: S: 09/19/2022 (6105) PAGE 1 Signed ReportBASIC METABOLIC [id number] 07:13:00* Test Item Value Reference Range Interpretation [...] CA) 7.9 mg/dL 8.5-10.1 L BASIC METABOLIC [id number] 07:53:00* Test Item Value Reference Range Interpretation Comme nts SODIUM (test code = NA) 139 mmol/L 136-145 N POTASSIUM (test code = K) 2.7 mmol/L 3.5-5.1 LL Results called t o [id number] by [id number] 09/18/22 0753Critical results verified and read back by Nurse? Y FOR ALL ICU PATIENT EXCLUDING HOLD PLEASE CALL [phone] * CHLORIDE (test code = CL) 104.0 [...] CA) 8.2 mg/dL 8.5-10.1 L CBC W/AUTO [id number] 07:45:00* Test Item Value Reference Range Interpretation [...] code = NRBC#) 0.00 K/mm3 0.0-0.1 N [id number] 15:21:00* Test Item Value Reference Range Interpretation Comme nts POTASSIUM (test code = K) 3.3 mmol/L 3.5-5.1 L [id number] 10:04:00* Test Item Value Reference Range Interpretation Comme nts MAGNESIUM (test code = MAG) 1.9 mg/dL 1.8-2.4 N SPECIMEN COMMENTS: add onCOMMENTS TO CURTAIN CUTTER HAND: add onBASIC METABOLIC PANEL 2022-09-17 06:09:00* Test Item Value Reference Range Interpretation Comme nts SODIUM (test code = NA) 139 mmol/L 136-145 N POTASSIUM (test code = K) 2.7 mmol/L 3.5-5.1 LL Results called t o [id number] by V.LAB.ALLEN 09/17/22 0609Critical results verified and read back by Nurse? YRESULT VERIFIED BY REPEAT ANALYSISFOR ALL ICU PATIENT EXCLUDING HOLD PLEASE CALL [phone] * CHLORIDE (test code = CL) 103.0 [...] CA) 7.8 mg/dL 8.5-10.1 L CBC W/AUTO [id number] 05:53:00* Test Item Value Reference Range Interpretation [...] code = NRBC#) 0.00 K/mm3 0.0-0.1 N [id number] 06:57:00* Test Item Value Reference Range Interpretation Comme nts GLUBED (test code = GLUBED) 148 mg/dL 74-106 H Performed by cer tified acid pump operator at [facility] COMPREHENSIVE METABOLIC [id number] 11:55:00* Test Item Value Reference Range Interpretation [...] due to change in reagent. CBC W/AUTO [id number] 11:38:00* Test Item Value Reference Range Interpretation [...] = MDIFF) NO - XR UGI DBL [id number] 11:38:00 [facility] 1965 Sex: F FAX: José Miguel Smith MD [phone] [place]: B St: REG Name: BUTCH ROCHA [facility] : 1965 Age/S: 56/F [address] Unit #: [id number] Loc: [place] [address] Phys: José Miguel Padilla MD Acct: [id number] Dis Date: Status: REG CLI PHONE #: [phone] Exam Date: 07/18/2022 1020 FAX #: [phone] Reason: DYSPHAGIA EXAMS: CPT CODE: [id number] XR UGI DBL CONTRAST 33673 HISTORY:Dysphagia. COMPARISON: None available Location: [facility]. Esophagus distended well. Free passage of contrast through the esophagus without constricting or constricting lesions. Motility is normal. Free passage through the GE junction. No esophagitis is noted. Mild reflux. The stomach is distended well. There is no rugal fold thickening. No ulceration is noted. Small hiatal hernia is noted. Duodenal bulb and sweep are normal. IMPRESSION: Small hiatal hernia. Mild reflux. No obstructing or constricting lesions. No esophagitis, duodenitis or gastritis. Fluoroscopy time utilized was 1 minute. Total dose of 320 mGy. 32 images were obtained. Electronically Signed by Ever Aguilar on 2at 1138 Reported and signed by: Kodi Aguilar M.D. CC: José Miguel Padilla MD Technologist: Melanie Pearce RT(R) Trnscrd Date/Time/By: 07/18/2022 (1138) : By: [email or web address] Orig Print D/T: S: 07/18/2022 (5595) PAGE 1 Signed ReportPOCT URINALYSIS W SPECIFIC [id number] 17:08:00* Test Item Value Reference Range Interpretation [...] POCT U APPEAR (test code = 3267) vladimir [facility] 13:08:00* Test Item Value Reference Range Interpretation Tika lowe SURGICAL (test code = SR) --RUN DATE: 12/27/21 [facility] PAGE 1 RUN TIME: 1309 Specimen Inquiry RUN USER: INTERFACE --PATIENT: BUTCH ROCHA LOC: SHI U #: [id number] AGE/SX: 56/F ROOM: [facility]12[facility]24[facility]: José Miguel Padilla MD : [birth year] BED: DIS: STATUS: DEP SD TLOC: -- SPEC #: [id number] RECD: 12/24/21 STATUS: MARY ANN REInocencio #: [id number] GEORGE: 12/24/[address] [facility] [address]: José Miguel Padilla MD ENTERED: 12/24/21 SP TYPE: SURGICAL OTHR DR: Aria Olson MD ORDERED: 39736, 56622/2, ANATOMIC SPEC COPIES TO: Aria Olson MD [address] [place] [address] José Miguel Padilla MD [address] [place] [address] PROCEDURES: 11812 (12/24/21-1130) 11999 (12/27/21-1306) TISSUES: A. LIPOMA B. BACK, NOS - [...] labeled, "lipoma" and consists of a wellencapsulated sonhxh-hwg-drmmmepkzw fatty tissue mass measuring 5.5 x 4.5 x 3.2 cm andweighing 43.3 g. The specimen is sectioned to reveal a homogeneous yellow-delarosa glisteningfatty cut surface with no apparent the fibrotic areas. The specimen is representativelysampled in cassette A1 B). The specimen received in formalin labeled, "large back mole" and consists of a single CONTINUED ON NEXT PAGE --RUN DATE: 12/27/21 [facility] PAGE 2 RUN TIME: 1309 Specimen Inquiry RUN USER: INTERFACE --SPEC #: [id number] PATIENT: BUTCH ROCHA #[id number] (Continued) GROSS DESCRIPTION (Continued) unoriented segment pink-delarosa [...] Technical component excluding immunohistochemistry is performed at [facility], [address] [place] [address] Technical component of all immunohistochemistry is performed at [facility], [address] [place] [address], [address], [place] [address] Immunohistochemistry: This test was developed and its [...] 1308 -- END OF REPORT COMPREHENSIVE METABOLIC [id number] 15:35:00* Test Item Value Reference Range Interpretation [...] due to change in reagent. CBC W/AUTO [id number] 15:15:00* Test Item Value Reference Range Interpretation [...] 0.0-0.1 N XR WRIST COMP MIN 3 [id number] 19:05:20PROCEDURE INFORMATION:Exam: XR Left WristExam date and [...] electronically signed by Misael Lynn MD on 12 Anv9739 7:05 PM CDT.Dictated By: Yun LYNNte: 10/31/2019 19:05[facility]ONXR WRIST COMP MIN 3 [id number] 09:06:29Procedure: XR WRIST COMP MIN 3 VWSOrder [...] AMDictated By: SATURNINO MCNAIRDate: 10/27/2019 09:00[facility] OF GROTONCULTTERRY, ANAEROBE [id number] 06:26:00ER 18Specimen: BloodCollected: 03/17/2019 23:32 Status: Final Last Updated: 03/23/2019 06:26 (1) ER 18 Culture Result (Final) (Final) No [facility], [id number] 06:26:00ER 18Specimen: BloodCollected: 03/17/2019 23:32 Status: Final Last Updated: 03/23/2019 06:26 (1) ER 18 Culture Result (Final) (Final) No Growth After 5 DaysPro[facility], BLOOD 2019-03-23 06:26:00ER 18Specimen: BloodCollected: 03/17/2019 23:30 Status: Final Last Updated: 03/23/2019 06:26 (1) ER 18 Culture Result (Final) (Final) No Growth After 5 DaysPro[facility]kinCULTURE, ANAEROBE BLOOD 2019-03-23 06:26:00ER 18Specimen: BloodCollected: 03/17/2019 23:30 Status: Final Last Updated: 03/23/2019 06:26 (1) ER 18 Culture Result (Final) (Final) No Growth After 5 DaysPro[facility] Waukesha [facility]PA [facility] QDVK2291-42-07 06:54:31ER 18Procedure: XR CHEST AP/PA 1 VIEWOrder Date: 03/17/2019 11:09 PMOrdering Provider: YESSENIA Savageinical Indication: [id number]: FeverComparison: NoneFindings:Neurostimulator leads are present.Lungs are clear. Heart size is within normal limits. No acute osseousabnormality.Impression:No acute pulmonary process.This final report was electronically signed by Dr Ros Connor MD 03/18/20196:48 AMDictated By: LUKE CONNORKDate: 03/18/2019 06:48[facility]CT ABDOMEN/PELVIS W/FIABHRKF5248-96-20 02:40:48NPO 4 hours. Do not withhold medsEXAM:CT [...] without IVcontrast is recommended for further characterization. (HindsNicholas Ball, ACR WhitePamaximilian, 2017)This Final report was electronically signed by Austyn Michele MD on 2:40 AM CDT.Dictated By: AUSTYN MICHELEte: 03/18/2019 02:40[facility] GROTONHEPATIC FUNCTION PANEL (LIVER)2019-03-18 00:16:00* Test Item Value [...] cod e = IBIL) 0.4 mg/dl 0.0-1.1 [facility]IN[facility] WITH HHGHUKCAHPN6970-16-98 23:57:00* Test Item Value Reference Range Interpretation Comme nts Color (test code = UCOLR) YELLOW Clarity (test code = UCLAR) SL CLOUDY Glucose (test code = UGLUC) NEGATIVE NEGATIVE N Bilirubin (test code = UBILI) NEGATIVE NEGATIVE N Ketones (test code = UKET) NEGATIVE NEGATIVE N Specific [place] (test code = USPGR) 1.025 1.005-1.030 A [...] code = UBACT) 1+ None Seen,Trace A [address] LAB CHEM 65579-15-77 23:46:00* Test Item Value Reference Range Interpretation Comme [facility] Sodium (test code = NA) 138 mmol/l 138-146 Potassium (test code = K) 3.5 mmol/l 3.5-4.9 Chloride (test code = CL) 104 mmol/l 98-109 IONIZED CALCIUM (test code = ICA) 1.12 CO2 (test code = CO2) 25 mmol/l 24-29 Glucose (test code = GLU) 95 mg/dl 70-105 BUN (test code = BUN) 14 mg/dl 6-17 Creatinine (test code = CREA) 0.8 mg/dl 0.6-1.[address] LAB LACTIC KXTQ4761-50-98 23:44:00* Test Item Value Reference Range Interpretation Comme nts LACTATE (test code = LAC) 0.90 mmol/l 0.90-1.[address] LAB CBC WITH AUTO WOEQ1255-95-18 23:42:00* Test Item Value Reference Range Interpretation [...] (test code = IG%) 0.4 % 0.0-0.[address] [place] [address]-LufkinURINALYSIS WITH VPGZGNNIDUP3850-86-26 22:55:00* Test Item Value Reference Range Interpretation Comme nts Color (test code = UCOLR) YELLOW Clarity (test code = UCLAR) SL CLOUDY Glucose (test code = UGLUC) NEGATIVE NEGATIVE N Bilirubin (test code = UBILI) SMALL NEGATIVE A Ketones (test code = UKET) TRACE NEGATIVE A Specific [place] (test code = USPGR) >=1.030 1.005-1.030 A [...] CAST) Rare Hyaline Cast None Seen A [facility] Notes Date/Time Note Provider Source 2022-09-29 17:18:00 [id number] YZMe3sraqg5gXm44DeyMwTdw+qjSN VjWiAYyKYkgpYLOjhw0WTi83t5u8095-84-17L82:18:26718 90017 [facility] PATIENT NAME: BUTCH ROCHA ADMIT DATE: 09/29/22ACCOUNT NO: [id number] ROOM NO: AGE: 57 REPORT TYPE: eNVL VENOUS ULTRASOUND SEX: F DATE OF : 65ADMITTING PHYSICIAN: ATTENDING PHYSICIAN:José Miguel Padilla MD *[facility]*[address] [place] [address] Lower Extremity Venous Duplex Evaluation Patient: Butch Rocha Date: 09/29/2022 BP: Location: [facility]: [id number] : 1965 Age: 57 Height: / Gender: F Weight: /BMI/BSA: / *Ordering Physician: * José Miguel PadillaInterpreting Physician: * Izaiah Marcum MD*Figure Refinisher And Repairer: * Darline Reyes RVT Indications: Swelling of [...] * * *compressible * * *+ + +----- -----+ +*L PTV/PEROV*Phasic; spontaneous; normal * *POORLY VISUALIZED. *augmentation; compressible * * *+ + +------ ----+ + Conclusions 1. There is no evidence of acute deep or superficial venous thrombosis noted in the right lower extremity.2. Study suggests acute deep vein thrombosis noted in the left popliteal vein. Prepared and electronically signed by Izaiah Marcum MD09/29/2022 17:18 at 1718 PATIENT NAME: BUTCH ROCHA lykeych3727-95-76W67:18:00V.HZH80393281-7471GUSax ilable for patient hlbqFZWSLJYYBUDHJZ6791-63-24R50:19:13 [facility] 2022-09-29 15:47:00 [id number] qt6YtSEH91dDdVUlOTI1uczDqwmnz 8sVZjaQOmNRBlw/yPVPxfITcKD41883-87-51C30:47:07221 0-0005 [facility] PATIENT NAME: BUTCH ROCHA ADMIT DATE: 09/16/22ACCOUNT NO: [id number] ROOM NO: V3039 AGE: 57 REPORT TYPE: DISCHARGE SUMMARY REPORT [...] Dictated: 09/29/2022 15:47:34Date Transcribed: 09/29/2022 21:05:15DIONICIO/ELOISE/JANNA/Sigifredo #: [id number] ID: [id number] by José Miguel Padilla MD On 10/04/2022 09:26:21 AM at 0926 PATIENT NAME: BUTCH ROCHA khecucm4957-92-60I84:05:00V.MMT47818215-3731PQDtv ilable for patient hqbjCYNRTPXGNLTWGL5536-83-91I54:27:04 [facility] 2022-09-22 12:09:00 [id number] amgl8/63THUbRHl8wmiy9QUX6TSO2 w4bw3xT24AF9aa16nCQnqljHV2/3230-61-13L66:09:00 [facility] ([facility])Hospitalist Progress NoteREPORT#:[id number] REPORT STATUS: SignedDATE:09/22/22 TIME: 1209 PATIENT: BUTCH ROCHA UNIT #: [id number]#: [id number] [address]: [birth year] AGE: 57 SEX: F ATTEND: José Miguel Padilla [facility] AUTHOR: Mayda Vo WINDSCREEN FITTER * ALL edits or amendments must be [...] 84 16 120/76 91.1 92 Room air 09/21 2328 98.2 84 15 94/56 68.5 93 Nasal cannula 09/21 2002 98.2 72 15 102/65 77.7 89 Room air 09/21 1949 94 Nasal 2 28 cannula 09/21 1556 97.9 76 18 106/70 81.8 94 Nasal cannula 24 hour I O ending at 0700: 09/22 0700 09/21 1900 Intake Total 30 Output Total Balance 30 Intake, Oral 30 PATIENT WEIGHT: Weight (lb): 134Weight (oz): 10.93Weight (kg): 61.605618 Physical ExamGeneral appearance: alert, awake, oriented, conversational, no respiratory distressHead/Eyes: atraumatic, normocephalic, PERRLACardiovascular: normal capillary refill, regular rate rhythmRespiratory: aerating well, symmetric expansionAbdomen: tenderness, softExtremities: moves all, normal capillary refillNeuro/INSPECTOR SCALES: alert, oriented X 3Skin: dry, intact Diagnosis, [...] as documented by ANP Mayda Vo. at 1303 at 2123 RPT #:[id number] OF REPORTPRProgress bdow4784-32-58L41:09:00V.JGBP57601332-5877XZVskng able for patient qtgcWYASVRRJNPWDAP8748-77-74N91:03:31 [facility] 2022-09-21 18:09:00 [id number] MSkFSeEyqib1yl7N5RMFQI7HG0+vQ ish6WMNHAWHnGsCxzK8KvoqOtWt8783-11-65W68:09:00 [facility] Progress NoteREPORT#:[id number] REPORT STATUS: SignedDATE:09/21/22 TIME: 1809 PATIENT: MOWLES,BUTCH ZACH UNIT #: [id number]#: [id number] [address] [birth year] AGE: 57 SEX: F ATTEND: José Miguel Padilla AUTHOR: José Miguel Padilla MD * ALL edits or amendments must be made on the electronic/computer document * SubjectivePatient reports:Yes: complaints (mild dysphagia), tolerating diet. Objective Physical ExamGeneral appearance: awakeAbdomen: soft ResultsFindings/Data:Laboratory Tests 09/21/22 034:[Embedded Image Not Available]Laboratory Tests 09/21 344 Chemistry Sodium (136 - 145 mmol/L) 138 [...] (Auto) (25.0 - 55.0 %) 17.5 L [place] % (Auto) (0.0 - 10.0 %) 8.6 Eos % (Auto) (0.0 - 5.0 %) 2.4 Baso % (Auto) (0.0 - 1.0 %) 0.5 Neut # (Auto) (1.8 - 7.7 K/mm3) 5.48 Lymph # (Auto) (1.0 - 5.0 K/mm3) 1.36 [place] # (Auto) (0 - 0.8 K/mm3) 0.67 Eos # (Auto) (0.0 - 0.5 K/mm3) 0.19 Baso # (Auto) (0.0 - 0.2 K/mm3) 0.04 Add Manual Diff NO Nucleated RBC % (0 - 0 %) 0.0 Nucleated RBCs # (Man) (0.0 - 0.1 K/mm3) 0.00 Diagnosis, Assessment PlanFree Text A P:Post sleeve gastritis on carafate and protonix at 1810 RPT #:[id number] OF REPORTPRProgress tobe9220-89-44S58:09:00V.VAYK93103213-3116HZZhpvk able for patient igsqHRRJBZGIVMGKWV4947-87-83T82:11:11 [facility] 2022-09-21 13:16:00 [id number] I9JO/kY3MS77Twzmcf0M4q5D8bbXc ctC3Sv3I5oahzdwVbzx5Ebo5DWr5068-24-65A80:16:00 [facility] ([facility])Hospitalist Progress NoteREPORT#:[id number] REPORT STATUS: SignedDATE:09/21/22 TIME: 1316 PATIENT: BUTCH ROCHA UNIT #: [id number]#: [id number] ROOM/BED: [facility]-ADOB: [birth year] AGE: 57 SEX: F ATTEND: José Miguel Padilla [facility] AUTHOR: Mayda Vo WINDSCREEN FITTER * ALL edits or amendments must be made on the electronic/computer document * Leannak,Mayda 09/21/22 1316:SubjectiveChief complaint:reports abd pain is improving [...] 15 100/67 77.9 95 Nasal cannula 09/20 1999 Nasal 2 cannula 09/20 1958 88 Nasal 2 28 cannula 09/20 1544 98.4 78 18 93/64 73.5 90 Room air 24 hour I O ending at 0700: 09/21 0700 09/20 1900 Intake Total 600 Output Total Balance 600 Intake, Oral 600 Patient 61.091 kg Weight PATIENT WEIGHT: Weight (lb): 134Weight (oz): 10.93Weight (kg): 61.220888 Physical ExamGeneral appearance: alert, awake, oriented, conversational, no respiratory distressHead/Eyes: atraumatic, normocephalic, PERRLACardiovascular: normal capillary refill, regular rate rhythmRespiratory: aerating well, symmetric expansionAbdomen: tenderness, softExtremities: moves all, normal capillary refillNeuro/INSPECTOR SCALES: alert, oriented X 3Skin: dry, intact ResultsFindings/Data:Laboratory Tests 09/21 034 Chemistry Sodium (136 - [...] 10.1 mg/dL) 8.1 L Laboratory Tests 09/21 0345 Hematology WBC (4.5 - 12.5 K/mm3) 7.8 [...] (Auto) (25.0 - 55.0 %) 17.5 L [place] % (Auto) (0.0 - 10.0 %) 8.6 Eos % (Auto) (0.0 - 5.0 %) 2.4 Baso % (Auto) (0.0 - 1.0 %) 0.5 Neut # (Auto) (1.8 - 7.7 K/mm3) 5.48 Lymph # (Auto) (1.0 - 5.0 K/mm3) 1.36 [place] # (Auto) (0 - 0.8 K/mm3) 0.67 [...] NAINA Vo. at 1742 at 1858 RPT #:[id number] OF REPORTPRProgress fecw4182-42-99D44:16:00V.VDMA19671885-4103CPOrtea able for patient qvvdUJAWBEQXIYFHFI3241-72-98G92:42:46 [facility] 2022-09-20 12:34:00 K19293981168f/iW9dwJ fke3HqlI3GP4cWC6vLkqD8IlbzUok 3p14ROojdQ0vQROZL9xjZH3mS7n8119-92-76C91:34:00 [facility] Progress NoteREPORT#:[id number] REPORT STATUS: SignedDATE:09/20/22 TIME: 1234 PATIENT: BUTCH ROCHA UNIT #: [id number]#: [id number] ROOM/BED: [facility]-ADOB: [birth year] AGE: 57 SEX: F ATTEND: [...] WEIGHT: Weight (lb): 134Weight (oz): 10.93Weight (kg): 61.154053 Physical ExamGeneral appearance: awakeAbdomen: soft ResultsFindings/Data:Laboratory Tests [...] (Auto) (25.0 - 55.0 %) 15.8 L [place] % (Auto) (0.0 - 10.0 %) 9.1 Eos % (Auto) (0.0 - 5.0 %) 1.9 Baso % (Auto) (0.0 - 1.0 %) 0.4 Neut # (Auto) (1.8 - 7.7 K/mm3) 5.58 Lymph # (Auto) (1.0 - 5.0 K/mm3) 1.22 [place] # (Auto) (0 - 0.8 K/mm3) 0.70 Eos # (Auto) (0.0 - 0.5 K/mm3) 0.15 Baso # (Auto) (0.0 - 0.2 K/mm3) 0.03 Nucleated RBC % (0 - 0 %) 0.0 Nucleated RBCs # (Man) (0.0 - 0.1 K/mm3) 0.00 Diagnosis, Assessment PlanFree Text A P:Diet as tolerated; PPI and carafate for gastritis seen on EGD at 1235 RPT #:[id number] OF REPORTPRProgress tvqt1384-21-65A12:34:00V.SYNX16641677-0606JKKfkpw able for patient pklzWPWSUNYTWVCGIZ3969-27-98N82:35:44 [facility] 2022-09-20 12:29:00 U25574332557GpMh3HfV bJ9os613nxEKFGoJG4DVFUVK/spgW mZIXQseStiABRAojQ4xGQok1Ieo2729-91-53F45:29:00 [facility] ([facility])Hospitalist Progress NoteREPORT#:[id number] REPORT STATUS: SignedDATE:09/20/22 TIME: 1229 PATIENT: BUTCH ROCHA UNIT #: [id number]#: [id number] [address] [birth year] AGE: 57 SEX: F ATTEND: José Miguel Padilla MDADM AUTHOR: Mayda Vo WINDSCREEN FITTER * ALL edits or amendments must be [...] Nasal cannula 09/19 2300 Nasal 2 cannula 09/19 2034 97 Nasal 2 28 cannula 09/19 2010 [...] WEIGHT: Weight (lb): 134Weight (oz): 10.93Weight (kg): 61.237567 Physical ExamGeneral appearance: alert, awake, oriented, conversational, no respiratory distressHead/Eyes: atraumatic, normocephalic, PERRLACardiovascular: normal capillary refill, regular rate rhythmRespiratory: aerating well, symmetric expansionAbdomen: tenderness, softExtremities: moves all, normal capillary refillNeuro/INSPECTOR SCALES: alert, oriented X 3Skin: dry, intact ResultsFindings/Data:Laboratory [...] (Auto) (25.0 - 55.0 %) 15.8 L [place] % (Auto) (0.0 - 10.0 %) 9.1 Eos % (Auto) (0.0 - 5.0 %) 1.9 Baso % (Auto) (0.0 - 1.0 %) 0.4 Neut # (Auto) (1.8 - 7.7 K/mm3) 5.58 Lymph # (Auto) (1.0 - 5.0 K/mm3) 1.22 [place] # (Auto) (0 - 0.8 K/mm3) 0.70 [...] documented by NAINA Vo. at 1438 at 0919 RPT #:[id number] OF REPORTPRProgress mbxg6530-78-47Y19:29:00V.RLQG69915405-1382RPHdzuo able for patient pzovSZWMZLSOHEIZXT8010-03-45T42:50:40 [facility] 2022-09-19 18:00:00 [id number] j10toJfiB19wacs20S6yVaGrCLlOO Ob/F8wvsyZcJ8Kcb16DhqpghyiM8125-08-70N02:00:00 [facility] ([facility])Post Anesthesia EvaluationREPORT#:[id number] REPORT STATUS: SignedDATE:09/19/22 TIME: 1800 PATIENT: BUTCH ROCHA UNIT #: [id number]#: [id number] [address] [birth year] AGE: 57 SEX: F ATTEND: José Miguel Padilla [facility] AUTHOR: Issac Swanson MD * ALL edits [...] 09/19 174 O2 Flow Rate 8 09/19 174 Pulse Ox 95 09/19 1745 B/P 105/64 [...] no apparent anes. issues at 1800 RPT #:[id number] OF REPORTPRProgress uaos7220-51-50Y92:00:00V.IOIM05010412-7555SWMyshg able for patient sqphYCBBGMKZITDHGZ3564-52-25H85:01:46 [facility] 2022-09-19 17:53:00 N740700679963f5JtStK qxHw1lSDcNDuq41C/pCvJVIjmRv+y 1+4CgGNUChm3P5m9idPNdh+IfCY2873-91-06O41:53:45927 0-0240 [facility] PATIENT NAME: BUTCH ROCHA ADMIT DATE: 09/16/22ACCOUNT NO: [id number] ROOM NO: V.3039 AGE: 57 REPORT TYPE: OPERATIVE REPORT SEX: F DATE OF : 65ADMITTING PHYSICIAN:José Miguel Padilla MD ATTENDING PHYSICIAN:José Miguel Padilla MD OPERATION DATE: 09/19/2022 PREOPERATIVE DIAGNOSIS: Dysphagia. POSTOPERATIVE DIAGNOSIS: Dysphagia with staple line bleeder. OPERATIVE PROCEDURE: EGD and cauterization of gastric staple line bleeder. PRIMARY SURGEON: Dr. Vasquez. SIFTING OPERATOR: ____. ANESTHESIA: Monitored sedation. ANESTHESIOLOGIST: ____. INDICATIONS: [...] Dictated: 09/19/2022 17:53:53Date Transcribed: 09/19/2022 19:35:51DL/DOROTA/Ana #: [id number] PATIENT NAME: BUTCH ROCHA Receipt ID: [id number] and Edited by José Miguel Padilla MD On 09/29/22 3:29:43 PM at 0333 PATIENT NAME: BUTCH ROCHA vlcpga7136-67-61Q66:35:00V.DUL01635013-2165TPEdnd lable for patient vhieOZWHNVYEQKHATD4976-13-62M40:33:58 [facility] 2022-09-19 17:47:00 [id number]+PT0K T7n72EgF44wMKeajq9KqqdaAfSEM1 Uybrybo/fuxJLPJW3S4GpnWYeEN1542-55-56G90:47:00 [facility] HospitalBrief Op NoeREPORT#:[id number] REPORT STATUS: SignedDATE:09/19/22 TIME: 1746 PATIENT: BUTCH ROCHA UNIT #: [id number]#: [id number] ROOM/BED: [facility]-ADOB: [birth year] AGE: 57 SEX: F ATTEND: José Miguel Padilla [facility] AUTHOR: José Miguel Padilla MD * ALL edits or amendments must be made on the electronic/computer document * Op/Inv Proc Note - BriefPre-procedure diagnosis:dysphagiaPost-procedure diagnosis: same as pre procedure dxProcedures performed:EGD and cauterization of gastric bleederPrimary Surgeon:DarmadiAssistant(s): LamFindings:gastric stapled line bleeder; gastritisComplications: noneEstimated blood loss in ml's: 3 ccSpecimens removed/altered: none at 1749 RPT #:[id number] OF REPORTOPOperative zmglbb0966-26-16D33:47:00V.OGIE03876246-7488CFQbz ilable for patient pyavNLJGTSIIERSNTS6020-97-29B97:49:24 [facility] 2022-09-19 13:02:00 A01620420786x4nYmroU b1Q9IqalGgYK8DfW+pzzVvD5z7ukE ITwxx3v+DP5IEW9W1fpvbYVcMlf9841-25-63O47:02:00 [facility] ([facility])Hospitalist Progress NoteREPORT#:[id number] REPORT STATUS: SignedDATE:09/19/22 TIME: 1302 PATIENT: BUTCH ROCHA UNIT #: [id number]#: [id number] [address] [birth year] AGE: 57 SEX: F ATTEND: José Miguel Padilla [facility] AUTHOR: Mayda Vo WINDSCREEN FITTER * ALL edits or amendments must be [...] 91 09/18 2334 Nasal 2 cannula 09/18 2046 98.2 92 17 109/65 79.8 92 09/18 1953 96 Nasal 2 cannula 09/18 1535 98.6 75 18 101/67 78.5 94 Nasal cannula PATIENT WEIGHT: Weight (lb): 295Weight (oz): 6.71Weight (kg): 134.000 Physical ExamGeneral appearance: obese, alert, awake, oriented, conversational, no respiratory distressHead/Eyes: atraumatic, normocephalic, PERRLACardiovascular: normal capillary refill, regular rate rhythmRespiratory: aerating well, symmetric expansionAbdomen: tenderness, softExtremities: moves all, normal capillary refillNeuro/INSPECTOR SCALES: alert, oriented X 3Skin: dry, intact ResultsFindings/Data:Laboratory [...] plan as documented by NAINA Vo. at 1306 at 5051 RPT #:[id number] OF REPORTPRProgress gwuq2224-36-04F22:02:00V.KJPR92643677-0794DEAycgt able for patient eicwFKKBLXATUPSAVB2737-96-52A08:06:28 [facility] 2022-09-19 11:02:00 [id number] +JzYAPrpJhPN0rv+j6SxYzMJQznEF 8RWaJpnXtzvBzF6cb8WXvNP0D0T0709-47-10A40:02:00 [facility] ([facility]General Surgery Progress NoteREPORT#:[id number] REPORT STATUS: SignedDATE:09/19/22 TIME: 1102 PATIENT: BUTCH ROCHA UNIT #: [id number]#: [id number] [address] [birth year] AGE: 57 SEX: F ATTEND: [...] and tertiary esophageal contractions. Location: HCAImpression By: Mihir Baptiste MD Diagnosis, Assessment PlanFree Text A P:Dysphagia possible spasm versus tight hiatal repair; EGD at 1104 RPT #:[id number] OF REPORTPRProgress njhh8184-82-49D53:02:00V.OCSR77942894-5507CGIxlrz able for patient xrvyYJURUROIFZJWMN7828-01-39J24:05:34 [facility] 2022-09-18 12:45:00 [id number] 7EQEeVbSDmS58KxYtsX664v6WndAz cvy5xerjiuUq5XK1xt/MWaI0axV7875-46-92I91:45:00 [facility]General [facility] Progress NoteREPORT#:[id number] REPORT STATUS: SignedDATE:09/18/22 TIME: 1245 PATIENT: BUTCH ROCHA UNIT #: [id number]#: [id number] ROOM/BED: [facility]-ADOB: [birth year] AGE: 57 SEX: F ATTEND: José Miguel Padilla [facility] AUTHOR: José Miguel Padilla MD * ALL [...] (Auto) (25.0 - 55.0 %) 16.2 L [place] % (Auto) (0.0 - 10.0 %) 8.0 Eos % (Auto) (0.0 - 5.0 %) 1.4 Baso % (Auto) (0.0 - 1.0 %) 0.4 Neut # (Auto) (1.8 - 7.7 K/mm3) 7.60 Lymph # (Auto) (1.0 - 5.0 K/mm3) 1.67 [place] # (Auto) (0 - 0.8 K/mm3) 0.83 H Eos # (Auto) (0.0 - 0.5 K/mm3) 0.14 Baso # (Auto) (0.0 - 0.2 K/mm3) 0.04 Nucleated RBC % (0 - 0 %) 0.0 Nucleated RBCs # (Man) (0.0 - 0.1 K/mm3) 0.00 Diagnosis, Assessment PlanFree Text A P:UGI study; K+ replacement at 1246 RPT #:[id number] OF REPORTPRProgress josc4079-84-17O82:45:00V.SQHU95226449-2052CZIhsle able for patient gqyuGQEMYNBQPTVTRG0676-44-81D61:46:37 [facility] 2022-09-18 11:50:00 [id number] 3amE5LmrFaKpoweBERn+LJbHf/qlq oJO5eNorBoboPQxG/hL2lDvV+qo7141-86-38A69:50:00 [facility] ([facility])Hospitalist Progress NoteREPORT#:[id number] REPORT STATUS: SignedDATE:09/18/22 TIME: 1150 PATIENT: BUTCH ROCHA UNIT #: [id number]#: [id number] [address] [birth year] AGE: 57 SEX: F ATTEND: José Miguel Padilla MDADM AUTHOR: Mayda oV WINDSCREEN FITTER * ALL edits or amendments must be [...] expansionAbdomen: tenderness, softExtremities: moves all, normal capillary refillNeuro/INSPECTOR SCALES: alert, oriented X 3Skin: dry, intact ResultsFindings/Data:Laboratory [...] (Auto) (25.0 - 55.0 %) 16.2 L [place] % (Auto) (0.0 - 10.0 %) 8.0 Eos % (Auto) (0.0 - 5.0 %) 1.4 Baso % (Auto) (0.0 - 1.0 %) 0.4 Neut # (Auto) (1.8 - 7.7 K/mm3) 7.60 Lymph # (Auto) (1.0 - 5.0 K/mm3) 1.67 [place] # (Auto) (0 - 0.8 K/mm3) 0.83 [...] updated family at bedside. Marco Anthony 09/18/22 1049:Attestations Physician AttestationAgree w/findings plan:Agree with the findings and plan as documented by NAINA Vo. at 1451 at 1846 RPT #:[id number] OF REPORTPRProgress qndj8044-78-21W48:50:00V.FUJO65111308-0974MAIbuvo able for patient bdfoYBZKVLYYKSLACY2805-30-26Y75:55:55 [facility] 2022-09-17 13:39:00 [id number] LmUwuttQttl2ah8nQh3QadRI8JPD6 z1M15QQZfkY+cBCcrReeiDDlnEX7949-04-48O94:39:00 [facility] Progress NoteREPORT#:[id number] REPORT STATUS: SignedDATE:09/17/22 TIME: 1339 PATIENT: BUTCH ROCHA UNIT #: [id number]#: [id number] ROOM/BED: [facility]-ADOB: [birth year] AGE: 57 SEX: F ATTEND: [...] Pulse Resp B/P B/P Mean Pulse Ox XeE310/27-09/17 97.2-98.8 80-97 15- 112-158/61-84 81.0-102.5 90-100 32 24 hour I O ending at 0700: 09/17 0700 09/16 1900 Intake Total Output Total 200 Balance -200 Output, Urine 200 PATIENT WEIGHT: Weight (lb): 295Weight (oz): 6.71Weight (kg): 134.000 Physical ExamGeneral appearance: awakeAbdomen: soft ResultsFindings/Data:Laboratory Tests 09/17/22 0426:[Embedded Image Not Available]Laboratory Tests 09/17 09/17 0427 0426 Chemistry Sodium (136 - 145 mmol/L) [...] - 2.4 mg/dL) 1.9 Laboratory Tests 09/17 0426 Hematology WBC (4.5 - 12.5 K/mm3) 16.9 [...] (Auto) (25.0 - 55.0 %) 4.5 L [place] % (Auto) (0.0 - 10.0 %) 8.7 Eos % (Auto) (0.0 - 5.0 %) 0.0 Baso % (Auto) (0.0 - 1.0 %) 0.1 Neut # (Auto) (1.8 - 7.7 K/mm3) 14.54 H Lymph # (Auto) (1.0 - 5.0 K/mm3) 0.76 L [place] # (Auto) (0 - 0.8 K/mm3) 1.47 H Eos # (Auto) (0.0 - 0.5 K/mm3) 0.00 Baso # (Auto) (0.0 - 0.2 K/mm3) 0.02 Nucleated RBC % (0 - 0 %) 0.0 Nucleated RBCs # (Man) (0.0 - 0.1 K/mm3) 0.00 Diagnosis, Assessment PlanFree Text A P:Replace K+ at 1340 RPT #:[id number] OF REPORTPRProgress wbmj9062-24-98V97:39:00V.[id number] able for patient iyhjQAXYJYAHXDBIHT9976-75-16F64:40:47 [facility] 2022-09-17 08:41:00 [id number] vgfhttx4yXajwYADAr2dE3ZHuIAr7 jT29oyFpMdAe0Kzy1JSn59AdN1W4827-84-24K95:41:00 [facility]Ad[facility] General ConsultationREPORT#:[id number] REPORT STATUS: SignedDATE:09/17/22 TIME: 0841 PATIENT: BUTCH ROCHA UNIT #: [id number]#: [id number] ROOM/BED: [facility]-ADOB: [birth year] AGE: 57 SEX: F ATTEND: José Miguel Padilla [facility] AUTHOR: Mayda Vo WINDSCREEN FITTER * ALL edits or amendments must be [...] DCr 09/16 (DUONEB) INH 1449 Blood Formation,Coagulation Sig/Joseline Start time Last Medication Dose Route [...] Result Date Time Pulse Ox 94 09/17 716 B/P 140/84 09/17 716 B/P Mean 102.5 09/17 716 O2 Delivery Nasal cannula 09/17 716 Temp 98.2 09/17 716 Pulse 87 09/17 07 Resp 16 09/17 07 FiO2 32 09/17 0132 O2 Flow Rate 3 09/17 0132 24 hour I O ending at 0700: 09/17 0700 09/16 1900 Intake Total Output Total 200 Balance -200 Output, Urine 200 PATIENT WEIGHT: Weight (lb): 295Weight (oz): 6.71Weight (kg): 134.000 General appearance: alert, awake, orientedHead/Eyes: atraumatic, normocephalicCardiovascular: normal capillary refill, regular rate rhythmRespiratory: aerating well, symmetric expansionAbdomen: tenderness, softExtremities: moves all, normal capillary refillNeuro/INSPECTOR SCALES: alert, oriented X 3Skin: dry ResultsFindings/Data:Laboratory Tests: [...] (Auto) (25.0 - 55.0 %) 4.5 L [place] % (Auto) (0.0 - 10.0 %) 8.7 Eos % (Auto) (0.0 - 5.0 %) 0.0 Baso % (Auto) (0.0 - 1.0 %) 0.1 Neut # (Auto) (1.8 - 7.7 K/mm3) 14.54 H Lymph # (Auto) (1.0 - 5.0 K/mm3) 0.76 L [place] # (Auto) (0 - 0.8 K/mm3) 1.47 [...] Mayda Vo. at 1424 at 1042 RPT #:[id number] OF REPORTUCMmuzjlpjnxpu9869-46-11Q36:41:00V.PDOC2 [id number] for patient ynhuILUIJWYPHDUMWG7504-94-13D11:24:33 [facility] 2022-09-16 17:30:00 [id number] MvVd4aqMYyT89E4Pue/J86Oq3vBAn E4gpviXgbh0wnNc99KU0pprylnk2612-09-92C46:30:00 [facility] ([facility]AREPost Anesthesia EvaluationREPORT#:[id number] REPORT STATUS: SignedDATE:09/16/22 TIME: 1730 PATIENT: BUTCH ROCHA UNIT #: [id number]#: [id number] ROOM/BED: [facility]-ADOB: [birth year] AGE: 57 SEX: F ATTEND: José Miguel Padilla [facility] AUTHOR: Jo Ho MD * ALL edits [...] noneConclusions: no apparent anes. issues at 1733 RPT #:[id number] OF REPORTPRProgress skdt4558-80-71B08:30:00V.[id number] able for patient rjfyDMIZFCQZJTYZUT0474-30-60F08:34:17 [facility] 2022-09-16 15:00:00 [id number] itrQuf2uW5aPH3EcoiuGZpm8NAJuq u93gWI22sl+kX789osvYuQRpgOF8350-73-49G37:00:20266 7-0163 [facility] PATIENT NAME: BUTCH ROCHA ADMIT DATE: 09/16/22ACCOUNT NO: [id number] ROOM NO: [facility] AGE: 57 REPORT TYPE: OPERATIVE REPORT SEX: F DATE OF : 65ADMITTING PHYSICIAN:José Miguel Padilla MD ATTENDING PHYSICIAN:José Miguel Padilla MD OPERATION DATE: 09/16/2022 PREOPERATIVE DIAGNOSES: Morbid obesity and a hiatal hernia with gastroesophageal reflux disease. POSTOPERATIVE DIAGNOSIS: PROCEDURE: Robotic sleeve gastrectomy; hiatal hernia repair with gastropexy. SURGEON: José Miguel Padilla MD ANESTHESIA: General. ANESTHESIOLOGIST: Dr. Ho. SIFTING OPERATOR: Juan Ramon. INDICATIONS: The patient is a [...] progressing toward the angle of His. A 40-Malay bougie was then inserted with the tip [...] MD Date Dictated: 09/16/2022 15:00:05Date Transcribed: 09/16/2022 19:33:22DL/PARSarahb #: [id number] ID: [id number] by José Miguel Padilla MD On 09/29/2022 03:28:23 PM at 0328 PATIENT NAME: BUTCH ROCHA ykdjhz6123-70-63J25:33:00V.[id number] lable for patient dzsgDYSEUXGQRALFIB1627-05-15B22:28:56 [facility] 2022-09-16 14:14:00 [id number] piQsE/r8zkHtEyNbeRXyuiPNBCA8Z hyHjx2Sho2Qi4D74nivLv48pia78526-97-54N13:14:00 [facility] ([facility])Brief Op NoeREPORT#:[id number] REPORT STATUS: SignedDATE:09/16/22 TIME: 1414 PATIENT: BUTCH ROCHA UNIT #: [id number]#: [id number] ROOM/BED:: 65 AGE: 57 SEX: F ATTEND: José Miguel Padilla AUTHOR: José Miguel Padilla MD * ALL edits or amendments must be made on the electronic/computer document * Op/Inv Proc Note - BriefPre-procedure diagnosis:morbid obesity with gerd/hiatal herniaPost-procedure diagnosis: same as pre procedure dxProcedures performed:robotic sleeve gastrectomy / hiatal hernia repair with gastropexyPrimary Surgeon:RandyAssistant(s): Juan RamonFindings:moderate sized hiatal herniaComplications: noneEstimated blood loss in ml's: 20 ccSpecimens removed/altered: stomach at 1416 RPT #:[id number] OF REPORTOPOperative yrjpnc4303-87-80G36:14:00V.[id number] ilable for patient lxmyFBYUAQJBUGYFFK9730-27-01P43:16:56 [facility] 2021-12-24 12:29:00 [id number] +ifgUD1KON8oEUOTuMYt3zAOdpaxM rVYPWHYpWF5KRj+SndBORz+A/+f1066-96-99R80:29:00 [facility] ([facility]Post Anesthesia EvaluationREPORT#:[id number] REPORT STATUS: SignedDATE:12/24/21 TIME: 1229 PATIENT: BUTCH ROCHA UNIT #: [id number]#: [id number] ROOM/BED:: 65 AGE: 56 SEX: F ATTEND: José Miguel Padilla AUTHOR: Theodore Gibson MD * ALL edits [...] Result Date Time Pulse Ox 95 12/24 0845 B/P 101/57 12/24 0845 O2 Delivery Room air 12/24 944 Temp 36.1 12/24 0945 Pulse 67 12/24 0945 Resp 14 12/24 0945 O2 Flow Rate 8 12/24 0843 Cardiovascular: no change, CV system stable, vital signs stableRespiratory/Airway: respiratory system stable, maintains without supportPain: adequately controlledHydration: adequateTemp status: greater than 96.8FPresence of N/V: noAnesthesia complications: noOther changes requiring f/u: noneConclusions: no apparent anes. issues, outpts eval prior DC home at 1230 RPT #:[id number] OF REPORTPRProgress egur7528-09-79Q85:29:00V.PEUU80656537-6502RUHkflm able for patient useiXXQULKATPPNCRJ1248-66-65C24:30:59 [facility] 2021-12-24 09:03:00 [id number] p8nnhwi2OovazMtIzJto5keAd612J m5+rDI6nJ63MO61+pRKTuuD4hCI7495-21-99N46:03:12735 6-0103 [facility] PATIENT NAME: BUTCH ROCHA ADMIT DATE: 12/24/21ACCOUNT NO: [id number] ROOM NO: AGE: 56 REPORT TYPE: OPERATIVE REPORT SEX: F DATE OF : 65ADMITTING PHYSICIAN: ATTENDING PHYSICIAN:José Miguel Padilla MD OPERATION DATE: 12/24/2021 PREOPERATIVE DIAGNOSIS: Back lipoma and nevi. POSTOPERATIVE DIAGNOSIS: Back lipoma and nevi. OPERATIVE PROCEDURE: Excisional biopsy of lipoma and nevus in the upper back. OPERATING SURGEON: José Miguel Padilla MD SIFTING OPERATOR: ANESTHESIA: General. INDICATIONS: A 56-year-old female with [...] Dictated By: José Miguel Padilla MD WT: OP:МАРИНА/JULITA/ALMA DELIADD: 12/24/2021 09:03:35 PATIENT NAME: BUTCH ROCHA Conf#: [id number]/DID#: [id number] Authenticated by José Miguel Padilla MD On 12/26/2021 10:56:28 AM at 1056 PATIENT NAME: BUTCH ROCHA vjbnda6888-23-38W02:15:00V.[id number] lable for patient mvxtTPUNQWGSIZPPBM9407-76-94A65:57:13 [facility] 2021-12-24 08:57:00 [id number] jTgmEXRhzLgSFDSBz7fAcvASaDr+/ ocd5AhirMQszBuoi2qRv9wD7ly+1647-73-39K87:57:00 [facility] ([facility])Brief Op NoeREPORT#:[id number] REPORT STATUS: SignedDATE:12/24/21 TIME: 856 PATIENT: BUTCH ROCHA UNIT #: [id number]#: [id number] ROOM/BED:: 65 AGE: 56 SEX: F ATTEND: [...] removed/altered: lipoma and nevi at 0859 RPT #:[id number] OF REPORTOPOperative bpsbuk9895-11-53J93:57:00V.LBCX66372162-4792TOBgt ilable for patient rgrsXYAPOZDCDOWGJZ2966-95-42U84:59:41 [facility]
--- NOTE | 2023-12-09 00:52 | ER ---
Nurse's Notes [facility] Name: Carmen Rocha Age: 58 yrs Sex: Female : 1965 Arrival Date: 12/09/2023 Time: 00:25 Bed 13 Private MD: Diagnosis: Dental Abscess Presentation: 12/08 00:44 Chief complaint: Patient states: I have a tooth abscess. i had been taking amoxicillin bm8 for it but I cant find a dentist to have the thing removed. Coronavirus screen: At this time, the client does not indicate any symptoms associated with coronavirus-19. Ebola Screen: Patient negative for fever greater than or equal to 101.5 degrees Fahrenheit, and additional compatible Ebola Virus Disease symptoms Patient denies exposure to infectious person. Patient denies travel to an Ebola-affected area in the 21 days before illness onset. No symptoms or risks identified at this time. Initial Sepsis Screen: Does the patient meet any 2 criteria? No. Patient's initial sepsis screen is negative. Does the patient have a suspected source of infection? No. Patient's initial sepsis screen is negative. Risk Assessment: Do you want to hurt yourself or someone else? Patient reports no desire to harm self or others. Onset of symptoms was November 29, 2023 at 08:00. Care prior to arrival: Medication(s) given: Tylenol, 1000 mg, norco. 00:44 Method Of Arrival: Ambulatory bm8 00:44 Acuity: NIKKI 3 bm8 Triage Assessment: 00:46 General: Appears in no apparent distress. uncomfortable, Behavior is calm, cooperative, bm8 appropriate for age. Pain: Complains of pain in right cheek, mouth and right jaw Pain does not radiate. Pain currently is 10 out of 10 on a pain scale. Quality of pain is described as aching, crampy, sharp. EENT: Poor dentition noted. Dental caries noted in upper right second molar (#2) and upper right first molar (#3) Reports pain in right cheek, mouth and right jaw. Neuro: No deficits noted. Level of Consciousness is awake, alert, obeys commands, Oriented to person, place, time, situation, Appropriate for age. Cardiovascular: Capillary refill < 3 seconds Patient's skin is warm and dry. Respiratory: No deficits noted. Airway is patent Respiratory effort is even, unlabored, Respiratory pattern is regular, symmetrical. GI: No deficits noted. No signs and/or symptoms were reported involving the gastrointestinal system. : No deficits noted. No signs and/or symptoms were reported regarding the genitourinary system. Historical: - Allergies: 00:46 No Known Allergies; bm8 - Home Meds: 00:46 Unable to obtain [Active]; bm8 - PMHx: 00:46 back problems; spinal stenosis; blood clot leg; Hypothyroidism; bm8 - PSHx: 00:46 Cholecystectomy; L ankle SX repair; Weight loss surgery; bm8 - Immunization history:: Adult Immunizations not up to date. - Infectious Disease History:: Denies. - Social history:: Smoking status: unknown. Screenin:49 [facility] ED Fall Risk Assessment (Adult) History of falling in the last 3 months, bm8 including since admission No falls in past 3 months (0 pts) Confusion or Disorientation No (0 pts) Intoxicated or Sedated No (0 pts) Impaired Gait Yes (1 pt) Mobility Assist Device Used Yes (1 pt) Altered Elimination No (0 pt) Score/Fall Risk Level 3 or more points = High Risk Oriented to surroundings, Maintained a safe environment, Educated pt \T\ family on fall prevention, incl call for assistance when getting out of bed, Assessed \T\ reinforced patient's understanding of fall precautions, Utilized family, sitter, or virtual hot baller as indicated. Abuse screen: Denies threats or abuse. Nutritional screening: No deficits noted. Tuberculosis screening: No symptoms or risk factors identified. Assessment: 00:49 Reassessment: see triage assessment. bm8 Vital Signs: 00:44 BP 112 / 60; Pulse 85; Resp 15; Temp 99.3; Pulse Ox 92% on R/A; Weight 127.01 kg; bm8 Height 5 ft. 3 in. ; Pain 10/10; 01:05 BP 101 / 65; Pulse 80; Resp 17; Temp 99.1; Pulse Ox 94% ; Pain 8/10; bm8 00:44 Body Mass Index 49.60 (127.01 kg, 160.02 cm) bm8 00:44 Pain Scale: Adult bm8 01:05 Pain Scale: Adult bm8 [place] Coma Score: 00:49 Eye Response: spontaneous(4). Motor Response: obeys commands(6). Verbal Response: bm8 oriented(5). Total: 15. ED Course: 00:27 Patient arrived in ED. jj6 00:36 Samuel Mckeon MD is Attending Physician. ec2 00:44 Pavan Alvarado, RN is Primary Nurse. bm8 00:46 Triage completed. bm8 00:46 Arm band placed on right wrist. Patient placed in an exam room, on a stretcher. bm8 00:49 Patient has correct armband on for positive identification. Bed in low position. Call bm8 light in reach. Side rails up X 1. Adult w/ patient. Pulse ox on. NIBP on. Door closed. Noise minimized. Verbal reassurance given. Head of bed elevated. 00:49 No provider procedures requiring assistance completed. bm8 01:05 Provided Education on: POST ER CARE, need to follow up with DENTIST. bm8 01:05 Patient did not have IV access during this emergency room visit. bm8 01:08 Samuel Mckeon MD is Attending Physician. bm8 Administered Medications: 00:52 CANCELLED (Physician Discretion): acetaminophen-codeine(300 mg-30 mg) 1 tablet PO once; ec2 RASS on ADMIN: Combtv4, Very Agttd3, Agttd2, Rstlss1, AlertClm0, Drwsy-1, Lt Sdtn-2, Mod Sdtn-3, Dp Sdtn-4, UnArsble-5 01:04 Drug: Ketorolac IM 30 mg IM once Route: IM; Site: right deltoid; bm8 01:05 Follow up: Response: Medication administered at discharge. bm8 01:04 Drug: Amoxicillin-Clavulanate PO 875 mg PO once Route: PO; bm8 01:04 Follow up: Response: Medication administered at discharge. bm8 01:04 Drug: oxyCODONE PO 10 mg PO once Route: PO; bm8 01:04 Follow up: Response: Medication administered at discharge. bm8 Medication: 00:49 VIS not applicable for this client. bm8 Outcome: 00:51 Discharge ordered by . ec2 01:05 Discharged to home ambulatory, bm8 01:05 Condition: stable 01:05 Discharge instructions given to patient, family, Instructed on discharge instructions, follow up and referral plans. medication usage, Demonstrated understanding of instructions, follow-up care, medications, Prescriptions given X 2, 01:08 Patient left the ED. bm8 Signatures: Kena Joaquin jj6 Samuel Mckeon MD MD ec2 Pavan Alvarado RN RN bm8
--- NOTE | 2023-12-09 00:52 | EDPHYS ---
Physician Documentation [facility] Name: Carmen Rocha Age: 58 yrs Sex: Female : 1965 Arrival Date: 12/09/2023 Time: 00:25 Bed 13 Private MD: ED Physician Samuel Mckeon HPI: 12/08 00:52 This 58 yrs old Female presents to ER via Ambulatory with complaints of ec2 Toothache. 00:52 Patient arrives today for dental issues. Patient with right upper dental pain. Ongoing ec2 for at least several days. Patient also complains of some soft tissue swelling overlying the area. No fevers or chills, no nausea or vomiting.. Historical: - Allergies: 00:46 No Known Allergies; bm8 - Home Meds: 00:46 Unable to obtain [Active]; bm8 - PMHx: 00:46 back problems; spinal stenosis; blood clot leg; Hypothyroidism; bm8 - PSHx: 00:46 Cholecystectomy; L ankle SX repair; Weight loss surgery; bm8 - Immunization history:: Adult Immunizations not up to date. - Infectious Disease History:: Denies. - Social history:: Smoking status: unknown. ROS: 00:52 Constitutional: as per hpi ec2 Exam: 00:52 Constitutional: GEN: NAD Head: atraumatic Eyes: EOMI Ears: External ears are normal. ec2 Mouth: Poor general dentition. Right maxillary with slight amount of erythema, no significant warmth or fluctuance appreciated. Mouth no malocclusion. CV: regular rate LUNGS: no respiratory distress ABD: non-distended SKIN: no evidence of rashes MSK: no evidence of trauma NEURO: moves all extremities equally Vital Signs: 00:44 BP 112 / 60; Pulse 85; Resp 15; Temp 99.3; Pulse Ox 92% on R/A; Weight 127.01 kg; bm8 Height 5 ft. 3 in. ; Pain 10/10; 01:05 BP 101 / 65; Pulse 80; Resp 17; Temp 99.1; Pulse Ox 94% ; Pain 8/10; bm8 00:44 Body Mass Index 49.60 (127.01 kg, 160.02 cm) bm8 00:44 Pain Scale: Adult bm8 01:05 Pain Scale: Adult bm8 [place] Coma Score: 00:49 Eye Response: spontaneous(4). Motor Response: obeys commands(6). Verbal Response: bm8 oriented(5). Total: 15. MDM: 00:36 Patient medically screened. ec2 00:52 Data reviewed: vital signs. ED course: Patient arrives today for dental pain. ec2 Examination remarkable for well-appearing nontoxic dividual is otherwise in no acute distress with dental findings as above. Will start the patient on antibiotics, give the patient pain medications and discharged home. Low suspicion for deep space infection given the patient's nontoxic steady and well appearance without malocclusion. Will defer any advanced imaging such as CT scan of the face or neck. Additionally patient without systemic signs symptoms, will defer lab work.. Administered Medications: 00:52 CANCELLED (Physician Discretion): acetaminophen-codeine(300 mg-30 mg) 1 tablet PO once; ec2 RASS on ADMIN: Combtv4, Very Agttd3, Agttd2, Rstlss1, AlertClm0, Drwsy-1, Lt Sdtn-2, Mod Sdtn-3, Dp Sdtn-4, UnArsble-5 01:04 Drug: Ketorolac IM 30 mg IM once Route: IM; Site: right deltoid; bm8 01:05 Follow up: Response: Medication administered at discharge. bm8 01:04 Drug: Amoxicillin-Clavulanate PO 875 mg PO once Route: PO; bm8 01:04 Follow up: Response: Medication administered at discharge. bm8 01:04 Drug: oxyCODONE PO 10 mg PO once Route: PO; bm8 01:04 Follow up: Response: Medication administered at discharge. bm8 Disposition Summary: 12/09/23 00:51 Discharge Ordered Notes: Location: Home ec2 Condition: Stable ec2 Diagnosis - Dental Abscess ec2 Followup: ec2 - With: Private Physician - When: - Reason: Re-evaluation by your physician Discharge Instructions: - Discharge Summary Sheet ec2 - Dental Abscess, Xkot-ax-Qkso ec2 Forms: - Medication Reconciliation Form ec2 - Thank You Letter ec2 - Antibiotic Education ec2 - Prescription Opioid Use ec2 - Patient Portal Instructions ec2 - Leadership Thank You Letter ec2 Prescriptions: - Augmentin 875-125 mg Oral Tablet - take 1 tablet ORAL route every 12 hours for 10 days; 20 tablet; Refills: 0, ec2 Product Selection Permitted - methocarbamol 500 mg Oral tablet - take 2 tablets ORAL route 4 times per day; 30 tablet; Refills: 0, Product ec2 Selection Permitted Signatures: Samuel Mckeon MD MD ec2 Pavan Alvarado RN RN bm8 Corrections: (The following items were deleted from the chart) 00:52 00:50 Acetaminophen-Codeine PO (300 mg-30 mg) 1 tablet PO once; RASS on ADMIN: Combtv4, ec2 Very Agttd3, Agttd2, Rstlss1, AlertClm0, Drwsy-1, Lt Sdtn-2, Mod Sdtn-3, Dp Sdtn-4, UnArsble-5 ordered. ec2
[2023-12-09] MEDS ORDERED: AMOX/K CLAV 875 MG TAB ONE (00:55)
[2023-12-09] MEDS ORDERED: OXYCODONE HCL 5 MG TAB ONE (00:55)
[2023-12-09] MEDS ORDERED: KETOROLAC 30 MG/ML INJ ONE (00:56)
[2023-12-09 01:50] VITALS: BP 101/65; TEMP 99.1; O2SAT 94
== END 2023-12-09 01:08 | disposition home or self-care (01) ==
LOC: ER 00:25
DX: K04.7 Periapical abscess without sinus (principal)
CPT/HCPCS: 96372; 99284